=== PATIENT | male | born 1950 | race Caucasian/White ===

== ENCOUNTER 2016-07-09 10:18 | Emergency (ER) | payer OTHER ==
[2016-07-09 10:38] VITALS: BP 152/98; PULSE 76; TEMP 97.9; BMI 39.4
--- NOTE | 2016-07-09 12:43 | PDOC ---
History of Present Illness - General Chief Complaint: Hemorrhoids Stated Complaint: HEMORRHOIDS (LEAKING) Time Seen by Provider: 07/09/16 10:59 - History of Present Illness Initial Comments: 07/17/16 08:25 CHIEF COMPLAINT: bleeding hemorrhoids HISTORY OF PRESENT ILLNESS: 66 yo M with hx of diabetes, perirectal abscess, and recurrent hemorrhoids presents to fast track with "leaking" hemorrhoid. Patient states he was concerned because he has had surgery for a perirectal abscess previously "and wanted to catch it early if it was that again." Patient states when he wipes there is blood. Patient denies fever, chills, nausea, vomitnig, diarrhea, or pain to rectum. No recent travel or sick contacts. PAST MEDICAL HISTORY: as per hpi FAMILY HISTORY: Denies SOCIAL HISTORY: Denies tobacco, alcohol, illicit drug use. SURGICAL HISTORY: Denies ALLERGIES: No known drug allergies REVIEW OF SYSTEMS General/Constitutional: Denies fever or chills. Denies weakness, weight change. HEENT: Denies change in vision. Denies ear pain or discharge. Denies sore throat. Cardiovascular: Denies chest pain or shortness of breath. Respiratory: Denies cough, wheezing, or hemoptysis. Gastrointestinal: Denies nausea, vomiting, diarrhea or constipation. Denies rectal bleeding. Genitourinary: Hemorrhoid, "feels like it's leaking." Denies dysuria, frequency , or change in urination. Musculoskeletal: Denies joint or muscle swelling or pain. Denies neck or back pain. Skin: Denies rash or easy bruising. Neurologic: Denies headache, vertigo, loss of consciousness, or loss of sensation. PHYSICAL EXAM General Appearance: Well-appearing, appropriately dressed. No apparent distress , no intoxication. HEENT: EOMI, PERRLA, normal ENT inspection, normal voice, TMs normal, pharynx normal. No conjunctival pallor. No photophobia, scleral icterus. Neck: Supple. Trachea midline. No tenderness, rigidity, carotid bruit, stridor , lymphadenopathy, or thyromegaly. Respiratory/Chest: Lungs CTAB. Cardiovascular: RRR. S1, S2. Vascular Pulses: Dorsalis-Pedis (R): 2+, Dorsalis-Pedis (L): 2+ Gastrointestinal/Abdominal: Normal bowel sounds. Abdomen soft, non-distended. No tenderness or rebound tenderness. No organomegaly, pulsatile mass, guarding , hernia, hepatomegaly, splenomegaly. Genitourinary: 1cm x 1cm painless thrombosed external hemorrhoid to 9 o'clock. No discharge, blood, fluctuance, warmth, erythema. No abscess appreciated. Musculoskeletal/Extremities: Normal inspection. FROM of all extremities, normal capillary refill. Pelvis Stable. No CVA tenderness. No tenderness to extremities, pedal edema, swelling, erythema or deformity. Integumentary: Appropriate color, dry, warm. No cyanosis, erythema, jaundice or rash Neurologic: personal secretary II-XII intact. Fully oriented, alert. Appropriate mood/affect. Motor strength 5/5. No appreciable EOM palsy, facial droop or sensory deficit. Past History - Past Medical History Allergies/Adverse Reactions: Allergies Allergy/AdvReac Type Severity Reaction Status Date / Time No Known Allergies Allergy Verified 07/09/16 10:34 Home Medications: Ambulatory Orders Amlodipine Besylate [Norvasc -] 5 mg PO DAILY 08/04/14 Aspirin [ASA -] 325 mg PO DAILY 08/04/14 Atorvastatin Ca [Lipitor] 40 mg PO HS 08/04/14 Clopidogrel Bisulfate [Plavix -] 75 mg PO DAILY 08/04/14 Ergocalciferol [Drisdol -] 2,000 unit PO BID 08/04/14 Glipizide [Glipizide ER] 10 mg PO BID 08/04/14 Insulin Aspart [Novolog Flexpen] 0 unit SQ BIDAC 08/04/14 Metoprolol Tartrate [Lopressor -] 25 mg PO BID 08/04/14 Tamsulosin HCl [Flomax -] 0.4 mg PO DAILY 08/04/14 Lantus Solostar PEN - 55 units SQ HS 03/04/15 Psyllium Husk [Metamucil] 40 gm PO DAILY #400 gm 07/09/16 Anemia: No Asthma: No Cancer: No Cardiac Disorders: Yes (4 STENTS/ [place] 2014, BYPASS August) CVA: No COPD: No CHF: No Dementia: No Diabetes: Yes GI Disorders: No Disorders: No HTN: Yes Hypercholesterolemia: Yes Liver Disease: No Seizures: No Thyroid Disease: No - Surgical History Abdominal Surgery: (presently has abdominal hernia) Appendectomy: No Cardiac Surgery: Yes (cardiac stents x 4,August bypass) Cholecystectomy: No Lung Surgery: No Neurologic Surgery: No Orthopedic Surgery: No - Psycho/Social/Smoking Cessation Hx Anxiety: No Suicidal Ideation: No Smoking History: Former smoker Have you smoked in the past 12 months: No Number of Cigarettes Smoked Daily: 0 If you are a former smoker, when did you quit?: 45 yrs ago Cigars Per Day: 0 Information on smoking cessation initiated: No Hx Alcohol Use: No Drug/Substance Use Hx: No Substance Use Type: None Hx Substance Use Treatment: No *Physical Exam - Vital Signs Last Vital Signs Temp Pulse Resp BP Pulse Ox 97.9 F 76 19 152/98 95 07/09/16 10:34 07/09/16 10:34 07/09/16 10:34 07/09/16 10:34 07/09/16 10:34 Medical Decision Making - Medical Decision Making 07/09/16 12:43 66 yo M with hx of diabetes, perirectal abscess, hemorrhoids presents to fast track with thrombosed hemorrhoid. Spoke to general surgeon consult Nita Herrmann. Dr. Herrmann advised not to incise hemorrhoid due to patient being on Plavix. Patient Dr. Mcmullen suggests patient to use sitz baths and other conservative treatment. Peak advised patient to use lubricant prior to defecation. Prescription for Metamucil sent to pharmacy. Advised patient to follow up with surgery next week. Advised patient of signs and symptoms for return to ER. 07/17/16 08:31 *DC/Admit/Observation/Transfer Diagnosis at time of Disposition: Hemorrhoids Qualifiers: Hemorrhoid type: unspecified Qualified Code(s): K64.9 - Unspecified hemorrhoids - Discharge Dispostion Disposition: HOME Condition at time of disposition: Stable Admit: No - Prescriptions Prescriptions: Psyllium Husk [Metamucil] 40 gm PO DAILY #400 gm - Referrals Referrals: Hernando Santillan MD [Primary Care Provider] - Rito Velazquez MD [Staff Physician] - - Patient Instructions Printed Discharge Instructions: DI for Hemorrhoids Additional Instructions: Please take Metamucil daily. Follow up with Dr. Mcmullen's office next week. Please use cold water for sitz baths to decrease in the inflammation in your rectal area. It is advised to use lubricant prior to defecation. Do NOT use toilet paper, only use baby wipes or wash your rectal area with water after using the bathroom. If you experience severe bleeding, fever, chills, nausea, vomiting, diarrhea, or are unable to defecate, pleaser return to the ER.
== END 2016-07-09 12:57 | disposition home or self-care (01) ==
LOC: JERFT 10:18
DX: K64.9 Unspecified hemorrhoids (principal); Z95.5 Presence of coronary angioplasty implant and graft; Z79.01 Long term (current) use of anticoagulants; E11.9 Type 2 diabetes mellitus without complications; I10 Essential (primary) hypertension; E78.00 Pure hypercholesterolemia, unspecified; Z87.891 Personal history of nicotine dependence; Z79.4 Long term (current) use of insulin
CPT/HCPCS: 99281-25

== ENCOUNTER 2016-11-24 12:37 | Emergency (ER) | payer OTHER ==
[2016-11-24 12:59] VITALS: BP 148/92; PULSE 69; TEMP 98.4; BMI 41.1
--- NOTE | 2016-11-24 14:21 | PDOC ---
History of Present Illness - General Chief Complaint: Injury Stated Complaint: FALL Time Seen by Provider: 11/24/16 12:40 History Source: Patient Exam Limitations: No Limitations - History of Present Illness Initial Comments: 11/24/16 13:21 66-year-old male with history of diabetes and obesity presents to the ED status post mechanical fall. Patient states was taking a shower when the shampoo suds on the bathtub floor became excessive causing him to slip backwards landing on his back breaking the toilet bowl outside of the shower. patient states had no LOC was able to get up immediately and now complaining of right flank pain. Patient denies hematuria, difficulty breathing, radiation of pain, or difficulty ambulating. Occurred: reports: just prior to arrival Severity: reports: mild Pain Location: reports: back Method of Injury: Yes: direct blow, fall Modifying Factors: improves with: None Loss of Consciousness: no loss of consciousness Associated Symptoms (Fall): denies symptoms Past History - Travel Traveled outside of the country in the last 30 days: No Close contact w/someone who was outside of country & ill: No - Past Medical History Allergies/Adverse Reactions: Allergies Allergy/AdvReac Type Severity Reaction Status Date / Time No Known Allergies Allergy Verified 11/24/16 12:54 Home Medications: Ambulatory Orders Amlodipine Besylate [Norvasc -] 5 mg PO DAILY 08/04/14 Aspirin [ASA -] 325 mg PO DAILY 08/04/14 Atorvastatin Ca [Lipitor] 40 mg PO HS 08/04/14 Clopidogrel Bisulfate [Plavix -] 75 mg PO DAILY 08/04/14 Ergocalciferol [Drisdol -] 2,000 unit PO BID 08/04/14 Glipizide [Glipizide ER] 10 mg PO BID 08/04/14 Insulin Aspart [Novolog Flexpen] 0 unit SQ BIDAC 08/04/14 Metoprolol Tartrate [Lopressor -] 25 mg PO BID 08/04/14 Tamsulosin HCl [Flomax -] 0.4 mg PO DAILY 08/04/14 Lantus Solostar PEN - 55 units SQ HS 03/04/15 Psyllium Husk [Metamucil] 40 gm PO DAILY #400 gm 07/09/16 Ciprofloxacin HCl [Cipro] 500 mg PO BID #14 tablet 11/24/16 Anemia: No Asthma: No Cancer: No Cardiac Disorders: Yes (4 STENTS/ [place] 2014, BYPASS August) CVA: No COPD: No CHF: No Dementia: No Diabetes: Yes GI Disorders: No Disorders: No HTN: Yes Hypercholesterolemia: Yes Liver Disease: No Seizures: No Thyroid Disease: No - Surgical History Abdominal Surgery: (presently has abdominal hernia) Appendectomy: No Cardiac Surgery: Yes (cardiac stents x 4,August bypass) Cholecystectomy: No Lung Surgery: No Neurologic Surgery: No Orthopedic Surgery: No - Psycho/Social/Smoking Cessation Hx Anxiety: No Suicidal Ideation: No Smoking History: Unknown if ever smoked Have you smoked in the past 12 months: No Number of Cigarettes Smoked Daily: 0 If you are a former smoker, when did you quit?: 45 yrs ago Cigars Per Day: 0 Information on smoking cessation initiated: No Hx Alcohol Use: No Drug/Substance Use Hx: No Substance Use Type: None Hx Substance Use Treatment: No Patient Lives Alone: No Lives with/in: parents Review of Systems - Review of Systems Able to Perform ROS?: Yes Constitutional: No: Symptoms Reported HEENTM: No: Symptoms Reported Respiratory: No: Symptoms reported Cardiac (ROS): No: Symptoms Reported ABD/GI: No: Symptoms Reported : Yes: Flank Pain. No: Hematuria Musculoskeletal: Yes: Back Pain (rt laterally) Integumentary: No: Symptoms Reported Neurological: No: Symptoms reported *Physical Exam - Vital Signs Last Vital Signs Temp Pulse Resp BP Pulse Ox 98.4 F 69 18 148/92 100 11/24/16 12:40 11/24/16 12:40 11/24/16 12:40 11/24/16 12:40 11/24/16 12:40 - Physical Exam General Appearance: Yes: Nourished, Appropriately Dressed. No: Apparent Distress HEENT: negative: Pale Conjunctivae Neck: positive: Normal Thyroid. negative: Tender, Supple, Decreased range of motion Respiratory/Chest: positive: Lungs Clear, Normal Breath Sounds. negative: Respiratory Distress, Accessory Muscle Use Cardiovascular: positive: Regular Rhythm, Regular Rate. negative: Murmur Gastrointestinal/Abdominal: positive: Soft. negative: Tenderness Musculoskeletal: positive: CVA Tenderness (R) (mild). negative: Vertebral Tenderness Extremity: positive: Normal Capillary Refill. negative: Pedal Edema Integumentary: positive: Normal Color, Warm, Erythema (right flank/right mid axillary at 11th rib) Neurologic: positive: Motor Strength 5/5 (ambulatory) Heart Score/ECG Review - ECG Intrepretation Rhythm: Regular Rhythm (1st degree av block at 67. left axis deviation) ED Treatment Course - RADIOLOGY Radiology Studies Ordered: Category Date Time Status ABDOMEN & PELVIS CT W/O CONTR [CT] Stat CT Scan 11/24/16 13:20 Ordered Medical Decision Making - Medical Decision Making 11/24/16 14:36 Patient status post mechanical fall landing on a toilet striking his right flank region. Patient with tender erythematous area over his right CVA region. Patient ordered for urine including an abdominal CT without contrast. 11/24/16 15:[address] shows a 14 mm hypodense nodule in the right adrenal gland consistent with an adenoma. Right kidney appears unremarkable. Left kidney with noted cyst. Pelvis shows an enlarged prostate. There is colonic diverticulosis without diverticulitis. There is a left inguinal hernia with fat and umbilical hernia containing fat. Otherwise CT is unremarkable showing no acute posttraumatic abnormalities on the right side including liver and the right kidney. Patient awaiting urinalysis. Patient ambulated in the ER without assistance. 11/24/16 17:06 Laboratory Tests 11/24/16 15:45 Urine Protein 2+ H Urine Glucose (UA) 3+ H Urine Blood 2+ H Urine Nitrite Positive Ur Leukocyte Esterase 3+ H Urine RBC 14 Urine WBC 925 urine cx ordered 11/24/16 17:07 Patient's previous urine culture from 2014 was sensitive to Cipro secondary to staph aureus. *DC/Admit/Observation/Transfer Diagnosis at time of Disposition: UTI (urinary tract infection) Qualifiers: Urinary tract infection type: acute cystitis Hematuria presence: with hematuria Qualified Code(s): N30.01 - Acute cystitis with hematuria Fall Qualifiers: Encounter type: initial encounter Qualified Code(s): W19.XXXA - Unspecified fall, initial encounter - Discharge Dispostion Disposition: HOME Condition at time of disposition: Good - Prescriptions Prescriptions: Ciprofloxacin HCl [Cipro] 500 mg PO BID #14 tablet - Referrals Referrals: Hernando Santillan MD [Primary Care Provider] - - Patient Instructions Printed Discharge Instructions: DI for Urinary Tract Infection (UTI), How to Prevent Falls Additional Instructions: Please take Cipro as prescribed until completed. Please follow-up with your primary care physician in one week to have repeat urine tested. Please return to ED if you develop worsening pain hematuria, or nausea.
[2016-11-24 16:50] LABS: URINE APPEARANCE CLOUDY; URINE BILIRUBIN NEGATIVE (NEGATIVE); URINE COLOR YELLOW; URINE GLUCOSE (UA) 3+ (NEGATIVE); URINE KETONE NEGATIVE (NEGATIVE); URINE NITRITE POSITIVE (NEGATIVE); URINE UROBILINOGEN NEGATIVE E.U./dl (0.2-1.0)
[2016-11-24 16:57] LABS: URINE BLOOD 2+ (NEGATIVE); URINE LEUK ESTERASE 3+ (NEGATIVE); URINE PROTEIN 2+ (NEGATIVE)
[2016-11-24 16:58] LABS: URINE MUCUS RARE; URINE RBC 14 /hpf (0-3); URINE WBC 925 /hpf (3-5); YEAST MANY
[2016-11-24] MEDS ORDERED: CIPROFLOXACIN 500 MG TABLET (RESTRICTED TO ID) PO ONE (17:23)
--- NOTE | 2016-11-25 12:35 | EKG ---
Test Reason : Blood Pressure : / mmHG Vent. Rate : 067 BPM Atrial Rate : 067 BPM P-R Int : 218 ms QRS Dur : 124 ms QT Int : 460 ms P-R-T Axes : 036 -38 094 degrees QTc Int : 486 ms SINUS RHYTHM WITH 1ST DEGREE A-V BLOCK LEFT AXIS DEVIATION LEFT VENTRICULAR HYPERTROPHY WITH QRS WIDENING AND REPOLARIZATION ABNORMALITY ABNORMAL ECG WHEN COMPARED WITH ECG OF 13-APR-2015 08:44, PREMATURE VENTRICULAR COMPLEXES ARE NO LONGER PRESENT Confirmed by MARINO HUITRON MD ([id number]) on 11/25/2016 12:35:25 PM Referred By: Confirmed By:MARINO HUITRON MD
== END 2016-11-24 17:58 | disposition home or self-care (01) ==
LOC: JER 12:37
DX: S30.1XXA Contusion of abdominal wall, initial encounter (principal); N30.01 Acute cystitis with hematuria; W01.198A Fall on same level from slipping, tripping and stumbling with subsequent striking against other object, initial encounter; W18.2XXA Fall in (into) shower or empty bathtub, initial encounter; Y93.E1 Activity, personal bathing and showering; Y92.031 Bathroom in apartment as the place of occurrence of the external cause; I25.10 Atherosclerotic heart disease of native coronary artery without angina pectoris; I10 Essential (primary) hypertension; Z95.1 Presence of aortocoronary bypass graft; Z95.5 Presence of coronary angioplasty implant and graft; E11.9 Type 2 diabetes mellitus without complications; Z79.4 Long term (current) use of insulin; E78.00 Pure hypercholesterolemia, unspecified
CPT/HCPCS: 74176-TC; 81003; 81015; 93005; 93010; 99283-25

== ENCOUNTER 2018-05-21 13:01 | Inpatient (IN) | payer OTHER ==
[2018-05-21] MEDS ORDERED: VANCOMYCIN 1,500 MG in DEXTROSE 5%-WATER - 500 ML IVPB ONE (13:46)
[2018-05-21] MEDS ORDERED: PIPERACILLIN/TAZOB 4.5 GM 4.5 GM in DEXTROSE 5%-WATER 100 ML IVPB ONE (13:48)
--- NOTE | 2018-05-21 13:49 | PDOC ---
Attending Attestation - Medical Decision Making 05/21/18 16:33 Call placed to [facility] at 4:03. Waiting for a call back from Dr. Robins. Case discussed with Dr. Robins at 4:15. Call placed to Dr. Nelson 4:18, spoke with the service, waiting for a call back. 05/21/18 16:[address] Nelson. 05/21/18 16:[address] Vivian Borrego. Spoke with the service, waiting for a call back. 05/21/18 16:[address] Vivian Borrego. 05/21/18 17:38 05/21/18 18:[address] Santillan for admission at 6:[address] Santillan. 05/21/18 18:[address] Vivian Borrego. 05/21/18 18:[address] Borrego. 05/21/18 19:[address] Borrego again after reviewing the CT. THIS IS A PRELIMINARY REPORT FROM [employer] [employer] [employer] DATE OF SERVICE: 2018-05-21 15:33:29 EXAM: Left lower extremity arterial Doppler duplex sonogram. Clinical indication: Evaluate left lower extremity flow. No further information is provided. Findings: The peak systolic velocities within the left common femoral, superficial femoral, popliteal arteries are within normal limits and all demonstrate a normal high resistance triphasic arterial Doppler waveform. The peak systolic velocity within the left posterior tibial artery is slightly elevated at 123 cm/s, but does not demonstrate an abnormal arterial waveform. The left posterior tibial artery demonstrates a normal triphasic R till Doppler waveform. Impression: Unremarkable left lower extremity arterial Doppler duplex sonogram, without sonographic evidence of significant peripheral arterial disease. THIS DOCUMENT HAS BEEN ELECTRONICALLY SIGNED Gerber Post MD 05/21/2018 16:21 EST Exam: Left lower extremity venous Doppler sonogram. Clinical indication: Left calf tenderness. Findings: There is normal compression, augmentation, and spontaneous color Doppler flow demonstrated from the left calf through to the left common femoral vein inclusive. Impression: No left lower extremity DVT. THIS DOCUMENT HAS BEEN ELECTRONICALLY SIGNED Gerber Post MD 05/21/2018 16:22 EST 05/21/18 19:14 THIS IS A PRELIMINARY REPORT FROM [facility] [employer] DATE OF SERVICE: 2018-05-21 18:00:14 EXAM: CT bilateral lower extremity without IV contrast. Clinical indication: Rule out necrotizing fasciitis of the left foot. Technique: Axial unenhanced CT images from the distal bilateral tibia and fibula through the bilateral feet were obtained followed by coronal and sagittal reformats. Findings: There is some motion artifact at the level of the bilateral toes. There is skin thickening and subcutaneous fat stranding/inflammatory changes extending from the right great toe along the dorsal surface of the left foot through into the visualized portions of the left ankle region. In addition, there is fairly extensive soft tissue gas in around the left great toe with a small amount of soft tissue gas extending onto the dorsum of the left foot up to the level of the ankle joint consistent with gas-forming bacteria. Cannot make a diagnosis of necrotizing fasciitis based on the imaging appearance. Unable to comment on evidence of osteomyelitis within the toes due to motion artifact. There is no evidence of erosive or bony abnormality through the remainder of the left foot and ankle. There is some mild degenerative osteophytic changes at the right first tarsal metatarsal joint. The remainder of the visualized bony structures on the right foot are within normal limits. The soft tissues within the right foot are unremarkable. Impression: 1. Inflammatory changes with soft tissue gas extending from the right great left great toe along the dorsum of the left foot to at least the level of the ankle consistent with infectious etiology and probable gas-forming bacteria. Cannot make a diagnosis of necrotizing fasciitis based on the imaging appearance. 2. Unable to comment on osteomyelitis involving the great toe due to motion artifact THIS DOCUMENT HAS BEEN ELECTRONICALLY SIGNED Gerber Post MD 05/21/2018 18:02 EST 05/21/18 16:33 Documentation prepared by Betzy Padilla, acting as certified medical transcriptionist for Lynne Velazquez <Betzy Padilla - Last Filed: 05/21/18 19:14> - Resident Resident Name: Hood Crespo - ED Attending Attestation I have performed the following: I have examined & evaluated the patient, The case was reviewed & discussed with the resident, I agree w/resident's findings & plan, Exceptions are as noted - HPI HPI: 05/21/18 13:58 The patient is a 67-year-old male with past medical history significant for CAD s/p x4 stents, [place] (2014), Bypass (08/14/2014), DM w/ neuropathy, HTN, HLD and Hx of Right foot digit infection with IV abx treatment s/p multiple right digit amputation presents to the emergency department with left great toe wound for the past 2 weeks. The patient presents with a progressively worsening wound to the toe, associated with radiating redness and warmth traveling up the leg to the knee. The patient reports applying cream and soaking the toe for 2 hours, without relief. The patient reports associated symptoms of weakness, fatigue and decreased appetite since Tuesday. The patient reports he is ambulatory at home. Denies fever, chills, chest pain, shortness of breath, nausea, vomiting, urinary symptoms or changes in bowel habits. Denies abdominal pain or recent diarrhea. Allergies: NKDA Social history: Former smoker, no alcohol or drug use. Surgical history: Bypass, Stents. PCP: Dr. Santillan. Vascular Surgeon: Dr. Nelson, Denies any recent follow ups. - Physicial Exam PE: 05/21/18 14:02 agree with resident exam - Medical Decision Making 05/21/18 14:02 67yo M with MMP including DM presents to the ED with gangrenous L 1st toe with cellulitis. DDx includes infected diabetic foot wound vs nec fasc vs LLE arterial thrombus. Plan: -labs -XR -US arterial and venous -CT -Vanc/Zosyn -admit 05/21/18 16:16 XR foot with gas near ulcer, possible nec fasc? No crepitus on exam In light of WBC 17.5, elevated CRP, gas on XR, case discussed with Dr. Robins by Dr. Crespo, she states that surgery does not get involved when it involves foot 05/21/18 17:[address] Nelson who has reviewed XR, believes gas is like adjacent to wound and does not represent nec fasc. Is unable to see pt, requests we call Dr. Borrego Case discussed with Dr. Borrego, also believes gas is 2/2 ulcer and not nec fasc especially as wound has been present for [address] of the foot to rule out nec fasc. States will come in if CT is positive for fascial gas. CT ordered, currently pt from ICU on the table, pt will be taken next for CT. 05/21/18 18:52 CT done, Dr. Borrego reviewing at home Read pending 05/21/18 19:[address] Borrego who has reviewed imaging He states no evidence of gas tracking in extremity REcommends continuing abx, admission Radiology read pending 05/21/18 19:11 Read by [facility] as inflammatory changes with gas extending from toe to L ankle consistent with gas forming bacteria. Concern for nec fasc Spoke again with Dr. Borrego, he is on his way in to evaluate patient given concern for nec fasc Case discussed with Dr. Santillan, pt accepted for admission Case discussed in detail with admitting physician including history, physical exam and ancillary studies. Admitting physician has assumed care for the patient, will follow all pending diagnostics and will complete the evaluation and treatment. <Gloria Velazquez - Last Filed: 05/23/18 03:44> *DC/Admit/Observation/Transfer <Betzy Padilla - Last Filed: 05/21/18 19:14> - Discharge Dispostion Decision to Admit order: Yes - Attestations Physician Attestion: 05/21/18 19:05 I, Dr. Gloria Velazquez MD, attest that this document has been prepared under my direction and personally reviewed by me in its entirety. I further attest, that it accurately reflects all work, treatment, procedures and medical decision -making performed by me. <Gloria Velazquez - Last Filed: 05/23/18 03:44> Diagnosis at time of Disposition: Wound cellulitis - Discharge Dispostion Condition at time of disposition: Stable Heart Score/ECG Review #1 05/21/18 14:11 Twelve-lead EKG was performed and reviewed by me. Sinus rhythm, rate 92. First- degree AV block. Left axis deviation. +LVH. When compared to EKG from 11/24/2016 , no significant changes. <Gloria Velazquez - Last Filed: 05/23/18 03:44>
[2018-05-21] MEDS ORDERED: PIPERACILLIN/TAZOB 4.5 GM 4.5 GM/100 ML BAG IVPB ONE (14:16)
--- NOTE | 2018-05-21 14:26 | PDOC ---
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 Pt states the toe has been worsening with spreading infection , redness and warmth up into the left calf with bloody drainage malodorous. Pt reports applying cream and soaking his toe for 2 hours last week and noted a progression in the infection since then. Pt admits to decreased appetite (no oral intake since Tuesday, only drinking water) generalized weakness and an episode of watery stool last night but denies F/C/N/V, CP, SOB, changes in bowel or bladder habits. Past History - Past Medical History Allergies/Adverse Reactions: Allergies Allergy/AdvReac Type Severity Reaction Status Date / Time No Known Allergies Allergy Verified 05/21/18 13:12 Home Medications: Ambulatory Orders Amlodipine Besylate [Norvasc -] 5 mg PO DAILY 08/04/14 Aspirin [ASA -] 81 mg PO DAILY 08/04/14 Atorvastatin Ca [Lipitor] 40 mg PO HS 08/04/14 Clopidogrel Bisulfate [Plavix -] 75 mg PO DAILY 08/04/14 Ergocalciferol [Vitamin D2] 2,000 unit PO BID 08/04/14 Glipizide [Glipizide ER] 10 mg PO DAILY 08/04/14 Insulin Aspart [Novolog Flexpen] 0 unit SQ BIDAC 08/04/14 Metoprolol Tartrate [Lopressor -] 50 mg PO DAILY 08/04/14 Tamsulosin HCl [Flomax -] 0.4 mg PO DAILY 08/04/14 Insulin Glargine,Hum.rec.anlog [Basaglar Kwikpen U-100] 31 unit SQ HS 05/21/18 Anemia: No Asthma: No Cancer: No Cardiac Disorders: Yes (4 STENTS/ [place] 2014, BYPASS August) CVA: No COPD: No CHF: No Dementia: No Diabetes: Yes GI Disorders: No Disorders: No HTN: Yes Hypercholesterolemia: Yes Liver Disease: No Seizures: No Thyroid Disease: No - Surgical History Abdominal Surgery: (presently has abdominal hernia) Appendectomy: No Cardiac Surgery: Yes (cardiac stents x 4,August bypass) Cholecystectomy: No Lung Surgery: No Neurologic Surgery: No Orthopedic Surgery: No - Suicide/Smoking/Psychosocial Hx Smoking History: Never smoked Have you smoked in the past 12 months: No Number of Cigarettes Smoked Daily: 0 If you are a former smoker, when did you quit?: 45 yrs ago Cigars Per Day: 0 Hx Alcohol Use: No Drug/Substance Use Hx: No Substance Use Type: None Hx Substance Use Treatment: No Review of Systems - Review of Systems Constitutional: Yes: Weakness (generalized). No: Chills, Fever Respiratory: No: Shortness of Breath Cardiac (ROS): Yes: Lightheadedness ABD/GI: No: Nausea, Vomiting : No: Burning, Dysuria Musculoskeletal: Yes: Joint Swelling. No: Joint Pain Integumentary: Yes: Other (swollen left foot and calf with drainage and black scar to left great toe) *Physical Exam - Vital Signs Last Vital Signs Temp Pulse Resp BP Pulse Ox 98 F 92 H 18 131/104 H 95 05/21/18 13:08 05/21/18 13:08 05/21/18 13:08 05/21/18 13:08 05/21/18 13:08 Moderate Sedation - Procedure Monitoring Vital Signs: Procedure Monitoring Vital Signs Temperature 98 F 05/21/18 13:08 Pulse Rate 92 H 05/21/18 13:08 Respiratory Rate 18 05/21/18 13:08 Blood Pressure 131/104 H 05/21/18 13:08 O2 Sat by Pulse Oximetry (%) 95 05/21/18 13:08 ED Treatment Course - LABORATORY CBC & Chemistry Diagram: 05/21/18 14:07 05/21/18 14:07 - RADIOLOGY Radiology Studies Ordered: Category Date Time Status ANKLE & FOOT-LEFT* [RAD] Stat Radiology 05/21/18 13:42 Ordered CHEST X-RAY PORTABLE* [RAD] Stat Radiology 05/21/18 13:53 Ordered LEG TIB/FIB-LEFT [RAD] Stat Radiology 05/21/18 13:42 Ordered DUPLEX VASCUL US-1 LEG [US] Stat Ultrasound 05/21/18 13:45 Ordered Medical Decision Making - Medical Decision Making 05/21/18 19:[address] Borrego in the ED who states it is likely a diabetic foot wound rather than Nec Fac and can wait until morning for the great right toe amputation. Pt will be kept NPO after Midnight *DC/Admit/Observation/Transfer Diagnosis at time of Disposition: Wound cellulitis - Discharge Dispostion Condition at time of disposition: Stable - Referrals - Patient Instructions - Post Discharge Activity
[2018-05-21 14:29] LABS: BASO % 0.3 % (0-2.0); HEMATOCRIT 40.5 % (35.4-49); LYMPH % 2.9 % (8-40); MCH 28.9 pg (25.7-33.7); MCHC 34.4 g/dl (32.0-35.9); MEAN CELL VOLUME 84.1 fl (80-96); MONO % 5.2 % (3.8-10.2); NEUT % 91.6 % (42.8-82.8); PLATELET COUNT 271 K/MM3 (134-434); RBC 4.82 M/mm3 (4.00-5.60); RDW 13.8 % (11.9-15.9); WHITE BLOOD COUNT 17.5 K/mm3 (4.0-10.0)
[2018-05-21 14:39] LABS: INR 1.43 (0.83-1.09); PROTHROMBIN TIME (PATIENT) 16.9 SEC (9.7-13.0)
[2018-05-21 14:42] LABS: ACTIVATED PTT 28.7 SECONDS (25.2-36.5)
[2018-05-21 14:49] LABS: ALBUMIN 2.3 g/dl (3.4-5.0); ALK PHOS 145 U/L (45-117); ANION GAP 12 MMOL/L (8-16); BILIRUBIN,TOTAL 1.8 mg/dL (0.2-1); BLOOD UREA NITROGEN 33 mg/dL (7-18); CALCIUM 7.7 mg/dL (8.5-10.1); CHLORIDE 95 mmol/L (98-107); CO2 22 mmol/L (21-32); CREATININE 2.2 mg/dL (0.55-1.3); GLUCOSE,RANDOM 251 mg/dL (74-106); POTASSIUM 4.8 mmol/L (3.5-5.1); SGOT/AST 31 U/L (15-37); SGPT/ALT 25 U/L (13-61); SODIUM 128 mmol/L (136-145); TOT PROT 6.6 g/dl (6.4-8.2)
[2018-05-21] MEDS ORDERED: SODIUM CHLORIDE 1,000 ML IV STA ×2 (15:05→16:18)
[2018-05-21] MEDS ORDERED: CLINDAMYCIN 900 MG PREMIX IVPB 900 MG/50 ML BAG IVPB ONE ×2 (16:21→16:58)
--- NOTE | 2018-05-21 19:10 | PN ---
Progress Note (short form) - Note Progress Note: Vascular Surgery Pt seen and examined. DRessing changed. Pt complains of left great toe infection for one week. On exam the left great toe is infected and pus can be expressed. Pt has WBC of 17.5, and is being covered with antibiotics. Pt is afebrle and in good spirits. CT scan reviewed. Pt does not have necrotizing fascities. Pt will need toe amputation. Pt prefers that Dr cardona do the procedure since that is his vascular Surgeon. I notified dr. Cardona and he will see pt in am. No need for any acute surgery right now. Joe rgaves DO
--- NOTE | 2018-05-21 19:27 | HP ---
Admitting History and Physical - Primary Care Physician PCP: Hernando Santillan - Admission History of Present Illness: 67-year-old male with past medical history significant for CAD s/p x4 stents, [place] (2014), Bypass (08/14/2014), DM w/ neuropathy, HTN, HLD and Hx of Right foot digit infection with IV abx treatment s/p multiple right digit amputation presents to the emergency department with left great toe wound for the past 2 weeks. The patient presents with a progressively worsening wound to the toe, associated with radiating redness and warmth traveling up the leg to the knee. The patient reports applying cream and soaking the toe for 2 hours, without relief. The patient reports associated symptoms of weakness, fatigue and decreased appetite since Tuesday. The patient reports he is ambulatory at home. - Past Medical History Cardiovascular: Yes: HTN, Hyperlipdemia Infectious Disease: Yes: Other. No: AIDS, C-Diff, Herpes Zoster, HIV, MRSA, STD 's, Tuberculosis, VREF Endocrine: Yes: Diabetes Mellitus - Past Surgical History Past Surgical History: Yes: None. No: AAA Repair, AICD, Amputation, Appendectomy, Arthrosocopy, AV Fistula/Graft, Bariatric Surgery, Breast Biopsy, Bypass, CABG, Carotid Endarterectomy, Cataract Removal, Cholecystectomy, Colectomy, Colonoscopy, Colostomy, Craniotomy, , Cystectomy, Hernia Repair, Hysterectomy, Ileal Conduit, Ileosotomy, Joint Replacement, Kidney Transplant, Laminectomy, Liver Transplant, Mastectomy, Nephrectomy, Oopherectomy , Orchiectomy, Permanent Pacemaker, Prostatectomy, Splenectomy, Stent, Thoracotomy, TURP, Tonsillectomy, Tubal Ligation, Upper Endoscopy, Valve Replacement, Vasectomy, Vein Stripping/Ligation - Smoking History Smoking history: Never smoked Have you smoked in the past 12 months: No Aproximately how many cigarettes per day: 0 If you are a former smoker, when did you quit?: 45 yrs ago - Alcohol/Substance Use Hx Alcohol Use: No - Social History ADL: Independent History of Recent Travel: No Home Medications - Allergies Allergies/Adverse Reactions: Allergies Allergy/AdvReac Type Severity Reaction Status Date / Time No Known Allergies Allergy Verified 05/21/18 13:12 - Home Medications Home Medications: Ambulatory Orders Amlodipine Besylate [Norvasc -] 5 mg PO DAILY 08/04/14 Aspirin [ASA -] 81 mg PO DAILY 08/04/14 Atorvastatin Ca [Lipitor] 40 mg PO HS 08/04/14 Clopidogrel Bisulfate [Plavix -] 75 mg PO DAILY 08/04/14 Ergocalciferol [Vitamin D2] 2,000 unit PO BID 08/04/14 Glipizide [Glipizide ER] 10 mg PO DAILY 08/04/14 Insulin Aspart [Novolog Flexpen] 0 unit SQ BIDAC 08/04/14 Metoprolol Tartrate [Lopressor -] 50 mg PO DAILY 08/04/14 Tamsulosin HCl [Flomax -] 0.4 mg PO DAILY 08/04/14 Insulin Glargine,Hum.rec.anlog [Basaglar Kwikpen U-100] 31 unit SQ HS 05/21/18 Amox-Tr/K Cl [Augmentin 500-125mg Tablet -] 1 tab PO BID@0800,1730 #20 tablet Family Disease History - Family Disease History Family Disease History: Diabetes: Mother Physical Examination Vital Signs: Vital Signs Temperature 98.0 F 05/21/18 19:21 Pulse Rate 63 05/21/18 19:21 Respiratory Rate 24 H 05/21/18 19:21 Blood Pressure 113/77 05/21/18 19:21 O2 Sat by Pulse Oximetry (%) 93 L 05/21/18 19:21 Constitutional: Yes: No Distress HENT: Yes: Atraumatic Neck: Yes: Supple Cardiovascular: Yes: Regular Rate and Rhythm Respiratory: Yes: CTA Bilaterally Gastrointestinal: Yes: Normal Bowel Sounds Extremities: Yes: Other (L big toe black/infected/gangrene?) Edema: Yes Peripheral Pulses WNL: Yes Neurological: Yes: Alert, Oriented Labs: CBC, BMP 05/21/18 14:07 05/21/18 14:07 Imaging - Results Cat Scan: Pending Problem List - Problems (1) Wound cellulitis Code(s): L03.90 - CELLULITIS, UNSPECIFIED (2) Cellulitis and abscess of foot Code(s): L03.119 - CELLULITIS OF UNSPECIFIED PART OF LIMB; L02.619 - CUTANEOUS ABSCESS OF UNSPECIFIED FOOT (3) Diabetic toe ulcer Code(s): E11.621 - TYPE 2 DIABETES MELLITUS WITH FOOT ULCER; L97.509 - NON- PRESSURE CHRONIC ULCER OTH PRT UNSP FOOT W UNSP SEVERITY (4) Sepsis Code(s): A41.9 - SEPSIS, UNSPECIFIED ORGANISM Assessment/Plan Laboratory Tests 05/21/18 05/21/18 05/21/18 14:07 14:07 14:07 WBC 17.5 H RBC 4.82 Hgb 14.0 Hct 40.5 MCV 84.1 MCH 28.9 MCHC 34.4 RDW 13.8 Plt Count 271 D MPV 9.0 Absolute Neuts (auto) 16.1 H Neutrophils % 91.6 H D Neutrophils % (Manual) 85.7 H Band Neutrophils % 6.1 Lymphocytes % 2.9 L D Lymphocytes % (Manual) 4.1 L Monocytes % 5.2 Monocytes % (Manual) 4 Eosinophils % 0.0 D Eosinophils % (Manual) 0.0 Basophils % 0.3 Basophils % (Manual) 0.0 Myelocytes % (Man) 0 Promyelocytes % (Man) 0 Blast Cells % (Manual) 0 Nucleated RBC % 0 Metamyelocytes 0 PT with INR INR PTT (Actin FS) Sodium 128 L Potassium 4.8 Chloride 95 L Carbon Dioxide 22 Anion Gap 12 BUN 33 H Creatinine 2.2 H Creat Clearance w eGFR 30.10 Random Glucose 251 H Lactic Acid 2.4 H* Calcium 7.7 L Total Bilirubin 1.8 H AST 31 ALT 25 Alkaline Phosphatase 145 H Creatine Kinase Creatine Kinase Index CK-MB (CK-2) Troponin I C-Reactive Protein Total Protein 6.6 Albumin 2.3 L 05/21/18 05/21/18 14:07 14:07 WBC RBC Hgb Hct MCV MCH MCHC RDW Plt Count MPV Absolute Neuts (auto) Neutrophils % Neutrophils % (Manual) Band Neutrophils % Lymphocytes % Lymphocytes % (Manual) Monocytes % Monocytes % (Manual) Eosinophils % Eosinophils % (Manual) Basophils % Basophils % (Manual) Myelocytes % (Man) Promyelocytes % (Man) Blast Cells % (Manual) Nucleated RBC % Metamyelocytes PT with INR 16.90 H INR 1.43 H PTT (Actin FS) 28.7 Sodium Potassium Chloride Carbon Dioxide Anion Gap BUN Creatinine Creat Clearance w eGFR Random Glucose Lactic Acid Calcium Total Bilirubin AST ALT Alkaline Phosphatase Creatine Kinase 408 H Creatine Kinase Index 1.4 CK-MB (CK-2) 5.9 H Troponin I 0.04 C-Reactive Protein 19.5 H Total Protein Albumin Active Medications Generic Name Dose Route Start Last Admin Trade Name Freq PRN Reason Stop Dose Admin Amlodipine Besylate 5 mg 05/22/18 10:00 Norvasc - PO DAILY [facility] Aspirin 81 mg 05/22/18 10:00 Asa - PO DAILY [facility] Atorvastatin Calcium 40 mg 05/21/18 22:00 Lipitor - PO HS [facility] Clopidogrel Bisulfate 75 mg 05/22/18 10:00 Plavix - PO DAILY [facility] Ergocalciferol 2,000 unit 05/21/18 22:00 Drisdol - PO BID [facility] Glipizide 10 mg 05/22/18 10:00 Glucotrol Xl - PO DAILY [facility] Heparin Sodium (Porcine) 5,000 unit 05/21/18 22:00 Heparin - SQ BID [facility] Insulin Aspart 1 vial 05/21/18 22:00 Novolog Vial Sliding Scale - SQ ACHS [facility] Protocol Metoprolol Tartrate 50 mg 05/22/18 10:00 Lopressor - PO DAILY [facility] Non-Formulary Medication 31 unit 05/21/18 22:00 Insulin Glargine,Hum.Rec.Anlog [Basagllouisa Connor U-100] SQ HS [facility] Tamsulosin HCl 0.4 mg 05/22/18 10:00 Flomax - PO DAILY [facility]
[2018-05-21 21:39] LABS: URINE APPEARANCE TURBID; URINE BILIRUBIN NEGATIVE (<2.0 mg/dL); URINE COLOR AMBER; URINE GLUCOSE (UA) 3+ (NEGATIVE); URINE KETONE NEGATIVE (NEGATIVE); URINE LEUK ESTERASE 3+ (NEGATIVE); URINE NITRITE NEGATIVE (NEGATIVE); URINE PROTEIN 2+ (NEGATIVE); URINE UROBILINOGEN 4.0 E.U/dl mg/dL (0.2-1.0)
[2018-05-21 21:45] LABS: EPI CELLS RARE /HPF (FEW)
[2018-05-21] MEDS ORDERED: PATIENT'S OWN MEDICATION (NON-FORMULARY) (Insulin Glargine,Hum.Rec.Anlog [Basaglar Kwikpen SQ SCH (22:00)
[2018-05-21] MEDS ORDERED: ATORVASTATIN CA 40 MG TABLET (FP) PO SCH (22:00)
[2018-05-21] MEDS ORDERED: INSULIN (LEVEMIR) 100 UNITS/ML UNITS SQ SCH (22:00)
[2018-05-21] MEDS ORDERED: ERGOCALCIFEROL (VITAMIN D2) 50,000 UNIT CAPSULE (FP) PO SCH (22:00)
[2018-05-21] MEDS: INSULIN SLIDING SCALE (NOVOLOG) 1 VIAL SQ SCH (22:39)
[2018-05-21] MEDS: HEPARIN NA (PORCINE) 5,000 UNITS/ML 1ML VIAL SQ SCH (22:45)
[2018-05-21 23:08] VITALS: BMI 40.6
[2018-05-21] MEDS ORDERED: FLU VACCINE QUAD 60 MCG/0.5 ML (MDV 18-19) IM ONE (23:08)
[2018-05-22 06:23] LABS: BASO % 0.8 % (0-2.0); EOS % 0.5 % (0-4.5); HEMOGLOBIN 13.1 GM/dL (11.7-16.9); LYMPH % 6.2 % (8-40); MCH 27.5 pg (25.7-33.7); MCHC 32.8 g/dl (32.0-35.9); MEAN CELL VOLUME 83.8 fl (80-96); MEAN PLT VOLUME 8.7 fl (7.5-11.1); MONO % 6.5 % (3.8-10.2); PLATELET COUNT 261 K/MM3 (134-434); RBC 4.77 M/mm3 (4.00-5.60); RDW 13.5 % (11.9-15.9); WHITE BLOOD COUNT 15.3 K/mm3 (4.0-10.0)
[2018-05-22] MEDS: INSULIN SLIDING SCALE (NOVOLOG) 1 VIAL SQ SCH ×4 (06:24→21:18)
[2018-05-22] MEDS ORDERED: glipiZIDE-XL 10 MG TAB.ER.24 (FP) PO SCH (07:00)
[2018-05-22 07:02] LABS: ALBUMIN 2.1 g/dl (3.4-5.0); ALK PHOS 140 U/L (45-117); ANION GAP 9 MMOL/L (8-16); BILIRUBIN,TOTAL 1.1 mg/dL (0.2-1); BLOOD UREA NITROGEN 42 mg/dL (7-18); CALCIUM 7.9 mg/dL (8.5-10.1); CHLORIDE 97 mmol/L (98-107); CO2 25 mmol/L (21-32); CREATININE 2.2 mg/dL (0.55-1.3); GLUCOSE,RANDOM 190 mg/dL (74-106); POTASSIUM 4.1 mmol/L (3.5-5.1); SGOT/AST 43 U/L (15-37); SGPT/ALT 29 U/L (13-61); SODIUM 131 mmol/L (136-145); TOT PROT 6.5 g/dl (6.4-8.2)
--- NOTE | 2018-05-22 09:53 | EKG ---
Test Reason : Blood Pressure : / mmHG Vent. Rate : 092 BPM Atrial Rate : 092 BPM P-R Int : 212 ms QRS Dur : 124 ms QT Int : 410 ms P-R-T Axes : 050 -35 079 degrees QTc Int : 507 ms SINUS RHYTHM WITH 1ST DEGREE A-V BLOCK WITH PREMATURE ATRIAL COMPLEXES LEFT AXIS DEVIATION LEFT VENTRICULAR HYPERTROPHY WITH QRS WIDENING AND REPOLARIZATION ABNORMALITY CANNOT RULE OUT SEPTAL INFARCT , AGE UNDETERMINED ABNORMAL ECG WHEN COMPARED WITH ECG OF 24-NOV-2016 12:53, PREMATURE ATRIAL COMPLEXES ARE NOW PRESENT Confirmed by DILLAN WOLFF, ACE ([id number]) on 05/22/2018 9:53:21 AM Referred By: Confirmed By:ACE GRIMALDO MD
[2018-05-22] MEDS: HEPARIN NA (PORCINE) 5,000 UNITS/ML 1ML VIAL SQ SCH ×2 (09:54→21:17)
[2018-05-22] MEDS ORDERED: ASPIRIN 81 MG CHEWABLE TABLETS PO SCH (10:00)
[2018-05-22] MEDS ORDERED: METOPROLOL TARTRATE 50 MG TABLET (FP) PO SCH (10:00)
[2018-05-22] MEDS ORDERED: CHOLECALCIFEROL (VITAMIN D3) 1,000 UNIT TABLET (FP) PO SCH (10:00)
[2018-05-22] MEDS ORDERED: CLOPIDOGREL BISULFATE 75 MG TABLET (FP) PO SCH (10:00)
[2018-05-22] MEDS ORDERED: TAMSULOSIN HCL 0.4 MG CAP PO SCH (10:00)
[2018-05-22] MEDS ORDERED: amLODIPine BESYLATE 10 MG TABLET (FP) PO SCH (10:00)
--- NOTE | 2018-05-22 13:05 | CON.ID ---
Consult Consult Specialty:: infectious diseases Reason for Consultation:: gangrene of the toe - History of Present Illness Chief Complaint: pain swelling discoloration foul smell of the toe lt foot History of Present Illness: 67-year-old male with past medical history significant for CAD s/p x4 stents, [place] (2014), Bypass (08/14/2014), DM w/ neuropathy, HTN, HLD and Hx of Right foot digit infection with IV abx treatment s/p multiple right digit amputation presents to the emergency department with left great toe wound for the past 2 weeks. The patient presents with a progressively worsening wound to the toe, associated with radiating redness and warmth traveling up the leg to the knee. The patient reports applying cream and soaking the toe for 2 hours, without relief. The patient reports associated symptoms of weakness, fatigue and decreased appetite since Tuesday. The patient reports he is ambulatory at home. patient states that he was literally standing in the cream and still did not help him patient also tried to clean the wound with multiple chemicals ultimately he came to the hospital and now the toe has changed color and also the swelling and cellulitis has spread to the leg - History Source History Provided By: Patient Limitations to Obtaining History: No Limitations - Past Medical History Cardio/Vascular: Yes: HTN, Hyperlipdemia Infectious Disease: Yes: Other. No: AIDS, C-Diff, Herpes Zoster, HIV, MRSA, STD 's, Tuberculosis, VREF Endocrine: Yes: Diabetes Mellitus Additional Medical History: osteomyelitis of left toe - Past Surgical History Past Surgical History: Yes: None. No: AAA Repair, AICD, Amputation, Appendectomy, Arthrosocopy, AV Fistula/Graft, Bariatric Surgery, Breast Biopsy, Bypass, CABG, Carotid Endarterectomy, Cataract Removal, Cholecystectomy, Colectomy, Colonoscopy, Colostomy, Craniotomy, , Cystectomy, Hernia Repair, Hysterectomy, Ileal Conduit, Ileosotomy, Joint Replacement, Kidney Transplant, Laminectomy, Liver Transplant, Mastectomy, Nephrectomy, Oopherectomy , Orchiectomy, Permanent Pacemaker, Prostatectomy, Splenectomy, Stent, Thoracotomy, TURP, Tonsillectomy, Tubal Ligation, Upper Endoscopy, Valve Replacement, Vasectomy, Vein Stripping/Ligation - Alcohol/Substance Use Hx Alcohol Use: No - Smoking History Smoking history: Never smoked Have you smoked in the past 12 months: No Aproximately how many cigarettes per day: 0 If you are a former smoker, when did you quit?: 45 yrs ago - Social History Usual Living Arrangement: Alone ADL: Independent History of Recent Travel: No Home Medications - Allergies Allergies/Adverse Reactions: Allergies Allergy/AdvReac Type Severity Reaction Status Date / Time No Known Allergies Allergy Verified 05/21/18 13:12 - Home Medications Home Medications: Ambulatory Orders RX: Amlodipine Besylate [Norvasc -] 5 mg PO DAILY 08/04/14 RX: Aspirin [ASA -] 81 mg PO DAILY 08/04/14 RX: Atorvastatin Ca [Lipitor] 40 mg PO HS 08/04/14 RX: Clopidogrel Bisulfate [Plavix -] 75 mg PO DAILY 08/04/14 RX: Ergocalciferol [Vitamin D2] 2,000 unit PO BID 08/04/14 RX: Glipizide [Glipizide ER] 10 mg PO DAILY 08/04/14 RX: Insulin Aspart [Novolog Flexpen] 0 unit SQ BIDAC 08/04/14 RX: Metoprolol Tartrate [Lopressor -] 50 mg PO DAILY 08/04/14 RX: Tamsulosin HCl [Flomax -] 0.4 mg PO DAILY 08/04/14 RX: Insulin Glargine,Hum.rec.anlog [Basaglar Kwikpen U-100] 31 unit SQ HS RX: Amox-Tr/K Cl [Augmentin 500-125mg Tablet -] 1 tab PO BID@0800,1730 #20 tablet 05/26/18 Family Disease History - Family Disease History Family Disease History: Diabetes: Mother Review of Systems - Review of Systems Constitutional: reports: No Symptoms Eyes: reports: No Symptoms HENT: reports: No Symptoms Neck: reports: No Symptoms Cardiovascular: reports: No Symptoms Respiratory: reports: No Symptoms Gastrointestinal: reports: No Symptoms Genitourinary: reports: No Symptoms Musculoskeletal: reports: Joint Swelling Integumentary: reports: Change in Color, Erythema, Wound Neurological: reports: No Symptoms Endocrine: reports: No Symptoms Hematology/Lymphatic: reports: No Symptoms Psychiatric: reports: No Symptoms Physical Exam Vital Signs: Vital Signs Temperature 98.2 F 05/22/18 09:00 Pulse Rate 79 05/22/18 09:00 Respiratory Rate 20 05/22/18 09:00 Blood Pressure 148/96 05/22/18 09:00 O2 Sat by Pulse Oximetry (%) 93 L 05/21/18 21:22 Constitutional: Yes: Well Nourished, No Distress, Calm HENT: Yes: Atraumatic Neck: Yes: Supple, Trachea Midline Cardiovascular: Yes: Regular Rate and Rhythm Respiratory: Yes: Regular, CTA Bilaterally Gastrointestinal: Yes: Normal Bowel Sounds, Soft Musculoskeletal: Yes: Other Extremities: Yes: Cool, Erythema, Other Wound/Incision: Yes: Other (gangrenous toe) Neurological: Yes: Alert, Oriented Psychiatric: Yes: Alert, Oriented Labs: CBC, BMP 05/22/18 05:58 05/22/18 05:58 Imaging - Results Chest X-ray: Report Reviewed, Image Reviewed X-ray: Report Reviewed, Image Reviewed Cat Scan: Report Reviewed, Image Reviewed Assessment/Plan Problem List - Problems (1) Wound cellulitis Code(s): L03.90 - CELLULITIS, UNSPECIFIED (2) Cellulitis and abscess of foot Code(s): L03.119 - CELLULITIS OF UNSPECIFIED PART OF LIMB; L02.619 - CUTANEOUS ABSCESS OF UNSPECIFIED FOOT (3) Diabetic toe ulcer Code(s): E11.621 - TYPE 2 DIABETES MELLITUS WITH FOOT ULCER; L97.509 - NON- PRESSURE CHRONIC ULCER OTH PRT UNSP FOOT W UNSP SEVERITY plan will start patient on iv vascular to see the patient patient needs amputation rest as per the team
[2018-05-22] MEDS ORDERED: DEXTROSE 5%-WATER - 50 ML IVPB ONE (13:55)
[2018-05-22] MEDS ORDERED: PIPERACILLIN/TAZOBACTAM 2.25 GM VIAL IVPB ONE (13:55)
[2018-05-22] MEDS: PIPERACILLIN/TAZOB 2.25 GM 2.25 GM in DEXTROSE 5%-WATER - 50 ML IVPB SCH ×2 (13:58→17:53)
[2018-05-22] MEDS ORDERED: BUPIVACAINE HCL/PF 0.5% (5MG/ML) 10 ML VIAL ONE (16:16)
[2018-05-22] MEDS ORDERED: LIDOCAINE HCL 1%, 10 MG/ML (20ML VIAL) ONE (16:16)
--- NOTE | 2018-05-22 17:02 | PN ---
Progress Note, Physician History of Present Illness: for OR today - Current Medication List Current Medications: Active Medications Amlodipine Besylate (Norvasc -) 5 mg PO DAILY [facility] Last Admin: 05/22/18 09:48 Dose: 5 mg Aspirin (Asa -) 81 mg PO DAILY [facility] Last Admin: 05/22/18 09:54 Dose: Not Given Atorvastatin Calcium (Lipitor -) 40 mg PO HS [facility] Last Admin: 05/21/18 22:44 Dose: 40 mg Cholecalciferol (Vitamin D3 -) 2,000 unit PO BID [facility] Last Admin: 05/22/18 09:48 Dose: 2,000 unit Clopidogrel Bisulfate (Plavix -) 75 mg PO DAILY [facility] Last Admin: 05/22/18 09:54 Dose: Not Given Glipizide (Glucotrol Xl -) 10 mg PO ACBK [facility] Last Admin: 05/22/18 06:25 Dose: Not Given Heparin Sodium (Porcine) (Heparin -) 5,000 unit SQ BID [facility] Last Admin: 05/22/18 09:54 Dose: Not Given Piperacillin Sod/Tazobactam (Sod 2.25 gm/ Dextrose) 50 mls @ 100 mls/hr IVPB Q8H-IV [facility]; Protocol Last Admin: 05/22/18 13:58 Dose: 100 mls/hr Insulin Aspart (Novolog Vial Sliding Scale -) 1 vial SQ ACHS [facility]; Protocol Last Admin: 05/22/18 16:34 Dose: Not Given Insulin Detemir (Levemir Vial) 31 units SQ HS [facility] Last Admin: 05/21/18 22:43 Dose: 31 units Metoprolol Tartrate (Lopressor -) 50 mg PO DAILY [facility] Last Admin: 05/22/18 09:53 Dose: 50 mg Tamsulosin HCl (Flomax -) 0.4 mg PO DAILY [facility] Last Admin: 05/22/18 09:53 Dose: 0.4 mg - Objective Vital Signs: Vital Signs Temperature 97.6 F 05/22/18 14:26 Pulse Rate 82 05/22/18 14:26 Respiratory Rate 17 05/22/18 14:26 Blood Pressure 157/73 05/22/18 14:26 O2 Sat by Pulse Oximetry (%) 95 05/22/18 09:00 Constitutional: Yes: No Distress HENT: Yes: Atraumatic Neck: Yes: Supple Cardiovascular: Yes: Regular Rate and Rhythm Respiratory: Yes: CTA Bilaterally Gastrointestinal: Yes: Normal Bowel Sounds Extremities: Yes: Other (left toe cellulitis) Peripheral Pulses WNL: Yes Neurological: Yes: Alert, Oriented Labs: CBC, BMP 05/22/18 05:58 05/22/18 05:58 INR, PTT INR 1.43 (0.83-1.09) H 05/21/18 14:07 Problem List - Problems (1) Wound cellulitis Code(s): L03.90 - CELLULITIS, UNSPECIFIED (2) Cellulitis and abscess of foot Code(s): L03.119 - CELLULITIS OF UNSPECIFIED PART OF LIMB; L02.619 - CUTANEOUS ABSCESS OF UNSPECIFIED FOOT (3) Diabetic toe ulcer Code(s): E11.621 - TYPE 2 DIABETES MELLITUS WITH FOOT ULCER; L97.509 - NON- PRESSURE CHRONIC ULCER OTH PRT UNSP FOOT W UNSP SEVERITY
--- NOTE | 2018-05-22 17:03 | CONSULT ---
Consult Reason for Consultation:: 67 year old man with DM, neuropathy who presents with necrotic left 1st toe. He states his toe has had a wound for over 2 weeks which he has been treating at home with soaks. For 3 days the toe has been black with foul odored drainage. He has had several toes amputated from the right foot in the past. - History Source History Provided By: Patient - Past Medical History Cardio/Vascular: Yes: HTN, Hyperlipdemia Infectious Disease: Yes: Other. No: AIDS, C-Diff, Herpes Zoster, HIV, MRSA, STD 's, Tuberculosis, VREF Endocrine: Yes: Diabetes Mellitus Additional Medical History: osteomyelitis of left toe - Past Surgical History Past Surgical History: Yes: None. No: AAA Repair, AICD, Amputation, Appendectomy, Arthrosocopy, AV Fistula/Graft, Bariatric Surgery, Breast Biopsy, Bypass, CABG, Carotid Endarterectomy, Cataract Removal, Cholecystectomy, Colectomy, Colonoscopy, Colostomy, Craniotomy, , Cystectomy, Hernia Repair, Hysterectomy, Ileal Conduit, Ileosotomy, Joint Replacement, Kidney Transplant, Laminectomy, Liver Transplant, Mastectomy, Nephrectomy, Oopherectomy , Orchiectomy, Permanent Pacemaker, Prostatectomy, Splenectomy, Stent, Thoracotomy, TURP, Tonsillectomy, Tubal Ligation, Upper Endoscopy, Valve Replacement, Vasectomy, Vein Stripping/Ligation - Alcohol/Substance Use Hx Alcohol Use: No - Smoking History Smoking history: Never smoked Have you smoked in the past 12 months: No Aproximately how many cigarettes per day: 0 If you are a former smoker, when did you quit?: 45 yrs ago - Social History Usual Living Arrangement: Alone ADL: Independent History of Recent Travel: No Home Medications - Allergies Allergies/Adverse Reactions: Allergies Allergy/AdvReac Type Severity Reaction Status Date / Time No Known Allergies Allergy Verified 05/21/18 13:12 - Home Medications Home Medications: Ambulatory Orders Amlodipine Besylate [Norvasc -] 5 mg PO DAILY 08/04/14 Aspirin [ASA -] 81 mg PO DAILY 08/04/14 Atorvastatin Ca [Lipitor] 40 mg PO HS 08/04/14 Clopidogrel Bisulfate [Plavix -] 75 mg PO DAILY 08/04/14 Ergocalciferol [Vitamin D2] 2,000 unit PO BID 08/04/14 Glipizide [Glipizide ER] 10 mg PO DAILY 08/04/14 Insulin Aspart [Novolog Flexpen] 0 unit SQ BIDAC 08/04/14 Metoprolol Tartrate [Lopressor -] 50 mg PO DAILY 08/04/14 Tamsulosin HCl [Flomax -] 0.4 mg PO DAILY 08/04/14 Insulin Glargine,Hum.rec.anlog [Basaglar Kwikpen U-100] 31 unit SQ HS 05/21/18 Family Disease History - Family Disease History Family Disease History: Diabetes: Mother Physical Exam Vital Signs: Vital Signs Temperature 97.6 F 05/22/18 14:26 Pulse Rate 82 05/22/18 14:26 Respiratory Rate 17 05/22/18 14:26 Blood Pressure 157/73 05/22/18 14:26 O2 Sat by Pulse Oximetry (%) 95 05/22/18 09:00 Constitutional: Yes: Obese Extremities: Yes: Other (Left 1st toe necrotic eschar and subQ at base. No crepitance in mid foot.) Edema: Yes Edema: LLE: 3+, RLE: 3+ Peripheral Pulses WNL: Yes (palpable fem and pop) Labs: CBC, BMP 05/22/18 05:58 05/22/18 05:58 Problem List - Problems (1) Gangrene of toe of left foot Assessment/Plan: Will need open amputation today. Code(s): I96 - GANGRENE, NOT ELSEWHERE CLASSIFIED
[2018-05-22] MEDS ORDERED: MIDAZOLAM HCL 2 MG/2 ML SINGLE DOSE VIAL ONE (17:15)
[2018-05-22] MEDS ORDERED: PROPOFOL 20 ML ONE (17:34)
--- NOTE | 2018-05-22 18:07 | OP ---
Operative Note - Note: Operative Date: 05/22/18 Pre-Operative Diagnosis: Gangrene left 1st toe Operation: Open ray amputation left 1st toe Findings: Necrotic subQ and periosteum up to distal 1st metatarsal Post-Operative Diagnosis: Same as Pre-op Surgeon: Alok Nelson Anesthesiologist/[employer] PROFESSOR: Daniela Byers Anesthesia: Fractional Specimens Removed: Left 1st ray and toe Estimated Blood Loss (mls): 25
[2018-05-22] MEDS ORDERED: ONDANSETRON 4 MG/2 ML VIAL IVPUSH PRN (18:12)
[2018-05-22] MEDS ORDERED: LACTATED RINGERS SOLUTION 1,000 ML IV SCH (18:15)
--- NOTE | 2018-05-22 19:32 | CONSULT ---
Consult - text type - Consultation Consultation Note: Came in to see Patient. was in or having toe procedure spoke to attending asked me to see tomorrow if anything else needed. Dr. Nelson doing toe procedure.
[2018-05-22] MEDS ORDERED: INSULIN (NOVOLOG) ASPART 100 UNITS/ML 10ML VIAL ONE (21:05)
[2018-05-22] MEDS: CHOLECALCIFEROL (VITAMIN D3) 1,000 UNIT TABLET (FP) PO SCH (21:17)
[2018-05-22] MEDS: ATORVASTATIN CA 40 MG TABLET (FP) PO SCH (21:18)
[2018-05-22] MEDS ORDERED: INSULIN (LEVEMIR) 100 UNITS/ML UNITS SQ SCH (22:00)
[2018-05-23] MEDS ORDERED: DEXTROSE 5%-WATER - 50 ML IVPB ONE ×3 (01:15→16:50)
[2018-05-23] MEDS ORDERED: PIPERACILLIN/TAZOBACTAM 2.25 GM VIAL IVPB ONE ×3 (01:15→16:50)
[2018-05-23] MEDS: PIPERACILLIN/TAZOB 2.25 GM 2.25 GM in DEXTROSE 5%-WATER - 50 ML IVPB SCH ×3 (01:18→17:08)
[2018-05-23] MEDS ORDERED: PT OWN MED DRAWER 7, Y5N ONE (05:51)
[2018-05-23] MEDS: INSULIN SLIDING SCALE (NOVOLOG) 1 VIAL SQ SCH ×4 (06:22→22:48)
[2018-05-23] MEDS: glipiZIDE-XL 10 MG TAB.ER.24 (FP) PO SCH (06:22)
[2018-05-23 06:52] LABS: BASO % 0.7 % (0-2.0); EOS % 0.7 % (0-4.5); HEMOGLOBIN 12.8 GM/dL (11.7-16.9); LYMPH % 7.6 % (8-40); MCH 29.2 pg (25.7-33.7); MCHC 34.7 g/dl (32.0-35.9); MEAN CELL VOLUME 84.2 fl (80-96); MEAN PLT VOLUME 9.1 fl (7.5-11.1); MONO % 6.7 % (3.8-10.2); NEUT % 84.3 % (42.8-82.8); PLATELET COUNT 279 K/MM3 (134-434); RBC 4.39 M/mm3 (4.00-5.60); WHITE BLOOD COUNT 11.9 K/mm3 (4.0-10.0)
[2018-05-23] MEDS: TAMSULOSIN HCL 0.4 MG CAP PO SCH (09:12)
[2018-05-23] MEDS: amLODIPine BESYLATE 5 MG TABLET (FP) PO SCH (10:03)
[2018-05-23] MEDS: CHOLECALCIFEROL (VITAMIN D3) 1,000 UNIT TABLET (FP) PO SCH ×2 (10:03→22:49)
[2018-05-23] MEDS: ASPIRIN 81 MG CHEWABLE TABLETS PO SCH (10:03)
[2018-05-23] MEDS: CLOPIDOGREL BISULFATE 75 MG TABLET (FP) PO SCH (10:03)
[2018-05-23] MEDS: METOPROLOL TARTRATE 50 MG TABLET (FP) PO SCH (10:04)
[2018-05-23] MEDS: HEPARIN NA (PORCINE) 5,000 UNITS/ML 1ML VIAL SQ SCH ×2 (10:05→22:48)
--- NOTE | 2018-05-23 11:02 | CONSULT ---
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 Pt states the toe has been worsening with spreading infection, redness and warmth up into the left calf with bloody drainage malodorous. Pt reports applying cream and soaking his toe for 2 hours last week and noted a progression in the infection since then. Pt admits to decreased appetite (no oral intake since Tuesday, only drinking water) generalized weakness and an episode of watery stool last night but denies F/C/N/V, CP, SOB, changes in bowel or bladder habits. Pt has not been doing BGM at home. C/O numbness of feet. - History Source History Provided By: Patient, Medical Record - Past Medical History Cardio/Vascular: Yes: HTN, Hyperlipdemia Infectious Disease: Yes: Other. No: AIDS, C-Diff, Herpes Zoster, HIV, MRSA, STD 's, Tuberculosis, VREF Endocrine: Yes: Diabetes Mellitus Additional Medical History: osteomyelitis of left toe - Past Surgical History Past Surgical History: Yes: None. No: AAA Repair, AICD, Amputation, Appendectomy, Arthrosocopy, AV Fistula/Graft, Bariatric Surgery, Breast Biopsy, Bypass, CABG, Carotid Endarterectomy, Cataract Removal, Cholecystectomy, Colectomy, Colonoscopy, Colostomy, Craniotomy, , Cystectomy, Hernia Repair, Hysterectomy, Ileal Conduit, Ileosotomy, Joint Replacement, Kidney Transplant, Laminectomy, Liver Transplant, Mastectomy, Nephrectomy, Oopherectomy , Orchiectomy, Permanent Pacemaker, Prostatectomy, Splenectomy, Stent, Thoracotomy, TURP, Tonsillectomy, Tubal Ligation, Upper Endoscopy, Valve Replacement, Vasectomy, Vein Stripping/Ligation - Alcohol/Substance Use Hx Alcohol Use: No - Smoking History Smoking history: Never smoked Have you smoked in the past 12 months: No Aproximately how many cigarettes per day: 0 If you are a former smoker, when did you quit?: 45 yrs ago - Social History Usual Living Arrangement: Alone ADL: Independent History of Recent Travel: No Home Medications - Allergies Allergies/Adverse Reactions: Allergies Allergy/AdvReac Type Severity Reaction Status Date / Time No Known Allergies Allergy Verified 05/21/18 13:12 - Home Medications Home Medications: Ambulatory Orders Amlodipine Besylate [Norvasc -] 5 mg PO DAILY 08/04/14 Aspirin [ASA -] 81 mg PO DAILY 08/04/14 Atorvastatin Ca [Lipitor] 40 mg PO HS 08/04/14 Clopidogrel Bisulfate [Plavix -] 75 mg PO DAILY 08/04/14 Ergocalciferol [Vitamin D2] 2,000 unit PO BID 08/04/14 Glipizide [Glipizide ER] 10 mg PO DAILY 08/04/14 Insulin Aspart [Novolog Flexpen] 0 unit SQ BIDAC 08/04/14 Metoprolol Tartrate [Lopressor -] 50 mg PO DAILY 08/04/14 Tamsulosin HCl [Flomax -] 0.4 mg PO DAILY 08/04/14 Insulin Glargine,Hum.rec.anlog [Basaglar Kwikpen U-100] 31 unit SQ HS 05/21/18 Family Disease History - Family Disease History Family Disease History: Diabetes: Mother Review of Systems - Review of Systems Constitutional: reports: Loss of Appetite Eyes: reports: No Symptoms HENT: reports: No Symptoms Neck: reports: No Symptoms Cardiovascular: reports: No Symptoms Respiratory: reports: No Symptoms Gastrointestinal: reports: No Symptoms Genitourinary: reports: No Symptoms Musculoskeletal: reports: No Symptoms Neurological: reports: No Symptoms Endocrine: reports: No Symptoms Physical Exam Vital Signs: Vital Signs Temperature 98.1 F 05/23/18 09:13 Pulse Rate 72 05/23/18 09:13 Respiratory Rate 20 05/23/18 09:13 Blood Pressure 155/82 05/23/18 09:13 O2 Sat by Pulse Oximetry (%) 96 05/22/18 21:00 Constitutional: Yes: No Distress, Calm Eyes: Yes: Conjunctiva Clear, EOM Intact HENT: Yes: Atraumatic, Normocephalic Neck: Yes: Supple, Trachea Midline Cardiovascular: Yes: Regular Rate and Rhythm Respiratory: Yes: Regular, CTA Bilaterally Gastrointestinal: Yes: Normal Bowel Sounds, Soft Musculoskeletal: Yes: WNL Extremities: Yes: Amputation, Other (dressing left foot) Wound/Incision: Yes: Dressing Dry and Intact Neurological: Yes: Alert, Oriented Labs: CBC, BMP 05/23/18 06:20 05/22/18 05:58 Assessment/Plan AP; T2DM uncontrolled S/P Amputation left big toe for infection HTN HLD Nutrition consult BGM Q ACHS Levemir Novolog SS coverage Discussed need for adherence to medication and diet Will f/u
--- NOTE | 2018-05-23 11:06 | PN ---
Progress Note (short form) - Note Progress Note: Post op day#1.S/P Amputation of left 1st toe under MAC uneventful.Patient stable.No any anesthesia related problem.Patient Dc from the anesthesia care.
[2018-05-23] MEDS ORDERED: INSULIN (NOVOLOG) ASPART 100 UNITS/ML 10ML VIAL ONE (11:30)
[2018-05-23] MEDS: SODIUM HYPOCHLORITE 0.25%- 473 ML BULK BOTTLE TP SCH ×2 (14:02→23:00)
--- NOTE | 2018-05-23 17:22 | PN ---
Progress Note, Physician History of Present Illness: stable - Current Medication List Current Medications: Active Medications Amlodipine Besylate (Norvasc -) 5 mg PO DAILY [facility] Last Admin: 05/23/18 10:03 Dose: 5 mg Aspirin (Asa -) 81 mg PO DAILY [facility] Last Admin: 05/23/18 10:03 Dose: 81 mg Atorvastatin Calcium (Lipitor -) 40 mg PO HS [facility] Last Admin: 05/22/18 21:18 Dose: 40 mg Cholecalciferol (Vitamin D3 -) 2,000 unit PO BID [facility] Last Admin: 05/23/18 10:03 Dose: 2,000 unit Clopidogrel Bisulfate (Plavix -) 75 mg PO DAILY [facility] Last Admin: 05/23/18 10:03 Dose: 75 mg Glipizide (Glucotrol Xl -) 10 mg PO ACBK [facility] Last Admin: 05/23/18 06:22 Dose: 10 mg Heparin Sodium (Porcine) (Heparin -) 5,000 unit SQ BID [facility] Last Admin: 05/23/18 10:05 Dose: 5,000 unit Lactated Ringer's (Lactated Ringers Solution) 1,000 mls @ 75 mls/hr IV ASDIR [facility] Last Admin: 05/23/18 06:23 Dose: Not Given Piperacillin Sod/Tazobactam (Sod 2.25 gm/ Dextrose) 50 mls @ 100 mls/hr IVPB Q8H-IV [facility]; Protocol Last Admin: 05/23/18 17:08 Dose: 100 mls/hr Insulin Aspart (Novolog Vial Sliding Scale -) 1 vial SQ [facility]; Protocol Last Admin: 05/23/18 16:13 Dose: Not Given Insulin Detemir (Levemir Vial) 31 units SQ [facility] Last Admin: 05/22/18 21:18 Dose: 31 units Metoprolol Tartrate (Lopressor -) 50 mg PO DAILY [facility] Last Admin: 05/23/18 10:04 Dose: 50 mg Sodium Hypochlorite (Dakin's Solution 0.25% (Half-Strength) -) 1 applic TP BID [facility] Last Admin: 05/23/18 14:02 Dose: 1 applic Tamsulosin HCl (Flomax -) 0.4 mg PO DAILY@0830 [facility] Last Admin: 05/23/18 09:12 Dose: 0.4 mg - Objective Vital Signs: Vital Signs Temperature 97.8 F 05/23/18 14:53 Pulse Rate 78 05/23/18 14:53 Respiratory Rate 19 05/23/18 14:53 Blood Pressure 139/89 05/23/18 14:53 O2 Sat by Pulse Oximetry (%) 94 L 05/23/18 09:00 Constitutional: Yes: No Distress HENT: Yes: Atraumatic Neck: Yes: Supple Cardiovascular: Yes: Regular Rate and Rhythm Respiratory: Yes: CTA Bilaterally Gastrointestinal: Yes: Normal Bowel Sounds Extremities: Yes: Other (left foot in dressing) Neurological: Yes: Alert, Oriented Labs: CBC, BMP 05/23/18 06:20 05/22/18 05:58 INR, PTT INR 1.43 (0.83-1.09) H 05/21/18 14:07 Problem List - Problems (1) Wound cellulitis Code(s): L03.90 - CELLULITIS, UNSPECIFIED (2) Cellulitis and abscess of foot Code(s): L03.119 - CELLULITIS OF UNSPECIFIED PART OF LIMB; L02.619 - CUTANEOUS ABSCESS OF UNSPECIFIED FOOT (3) Diabetic toe ulcer Assessment/Plan: s/p left big toe amputation..pod #1 Code(s): E11.621 - TYPE 2 DIABETES MELLITUS WITH FOOT ULCER; L97.509 - NON- PRESSURE CHRONIC ULCER OTH PRT UNSP FOOT W UNSP SEVERITY (4) HTN (hypertension) Code(s): I10 - ESSENTIAL (PRIMARY) HYPERTENSION (5) Gangrene of toe of left foot Code(s): I96 - GANGRENE, NOT ELSEWHERE CLASSIFIED (6) CHF (congestive heart failure) Code(s): I50.9 - HEART FAILURE, UNSPECIFIED
--- NOTE | 2018-05-23 18:14 | PN ---
Progress Note, Physician History of Present Illness: post op doing well dressing in place - Current Medication List Current Medications: Active Medications Amlodipine Besylate (Norvasc -) 5 mg PO DAILY [facility] Last Admin: 05/23/18 10:03 Dose: 5 mg Aspirin (Asa -) 81 mg PO DAILY [facility] Last Admin: 05/23/18 10:03 Dose: 81 mg Atorvastatin Calcium (Lipitor -) 40 mg PO HS [facility] Last Admin: 05/22/18 21:18 Dose: 40 mg Cholecalciferol (Vitamin D3 -) 2,000 unit PO BID [facility] Last Admin: 05/23/18 10:03 Dose: 2,000 unit Clopidogrel Bisulfate (Plavix -) 75 mg PO DAILY [facility] Last Admin: 05/23/18 10:03 Dose: 75 mg Glipizide (Glucotrol Xl -) 10 mg PO ACBK [facility] Last Admin: 05/23/18 06:22 Dose: 10 mg Heparin Sodium (Porcine) (Heparin -) 5,000 unit SQ BID [facility] Last Admin: 05/23/18 10:05 Dose: 5,000 unit Piperacillin Sod/Tazobactam (Sod 2.25 gm/ Dextrose) 50 mls @ 100 mls/hr IVPB Q8H-IV [facility]; Protocol Last Admin: 05/23/18 17:08 Dose: 100 mls/hr Insulin Aspart (Novolog Vial Sliding Scale -) 1 vial SQ HS [facility]; Protocol Insulin Aspart (Novolog Vial Sliding Scale -) 1 vial SQ TIDAC [facility]; Protocol Insulin Detemir (Levemir Vial) 26 units SQ HS [facility] Metoprolol Tartrate (Lopressor -) 50 mg PO DAILY [facility] Last Admin: 05/23/18 10:04 Dose: 50 mg Sodium Hypochlorite (Dakin's Solution 0.25% (Half-Strength) -) 1 applic TP BID [facility] Last Admin: 05/23/18 14:02 Dose: 1 applic Tamsulosin HCl (Flomax -) 0.4 mg PO DAILY@0830 [facility] Last Admin: 05/23/18 09:12 Dose: 0.4 mg - Objective Vital Signs: Vital Signs Temperature 98.8 F 05/23/18 18:08 Pulse Rate 71 05/23/18 18:08 Respiratory Rate 18 05/23/18 18:08 Blood Pressure 135/88 05/23/18 18:08 O2 Sat by Pulse Oximetry (%) 94 L 05/23/18 09:00 Constitutional: Yes: No Distress, Calm, Obese Cardiovascular: Yes: S1, S2 Respiratory: Yes: Regular, CTA Bilaterally Gastrointestinal: Yes: Normal Bowel Sounds, Soft Musculoskeletal: Yes: WNL Extremities: Yes: Other Wound/Incision: Yes: Dressing Dry and Intact Neurological: Yes: Alert, Oriented Psychiatric: Yes: Alert, Oriented Labs: CBC, BMP 05/23/18 06:20 05/22/18 05:58 INR, PTT INR 1.43 (0.83-1.09) H 05/21/18 14:07 Assessment/Plan Problem List - Problems (1) Wound cellulitis Code(s): L03.90 - CELLULITIS, UNSPECIFIED (2) Cellulitis and abscess of foot Code(s): L03.119 - CELLULITIS OF UNSPECIFIED PART OF LIMB; L02.619 - CUTANEOUS ABSCESS OF UNSPECIFIED FOOT (3) Diabetic toe ulcer Code(s): E11.621 - TYPE 2 DIABETES MELLITUS WITH FOOT ULCER; L97.509 - NON- PRESSURE CHRONIC ULCER OTH PRT UNSP FOOT W UNSP SEVERITY plan continue abx await for all cx reports plan for wound vac rest as per the team
[2018-05-23] MEDS: ATORVASTATIN CA 40 MG TABLET (FP) PO SCH (22:49)
[2018-05-23] MEDS: INSULIN (LEVEMIR) 100 UNITS/ML UNITS SQ SCH (22:50)
[2018-05-24] MEDS ORDERED: DEXTROSE 5%-WATER - 50 ML IVPB ONE ×3 (02:19→17:42)
[2018-05-24] MEDS ORDERED: PIPERACILLIN/TAZOBACTAM 2.25 GM VIAL IVPB ONE ×3 (02:19→17:41)
[2018-05-24] MEDS: PIPERACILLIN/TAZOB 2.25 GM 2.25 GM in DEXTROSE 5%-WATER - 50 ML IVPB SCH ×3 (02:28→17:48)
[2018-05-24] MEDS: INSULIN SLIDING SCALE (NOVOLOG) 1 VIAL SQ SCH ×4 (06:48→22:50)
[2018-05-24] MEDS: glipiZIDE-XL 10 MG TAB.ER.24 (FP) PO SCH (06:49)
[2018-05-24] MEDS: SODIUM HYPOCHLORITE 0.25%- 473 ML BULK BOTTLE TP SCH ×2 (08:30→22:52)
--- NOTE | 2018-05-24 09:06 | PN ---
Progress Note (short form) - Note Progress Note: POD 2, s/p Open ray amputation left 1st toe for wet gangrene Pt seen and examined. States he is feeling well. Has been oob without issue. Tolerating PO, voiding without issue. Denies cp/sob, n/v/d, calf pain/edema. Vital Signs Temp 98.1 F 05/24/18 06:00 Pulse 81 05/24/18 06:00 Resp 18 05/24/18 06:00 BP 159/98 05/24/18 06:00 Pulse Ox 95 05/23/18 21:00 Intake & Output 05/23/18 05/23/18 05/24/18 11:59 23:59 11:59 Intake Total 50 500 450 Output Total 700 900 Balance -650 500 -450 Weight 316 lb Intake: IVPB 50 100 100 Oral 400 350 Output: Urine 700 900 Void 700 900 Other: Voiding Method Urinal Urinal Bowel Movement Yes Yes Yes # Bowel Movements 2 2 1 Height 6 ft 2 in Body Mass Index (BMI) 40.6 CBC, BMP 05/23/18 06:20 05/22/18 05:58 Gen: awake, alert, nad. Sitting in chair, ambulated to bed without issue. Resp: unlabored Ext: Left great toe amp wound bed with moderate fibrinous exudate, no purulent drainage expressed from dorsal or plantar surface of foot. Medial edge of wound necrotic. Scant serous drainage from wound bed. Mild erythema to mid calf. Mild ttp with dressing change. A/P: 67 y/o M w/ PMHx CAD s/p x4 stents, [place] (2014), Bypass (08/14/2014), DM w/ neuropathy, HTN, HLD and prior Hx of Right foot digit infection s/p 2nd/3rd toe amps now admitted 05/21 with Left great toe wet gangrene, s/p Open ray amputation left 1st toe for wet gangrene. -Continue bid dressing changes per order (clean with Dakins solution, pack with Iodoform packing), cover with 4x4 and kerlix -Continue IV abx per ID -Dr Nelson to assess tomorrow for need for further debridement message sent to Dr Nelson
[2018-05-24] MEDS ORDERED: PT OWN MED DRAWER 7, Y5N ONE (10:15)
[2018-05-24] MEDS: ASPIRIN 81 MG CHEWABLE TABLETS PO SCH (10:18)
[2018-05-24] MEDS: amLODIPine BESYLATE 5 MG TABLET (FP) PO SCH (10:19)
[2018-05-24] MEDS: CHOLECALCIFEROL (VITAMIN D3) 1,000 UNIT TABLET (FP) PO SCH ×2 (10:19→22:51)
[2018-05-24] MEDS: TAMSULOSIN HCL 0.4 MG CAP PO SCH (10:19)
[2018-05-24] MEDS: METOPROLOL TARTRATE 50 MG TABLET (FP) PO SCH (10:19)
[2018-05-24] MEDS: CLOPIDOGREL BISULFATE 75 MG TABLET (FP) PO SCH (10:19)
[2018-05-24] MEDS: HEPARIN NA (PORCINE) 5,000 UNITS/ML 1ML VIAL SQ SCH ×2 (10:20→22:52)
[2018-05-24] MEDS ORDERED: INSULIN (NOVOLOG) ASPART 100 UNITS/ML 10ML VIAL ONE (12:00)
--- NOTE | 2018-05-24 14:44 | PN ---
Progress Note, Physician History of Present Illness: stable no complaints dressing in place - Current Medication List Current Medications: Active Medications Amlodipine Besylate (Norvasc -) 5 mg PO DAILY [facility] Last Admin: 05/24/18 10:19 Dose: 5 mg Aspirin (Asa -) 81 mg PO DAILY [facility] Last Admin: 05/24/18 10:18 Dose: 81 mg Atorvastatin Calcium (Lipitor -) 40 mg PO HS [facility] Last Admin: 05/23/18 22:49 Dose: 40 mg Cholecalciferol (Vitamin D3 -) 2,000 unit PO BID [facility] Last Admin: 05/24/18 10:19 Dose: 2,000 unit Clopidogrel Bisulfate (Plavix -) 75 mg PO DAILY [facility] Last Admin: 05/24/18 10:19 Dose: 75 mg Glipizide (Glucotrol Xl -) 10 mg PO ACBK [facility] Last Admin: 05/24/18 06:49 Dose: 10 mg Heparin Sodium (Porcine) (Heparin -) 5,000 unit SQ BID [facility] Last Admin: 05/24/18 10:20 Dose: 5,000 unit Piperacillin Sod/Tazobactam (Sod 2.25 gm/ Dextrose) 50 mls @ 100 mls/hr IVPB Q8H-IV [facility]; Protocol Last Admin: 05/24/18 10:18 Dose: 100 mls/hr Insulin Aspart (Novolog Vial Sliding Scale -) 1 vial SQ HS [facility]; Protocol Last Admin: 05/23/18 22:48 Dose: Not Given Insulin Aspart (Novolog Vial Sliding Scale -) 1 vial SQ TIDAC [facility]; Protocol Last Admin: 05/24/18 12:02 Dose: 6 units Insulin Detemir (Levemir Vial) 26 units SQ [facility] Last Admin: 05/23/18 22:50 Dose: 26 units Metoprolol Tartrate (Lopressor -) 50 mg PO DAILY [facility] Last Admin: 05/24/18 10:19 Dose: 50 mg Sodium Hypochlorite (Dakin's Solution 0.25% (Half-Strength) -) 1 applic TP BID [facility] Last Admin: 05/24/18 08:30 Dose: 1 applic Tamsulosin HCl (Flomax -) 0.4 mg PO DAILY@0830 [facility] Last Admin: 05/24/18 10:19 Dose: 0.4 mg - Objective Vital Signs: Vital Signs Temperature 97.8 F 05/24/18 14:21 Pulse Rate 64 05/24/18 14:21 Respiratory Rate 18 05/24/18 14:21 Blood Pressure 130/77 05/24/18 14:21 O2 Sat by Pulse Oximetry (%) 98 05/24/18 09:00 Constitutional: Yes: No Distress, Calm Cardiovascular: Yes: Regular Rate and Rhythm Respiratory: Yes: Regular, CTA Bilaterally Gastrointestinal: Yes: Normal Bowel Sounds, Soft Musculoskeletal: Yes: WNL Extremities: Yes: Other Wound/Incision: Yes: Dressing Dry and Intact Neurological: Yes: Alert, Oriented Psychiatric: Yes: Alert, Oriented Labs: CBC, BMP 05/23/18 06:20 05/22/18 05:58 INR, PTT INR 1.43 (0.83-1.09) H 05/21/18 14:07 Assessment/Plan Problem List - Problems (1) Wound cellulitis Code(s): L03.90 - CELLULITIS, UNSPECIFIED (2) Cellulitis and abscess of foot Code(s): L03.119 - CELLULITIS OF UNSPECIFIED PART OF LIMB; L02.619 - CUTANEOUS ABSCESS OF UNSPECIFIED FOOT (3) Diabetic toe ulcer Code(s): E11.621 - TYPE 2 DIABETES MELLITUS WITH FOOT ULCER; L97.509 - NON- PRESSURE CHRONIC ULCER OTH PRT UNSP FOOT W UNSP SEVERITY plan is to evaluate the wound tomorrow and decide if he needs further amputation plan continue current abx send cx from the operating room await for final plan rest as per the team
--- NOTE | 2018-05-24 16:31 | PN ---
Progress Note, Physician - Current Medication List Current Medications: Active Medications Amlodipine Besylate (Norvasc -) 5 mg PO DAILY [facility] Last Admin: 05/24/18 10:19 Dose: 5 mg Aspirin (Asa -) 81 mg PO DAILY [facility] Last Admin: 05/24/18 10:18 Dose: 81 mg Atorvastatin Calcium (Lipitor -) 40 mg PO HS [facility] Last Admin: 05/23/18 22:49 Dose: 40 mg Cholecalciferol (Vitamin D3 -) 2,000 unit PO BID [facility] Last Admin: 05/24/18 10:19 Dose: 2,000 unit Clopidogrel Bisulfate (Plavix -) 75 mg PO DAILY [facility] Last Admin: 05/24/18 10:19 Dose: 75 mg Glipizide (Glucotrol Xl -) 10 mg PO ACBK [facility] Last Admin: 05/24/18 06:49 Dose: 10 mg Heparin Sodium (Porcine) (Heparin -) 5,000 unit SQ BID [facility] Last Admin: 05/24/18 10:20 Dose: 5,000 unit Piperacillin Sod/Tazobactam (Sod 2.25 gm/ Dextrose) 50 mls @ 100 mls/hr IVPB Q8H-IV [facility]; Protocol Last Admin: 05/24/18 10:18 Dose: 100 mls/hr Insulin Aspart (Novolog Vial Sliding Scale -) 1 vial SQ HS [facility]; Protocol Last Admin: 05/23/18 22:48 Dose: Not Given Insulin Aspart (Novolog Vial Sliding Scale -) 1 vial SQ TIDAC [facility]; Protocol Last Admin: 05/24/18 12:02 Dose: 6 units Insulin Detemir (Levemir Vial) 26 units SQ [facility] Last Admin: 05/23/18 22:50 Dose: 26 units Metoprolol Tartrate (Lopressor -) 50 mg PO DAILY [facility] Last Admin: 05/24/18 10:19 Dose: 50 mg Sodium Hypochlorite (Dakin's Solution 0.25% (Half-Strength) -) 1 applic TP BID [facility] Last Admin: 05/24/18 08:30 Dose: 1 applic Tamsulosin HCl (Flomax -) 0.4 mg PO DAILY@0830 [facility] Last Admin: 05/24/18 10:19 Dose: 0.4 mg - Objective Vital Signs: Vital Signs Temperature 97.8 F 05/24/18 14:21 Pulse Rate 64 05/24/18 14:21 Respiratory Rate 18 05/24/18 14:21 Blood Pressure 130/77 05/24/18 14:21 O2 Sat by Pulse Oximetry (%) 98 05/24/18 09:00 HENT: Yes: Atraumatic Neck: Yes: Supple Cardiovascular: Yes: Regular Rate and Rhythm Respiratory: Yes: CTA Bilaterally Gastrointestinal: Yes: Normal Bowel Sounds Extremities: Yes: Other (left foot in dressing) Neurological: Yes: Alert, Oriented Labs: CBC, BMP 05/23/18 06:20 05/22/18 05:58 INR, PTT INR 1.43 (0.83-1.09) H 05/21/18 14:07 Problem List - Problems (1) Wound cellulitis Code(s): L03.90 - CELLULITIS, UNSPECIFIED (2) Cellulitis and abscess of foot Code(s): L03.119 - CELLULITIS OF UNSPECIFIED PART OF LIMB; L02.619 - CUTANEOUS ABSCESS OF UNSPECIFIED FOOT (3) Diabetic toe ulcer Code(s): E11.621 - TYPE 2 DIABETES MELLITUS WITH FOOT ULCER; L97.509 - NON- PRESSURE CHRONIC ULCER OTH PRT UNSP FOOT W UNSP SEVERITY (4) HTN (hypertension) Code(s): I10 - ESSENTIAL (PRIMARY) HYPERTENSION (5) Gangrene of toe of left foot Code(s): I96 - GANGRENE, NOT ELSEWHERE CLASSIFIED (6) CHF (congestive heart failure) Code(s): I50.9 - HEART FAILURE, UNSPECIFIED
--- NOTE | 2018-05-24 16:38 | PN ---
Progress Note (short form) - Note Progress Note: Feels better No complaints Vital Signs Period Temp Pulse Resp BP Sys/Alfonso Pulse Ox Last 24 Hr 97.8 F-98.8 F 64-81 18-18 130-159/77-98 95-98 PE: AOx3 Neck: supple, No JVD HEENT: EOMI Lungs: CTA CVS: S1S2 Abd: Benign EXt: Left foot dressing Neuro: No focal deficit CMP Sodium 131 mmol/L (136-145) L 05/22/18 05:58 Potassium 4.1 mmol/L (3.5-5.1) 05/22/18 05:58 Chloride 97 mmol/L (98-107) L 05/22/18 05:58 Carbon Dioxide 25 mmol/L (21-32) 05/22/18 05:58 Anion Gap 9 MMOL/L (8-16) 05/22/18 05:58 BUN 42 mg/dL (7-18) H 05/22/18 05:58 Creatinine 2.2 mg/dL (0.55-1.3) H 05/22/18 05:58 Creat Clearance w eGFR 30.10 (>60) 05/22/18 05:58 POC Glucometer 206 UNITS (80-120) 05/24/18 11:58 Random Glucose 190 mg/dL (74-106) H 05/22/18 05:58 Hemoglobin A1c % 6.1 % (4.2-6.3) 05/21/18 21:10 Lactic Acid 1.8 mmol/L (0.4-2.0) 05/21/18 19:18 Calcium 7.9 mg/dL (8.5-10.1) L 05/22/18 05:58 Total Bilirubin 1.1 mg/dL (0.2-1) H 05/22/18 05:58 AST 43 U/L (15-37) H 05/22/18 05:58 ALT 29 U/L (13-61) 05/22/18 05:58 Alkaline Phosphatase 140 U/L (45-117) H 05/22/18 05:58 Creatine Kinase 408 IU/L (26-308) H 05/21/18 14:07 Creatine Kinase Index 1.4 % (0.0-5.0) 05/21/18 14:07 CK-MB (CK-2) 5.9 ng/mL (0.5-3.6) H 05/21/18 14:07 Troponin I 0.04 ng/ml (0.00-0.05) 05/21/18 14:07 C-Reactive Protein 19.5 MG/DL (0.00-0.3) H 05/21/18 14:07 Total Protein 6.5 g/dl (6.4-8.2) 05/22/18 05:58 Albumin 2.1 g/dl (3.4-5.0) L 05/22/18 05:58 Current Medications Generic Name Dose Route Start Last Admin Trade Name Freq PRN Reason Stop Dose Admin Amlodipine Besylate 5 mg 05/23/18 10:00 05/24/18 10:19 Norvasc - PO 5 mg DAILY [facility] Administration Aspirin 81 mg 05/23/18 10:00 05/24/18 10:18 Asa - PO 81 mg DAILY [facility] Administration Atorvastatin Calcium 40 mg 05/22/18 22:00 05/23/18 22:49 Lipitor - PO 40 mg HS [facility] Administration Cholecalciferol 2,000 unit 05/22/18 22:00 05/24/18 10:19 Vitamin D3 - PO 2,000 unit BID [facility] Administration Clopidogrel Bisulfate 75 mg 05/23/18 10:00 05/24/18 10:19 Plavix - PO 75 mg DAILY [facility] Administration Glipizide 10 mg 05/23/18 07:00 05/24/18 06:49 Glucotrol Xl - PO 10 mg ACBK [facility] Administration Heparin Sodium (Porcine) 5,000 unit 05/22/18 22:00 05/24/18 10:20 Heparin - SQ 5,000 unit BID [facility] Administration Piperacillin Sod/Tazobactam 50 mls @ 100 mls/hr 05/23/18 02:00 05/24/18 10:18 Sod 2.25 gm/ Dextrose IVPB 100 mls/hr Q8H-IV [facility] Administration Protocol Insulin Aspart 1 vial 05/23/18 22:00 05/23/18 22:48 Novolog Vial Sliding Scale - SQ Not Given HS [facility] Protocol Insulin Aspart 1 vial 05/24/18 07:00 05/24/18 12:02 Novolog Vial Sliding Scale - SQ 6 units TIDAC [facility] Administration Protocol Insulin Detemir 26 units 05/23/18 22:00 05/23/18 22:50 Levemir Vial SQ 26 units HS [facility] Administration Metoprolol Tartrate 50 mg 05/23/18 10:00 05/24/18 10:19 Lopressor - PO 50 mg DAILY [facility] Administration Sodium Hypochlorite 1 applic 05/23/18 10:00 05/24/18 08:30 Dakin's Solution 0.25% (Half-Strength) - TP 1 applic BID [facility] Administration Tamsulosin HCl 0.4 mg 05/23/18 08:30 05/24/18 10:19 Flomax - PO 0.4 mg DAILY@0830 [facility] Administration AP; T2DM uncontrolled S/P Amputation left big toe for infection HTN HLD Nutrition consult BGM Q ACHS Levemir 26 units Daily at HS Novolog SS coverage Discussed need for adherence to medication and diet Will f/u
[2018-05-24] MEDS: INSULIN (LEVEMIR) 100 UNITS/ML UNITS SQ SCH (22:50)
[2018-05-24] MEDS: ATORVASTATIN CA 40 MG TABLET (FP) PO SCH (22:51)
[2018-05-25] MEDS ORDERED: PIPERACILLIN/TAZOBACTAM 2.25 GM VIAL IVPB ONE ×3 (00:39→17:09)
[2018-05-25] MEDS ORDERED: DEXTROSE 5%-WATER - 50 ML IVPB ONE ×3 (00:39→17:09)
[2018-05-25] MEDS: PIPERACILLIN/TAZOB 2.25 GM 2.25 GM in DEXTROSE 5%-WATER - 50 ML IVPB SCH ×3 (02:43→17:29)
[2018-05-25] MEDS: glipiZIDE-XL 10 MG TAB.ER.24 (FP) PO SCH (06:07)
[2018-05-25] MEDS: INSULIN SLIDING SCALE (NOVOLOG) 1 VIAL SQ SCH ×4 (06:07→22:31)
[2018-05-25] MEDS: TAMSULOSIN HCL 0.4 MG CAP PO SCH (08:50)
--- NOTE | 2018-05-25 09:16 | PN ---
Progress Note (short form) - Note Progress Note: Feels better No complaints Vital Signs Period Temp Pulse Resp BP Sys/Alfonso Pulse Ox Last 24 Hr 97.5 F-97.8 F 64-72 18-20 130-150/64-91 96-98 PE: AOx3 Neck: supple, No JVD HEENT: EOMI Lungs: CTA CVS: S1S2 Abd: Benign EXt: Left foot dressing Neuro: No focal deficit CMP Sodium 131 mmol/L (136-145) L 05/22/18 05:58 Potassium 4.1 mmol/L (3.5-5.1) 05/22/18 05:58 Chloride 97 mmol/L (98-107) L 05/22/18 05:58 Carbon Dioxide 25 mmol/L (21-32) 05/22/18 05:58 Anion Gap 9 MMOL/L (8-16) 05/22/18 05:58 BUN 42 mg/dL (7-18) H 05/22/18 05:58 Creatinine 2.2 mg/dL (0.55-1.3) H 05/22/18 05:58 Creat Clearance w eGFR 30.10 (>60) 05/22/18 05:58 POC Glucometer 196 UNITS (80-120) 05/25/18 11:36 Random Glucose 190 mg/dL (74-106) H 05/22/18 05:58 Hemoglobin A1c % 6.1 % (4.2-6.3) 05/21/18 21:10 Lactic Acid 1.8 mmol/L (0.4-2.0) 05/21/18 19:18 Calcium 7.9 mg/dL (8.5-10.1) L 05/22/18 05:58 Total Bilirubin 1.1 mg/dL (0.2-1) H 05/22/18 05:58 AST 43 U/L (15-37) H 05/22/18 05:58 ALT 29 U/L (13-61) 05/22/18 05:58 Alkaline Phosphatase 140 U/L (45-117) H 05/22/18 05:58 Creatine Kinase 408 IU/L (26-308) H 05/21/18 14:07 Creatine Kinase Index 1.4 % (0.0-5.0) 05/21/18 14:07 CK-MB (CK-2) 5.9 ng/mL (0.5-3.6) H 05/21/18 14:07 Troponin I 0.04 ng/ml (0.00-0.05) 05/21/18 14:07 C-Reactive Protein 19.5 MG/DL (0.00-0.3) H 05/21/18 14:07 Total Protein 6.5 g/dl (6.4-8.2) 05/22/18 05:58 Albumin 2.1 g/dl (3.4-5.0) L 05/22/18 05:58 Current Medications Generic Name Dose Route Start Last Admin Trade Name Freq PRN Reason Stop Dose Admin Amlodipine Besylate 5 mg 05/23/18 10:00 05/25/18 09:50 Norvasc - PO 5 mg DAILY TONNY Administration Aspirin 81 mg 05/23/18 10:00 05/25/18 09:50 Asa - PO 81 mg DAILY TONNY Administration Atorvastatin Calcium 40 mg 05/22/18 22:00 05/24/18 22:51 Lipitor - PO 40 mg HS TONNY Administration Cholecalciferol 2,000 unit 05/22/18 22:00 05/25/18 09:50 Vitamin D3 - PO 2,000 unit BID TONNY Administration Clopidogrel Bisulfate 75 mg 05/23/18 10:00 05/25/18 09:50 Plavix - PO 75 mg DAILY TONNY Administration Glipizide 10 mg 05/23/18 07:00 05/25/18 06:07 Glucotrol Xl - PO 10 mg ACBK TONNY Administration Heparin Sodium (Porcine) 5,000 unit 05/22/18 22:00 05/25/18 09:51 Heparin - SQ 5,000 unit BID TONNY Administration Piperacillin Sod/Tazobactam 50 mls @ 100 mls/hr 05/23/18 02:00 05/25/18 09:51 Sod 2.25 gm/ Dextrose IVPB 100 mls/hr Q8H-IV TONNY Administration Protocol Insulin Aspart 1 vial 05/23/18 22:00 05/24/18 22:50 Novolog Vial Sliding Scale - SQ Not Given HS TONNY Protocol Insulin Aspart 1 vial 05/24/18 07:00 05/25/18 11:38 Novolog Vial Sliding Scale - SQ 4 units TIDAC TONNY Administration Protocol Insulin Detemir 26 units 05/23/18 22:00 05/24/18 22:50 Levemir Vial SQ 26 units HS TONNY Administration Metoprolol Tartrate 50 mg 05/23/18 10:00 05/25/18 09:50 Lopressor - PO 50 mg DAILY TONNY Administration Sodium Hypochlorite 1 applic 05/23/18 10:00 05/24/18 22:52 Dakin's Solution 0.25% (Half-Strength) - TP 1 applic BID TONNY Administration Tamsulosin HCl 0.4 mg 05/23/18 08:30 05/25/18 08:50 Flomax - PO 0.4 mg DAILY@0830 TONNY Administration AP; T2DM uncontrolled S/P Amputation left big toe for infection HTN HLD BGM Q ACHS Increase Levemir 28 units Daily at HS Novolog SS coverage Discussed need for adherence to medication and diet Local wound care IV ABx Will f/u
[2018-05-25] MEDS: METOPROLOL TARTRATE 50 MG TABLET (FP) PO SCH (09:50)
[2018-05-25] MEDS: amLODIPine BESYLATE 5 MG TABLET (FP) PO SCH (09:50)
[2018-05-25] MEDS: ASPIRIN 81 MG CHEWABLE TABLETS PO SCH (09:50)
[2018-05-25] MEDS: CHOLECALCIFEROL (VITAMIN D3) 1,000 UNIT TABLET (FP) PO SCH ×2 (09:50→22:31)
[2018-05-25] MEDS: CLOPIDOGREL BISULFATE 75 MG TABLET (FP) PO SCH (09:50)
[2018-05-25] MEDS: HEPARIN NA (PORCINE) 5,000 UNITS/ML 1ML VIAL SQ SCH ×2 (09:51→22:29)
--- NOTE | 2018-05-25 10:56 | PN ---
Progress Note (short form) - Note Progress Note: pt seen in bed. s/p toe amputation left. right foot examined. s/p multiple toe amputations right. mycotic nails x 3. Recommend foot care q8 weeks by a odiatrist for right foot. left foot as per vascular attending. please re-consult if necessary. No podiatric intervention at this time.
[2018-05-25] MEDS ORDERED: INSULIN (NOVOLOG) ASPART 100 UNITS/ML 10ML VIAL ONE (11:32)
[2018-05-25] MEDS: SODIUM HYPOCHLORITE 0.25%- 473 ML BULK BOTTLE TP SCH ×2 (14:24→22:32)
--- NOTE | 2018-05-25 14:32 | PN ---
Progress Note, Physician History of Present Illness: stable no new issues plan to recheck the wound and decide next step by vascular - Current Medication List Current Medications: Active Medications Amlodipine Besylate (Norvasc -) 5 mg PO DAILY [facility] Last Admin: 05/25/18 09:50 Dose: 5 mg Aspirin (Asa -) 81 mg PO DAILY [facility] Last Admin: 05/25/18 09:50 Dose: 81 mg Atorvastatin Calcium (Lipitor -) 40 mg PO HS [facility] Last Admin: 05/24/18 22:51 Dose: 40 mg Cholecalciferol (Vitamin D3 -) 2,000 unit PO BID [facility] Last Admin: 05/25/18 09:50 Dose: 2,000 unit Clopidogrel Bisulfate (Plavix -) 75 mg PO DAILY [facility] Last Admin: 05/25/18 09:50 Dose: 75 mg Glipizide (Glucotrol Xl -) 10 mg PO ACBK [facility] Last Admin: 05/25/18 06:07 Dose: 10 mg Heparin Sodium (Porcine) (Heparin -) 5,000 unit SQ BID [facility] Last Admin: 05/25/18 09:51 Dose: 5,000 unit Piperacillin Sod/Tazobactam (Sod 2.25 gm/ Dextrose) 50 mls @ 100 mls/hr IVPB Q8H-IV [facility]; Protocol Last Admin: 05/25/18 09:51 Dose: 100 mls/hr Insulin Aspart (Novolog Vial Sliding Scale -) 1 vial SQ [facility]; Protocol Last Admin: 05/24/18 22:50 Dose: Not Given Insulin Aspart (Novolog Vial Sliding Scale -) 1 vial SQ TIDAC [facility]; Protocol Last Admin: 05/25/18 11:38 Dose: 4 units Insulin Detemir (Levemir Vial) 28 units SQ [facility] Metoprolol Tartrate (Lopressor -) 50 mg PO DAILY [facility] Last Admin: 05/25/18 09:50 Dose: 50 mg Sodium Hypochlorite (Dakin's Solution 0.25% (Half-Strength) -) 1 applic TP BID [facility] Last Admin: 05/25/18 14:24 Dose: 1 applic Tamsulosin HCl (Flomax -) 0.4 mg PO DAILY@0830 [facility] Last Admin: 05/25/18 08:50 Dose: 0.4 mg - Objective Vital Signs: Vital Signs Temperature 97.5 F L 05/25/18 07:38 Pulse Rate 72 05/25/18 10:00 Respiratory Rate 18 05/25/18 10:00 Blood Pressure 150/80 05/25/18 10:00 O2 Sat by Pulse Oximetry (%) 96 05/25/18 09:00 Constitutional: Yes: No Distress, Calm, Obese Cardiovascular: Yes: Regular Rate and Rhythm Respiratory: Yes: Regular, CTA Bilaterally Gastrointestinal: Yes: Normal Bowel Sounds, Soft Musculoskeletal: Yes: WNL Extremities: Yes: WNL Neurological: Yes: Alert, Oriented Psychiatric: Yes: Alert, Oriented Labs: CBC, BMP 05/23/18 06:20 05/22/18 05:58 INR, PTT INR 1.43 (0.83-1.09) H 05/21/18 14:07 Assessment/Plan Problem List - Problems (1) Wound cellulitis Code(s): L03.90 - CELLULITIS, UNSPECIFIED (2) Cellulitis and abscess of foot Code(s): L03.119 - CELLULITIS OF UNSPECIFIED PART OF LIMB; L02.619 - CUTANEOUS ABSCESS OF UNSPECIFIED FOOT (3) Diabetic toe ulcer Code(s): E11.621 - TYPE 2 DIABETES MELLITUS WITH FOOT ULCER; L97.509 - NON- PRESSURE CHRONIC ULCER OTH PRT UNSP FOOT W UNSP SEVERITY plan is to evaluate the wound tomorrow and decide if he needs further amputation plan continue current abx send cx from the operating room await for final plan rest as per the team
--- NOTE | 2018-05-25 15:26 | PATH ---
Surgical Pathology Report Patient Name: GILL ZAPATA Med. Rec. #: [id number] /Age/Gender: 1950 (Age: 67) / M Account: [id number] Location: [address] [place] [address]/[facility] Taken: 05/22/2018 Received: 05/23/2018 Reported: 05/25/2018 Physicians: Alok Nelson M.D. PHYSICIAN EMERGENCY DEPT Specimen(s) Received LEFT FIRST TOE AMPUTATION Clinical History Gangrene first left toe Final Diagnosis FIRST TOE, LEFT, AMPUTATION: DIGIT WITH MARKED ACUTE AND CHRONIC GANGRENOUS NECROSIS AND FOCAL ACUTE OSTEOMYELITIS OF UNDERLYING BONE; EXTENDING TO SURGICAL MARGINS. SEPARATE FRAGMENTS OF BONE WITH ACUTE OSTEOMYELITIS. Electronically Signed Miriam Ojeda M.D. Gross Description Received in formalin labeled "left first toe," is a 6.4 x 4.0 x 3.6 cm toe amputation specimen. The entire epidermal surface displays a black-hdez, gangrenous lesion involving the skin and soft tissue margin. The lesion appears to involve the underlying bone. Separately received within the same container is a 4.8 x 3.0 x 2.5 cm additional portion of bone. The separate portion of bone displays smooth trabecular bone at both ends. Physical Aerodynamicist sections are submitted in 5 cassettes as follows: 1-lesion with underlying bone, following decalcification; 2-skin and soft tissue margin; 3-bone margin, following decalcification; [id number] ends from separately received portion of bone, following decalcification. 05/24/201805/24/2018
--- NOTE | 2018-05-25 15:58 | PN ---
Progress Note, Physician - Current Medication List Current Medications: Active Medications Amlodipine Besylate (Norvasc -) 5 mg PO DAILY [facility] Last Admin: 05/25/18 09:50 Dose: 5 mg Aspirin (Asa -) 81 mg PO DAILY [facility] Last Admin: 05/25/18 09:50 Dose: 81 mg Atorvastatin Calcium (Lipitor -) 40 mg PO HS [facility] Last Admin: 05/24/18 22:51 Dose: 40 mg Cholecalciferol (Vitamin D3 -) 2,000 unit PO BID [facility] Last Admin: 05/25/18 09:50 Dose: 2,000 unit Clopidogrel Bisulfate (Plavix -) 75 mg PO DAILY [facility] Last Admin: 05/25/18 09:50 Dose: 75 mg Glipizide (Glucotrol Xl -) 10 mg PO ACBK [facility] Last Admin: 05/25/18 06:07 Dose: 10 mg Heparin Sodium (Porcine) (Heparin -) 5,000 unit SQ BID [facility] Last Admin: 05/25/18 09:51 Dose: 5,000 unit Piperacillin Sod/Tazobactam (Sod 2.25 gm/ Dextrose) 50 mls @ 100 mls/hr IVPB Q8H-IV [facility]; Protocol Last Admin: 05/25/18 09:51 Dose: 100 mls/hr Insulin Aspart (Novolog Vial Sliding Scale -) 1 vial SQ [facility]; Protocol Last Admin: 05/24/18 22:50 Dose: Not Given Insulin Aspart (Novolog Vial Sliding Scale -) 1 vial SQ TIDAC [facility]; Protocol Last Admin: 05/25/18 11:38 Dose: 4 units Insulin Detemir (Levemir Vial) 28 units SQ [facility] Metoprolol Tartrate (Lopressor -) 50 mg PO DAILY [facility] Last Admin: 05/25/18 09:50 Dose: 50 mg Sodium Hypochlorite (Dakin's Solution 0.25% (Half-Strength) -) 1 applic TP BID [facility] Last Admin: 05/25/18 14:24 Dose: 1 applic Tamsulosin HCl (Flomax -) 0.4 mg PO DAILY@0830 [facility] Last Admin: 05/25/18 08:50 Dose: 0.4 mg - Objective Vital Signs: Vital Signs Temperature 97.2 F L 05/25/18 15:12 Pulse Rate 58 L 05/25/18 15:12 Respiratory Rate 18 05/25/18 15:12 Blood Pressure 121/79 05/25/18 15:12 O2 Sat by Pulse Oximetry (%) 96 05/25/18 09:00 Labs: CBC, BMP 05/23/18 06:20 05/22/18 05:58 INR, PTT INR 1.43 (0.83-1.09) H 05/21/18 14:07 Problem List - Problems (1) Wound cellulitis Code(s): L03.90 - CELLULITIS, UNSPECIFIED (2) Cellulitis and abscess of foot Code(s): L03.119 - CELLULITIS OF UNSPECIFIED PART OF LIMB; L02.619 - CUTANEOUS ABSCESS OF UNSPECIFIED FOOT (3) Diabetic toe ulcer Code(s): E11.621 - TYPE 2 DIABETES MELLITUS WITH FOOT ULCER; L97.509 - NON- PRESSURE CHRONIC ULCER OTH PRT UNSP FOOT W UNSP SEVERITY (4) HTN (hypertension) Code(s): I10 - ESSENTIAL (PRIMARY) HYPERTENSION (5) Gangrene of toe of left foot Code(s): I96 - GANGRENE, NOT ELSEWHERE CLASSIFIED (6) CHF (congestive heart failure) Code(s): I50.9 - HEART FAILURE, UNSPECIFIED
--- NOTE | 2018-05-25 21:57 | PN ---
Progress Note (short form) - Note Progress Note: Afebrile. Wound house cleaner supervisor, small amounts of necrotic tissue at base and edge. No pus. WBC dropping Will try VAC dressing. Problem List - Problems (1) Gangrene of toe of left foot Code(s): I96 - GANGRENE, NOT ELSEWHERE CLASSIFIED
[2018-05-25] MEDS ORDERED: INSULIN (LEVEMIR) 100 UNITS/ML UNITS SQ SCH (22:00)
[2018-05-25] MEDS: ATORVASTATIN CA 40 MG TABLET (FP) PO SCH (22:31)
[2018-05-26] MEDS ORDERED: PIPERACILLIN/TAZOBACTAM 2.25 GM VIAL IVPB ONE ×2 (01:41→09:27)
[2018-05-26] MEDS ORDERED: DEXTROSE 5%-WATER - 50 ML IVPB ONE ×2 (01:41→09:27)
[2018-05-26] MEDS: PIPERACILLIN/TAZOB 2.25 GM 2.25 GM in DEXTROSE 5%-WATER - 50 ML IVPB SCH ×2 (02:23→09:45)
[2018-05-26] MEDS: glipiZIDE-XL 10 MG TAB.ER.24 (FP) PO SCH (06:28)
[2018-05-26] MEDS: INSULIN SLIDING SCALE (NOVOLOG) 1 VIAL SQ SCH ×4 (06:29→22:54)
[2018-05-26] MEDS: TAMSULOSIN HCL 0.4 MG CAP PO SCH (08:30)
[2018-05-26] MEDS: HEPARIN NA (PORCINE) 5,000 UNITS/ML 1ML VIAL SQ SCH ×2 (09:44→22:49)
[2018-05-26] MEDS: ASPIRIN 81 MG CHEWABLE TABLETS PO SCH (09:45)
[2018-05-26] MEDS: CHOLECALCIFEROL (VITAMIN D3) 1,000 UNIT TABLET (FP) PO SCH ×2 (09:45→22:49)
[2018-05-26] MEDS: CLOPIDOGREL BISULFATE 75 MG TABLET (FP) PO SCH (09:45)
[2018-05-26] MEDS: METOPROLOL TARTRATE 50 MG TABLET (FP) PO SCH (09:45)
[2018-05-26] MEDS: amLODIPine BESYLATE 5 MG TABLET (FP) PO SCH (09:45)
[2018-05-26] MEDS ORDERED: INSULIN (NOVOLOG) ASPART 100 UNITS/ML 10ML VIAL ONE (11:51)
--- NOTE | 2018-05-26 12:52 | PN ---
Progress Note (short form) - Note Progress Note: Feels better No complaints Vital Signs Period Temp Pulse Resp BP Sys/Alfonso Pulse Ox Last 24 Hr 97.2 F-98.6 F 58-74 18-20 121-166/65-98 97 PE: AOx3 Neck: supple, No JVD HEENT: EOMI Lungs: CTA CVS: S1S2 Abd: Benign EXt: Left foot dressing Neuro: No focal deficit CMP Sodium 131 mmol/L (136-145) L 05/22/18 05:58 Potassium 4.1 mmol/L (3.5-5.1) 05/22/18 05:58 Chloride 97 mmol/L (98-107) L 05/22/18 05:58 Carbon Dioxide 25 mmol/L (21-32) 05/22/18 05:58 Anion Gap 9 MMOL/L (8-16) 05/22/18 05:58 BUN 42 mg/dL (7-18) H 05/22/18 05:58 Creatinine 2.2 mg/dL (0.55-1.3) H 05/22/18 05:58 Creat Clearance w eGFR 30.10 (>60) 05/22/18 05:58 POC Glucometer 235 UNITS (80-120) 05/26/18 11:49 Random Glucose 190 mg/dL (74-106) H 05/22/18 05:58 Hemoglobin A1c % 6.1 % (4.2-6.3) 05/21/18 21:10 Lactic Acid 1.8 mmol/L (0.4-2.0) 05/21/18 19:18 Calcium 7.9 mg/dL (8.5-10.1) L 05/22/18 05:58 Total Bilirubin 1.1 mg/dL (0.2-1) H 05/22/18 05:58 AST 43 U/L (15-37) H 05/22/18 05:58 ALT 29 U/L (13-61) 05/22/18 05:58 Alkaline Phosphatase 140 U/L (45-117) H 05/22/18 05:58 Creatine Kinase 408 IU/L (26-308) H 05/21/18 14:07 Creatine Kinase Index 1.4 % (0.0-5.0) 05/21/18 14:07 CK-MB (CK-2) 5.9 ng/mL (0.5-3.6) H 05/21/18 14:07 Troponin I 0.04 ng/ml (0.00-0.05) 05/21/18 14:07 C-Reactive Protein 19.5 MG/DL (0.00-0.3) H 05/21/18 14:07 Total Protein 6.5 g/dl (6.4-8.2) 05/22/18 05:58 Albumin 2.1 g/dl (3.4-5.0) L 05/22/18 05:58 Current Medications Generic Name Dose Route Start Last Admin Trade Name Freq PRN Reason Stop Dose Admin Amlodipine Besylate 5 mg 05/23/18 10:00 05/26/18 09:45 Norvasc - PO 5 mg DAILY TONNY Administration Aspirin 81 mg 05/23/18 10:00 05/26/18 09:45 Asa - PO 81 mg DAILY TONNY Administration Atorvastatin Calcium 40 mg 05/22/18 22:00 05/25/18 22:31 Lipitor - PO 40 mg HS TONNY Administration Cholecalciferol 2,000 unit 05/22/18 22:00 05/26/18 09:45 Vitamin D3 - PO 2,000 unit BID TONNY Administration Clopidogrel Bisulfate 75 mg 05/23/18 10:00 05/26/18 09:45 Plavix - PO 75 mg DAILY TONNY Administration Glipizide 10 mg 05/23/18 07:00 05/26/18 06:28 Glucotrol Xl - PO 10 mg ACBK TONNY Administration Heparin Sodium (Porcine) 5,000 unit 05/22/18 22:00 05/26/18 09:44 Heparin - SQ 5,000 unit BID TONNY Administration Piperacillin Sod/Tazobactam 50 mls @ 100 mls/hr 05/23/18 02:00 05/26/18 09:45 Sod 2.25 gm/ Dextrose IVPB 100 mls/hr Q8H-IV TONNY Administration Protocol Insulin Aspart 1 vial 05/23/18 22:00 05/25/18 22:31 Novolog Vial Sliding Scale - SQ Not Given HS TONNY Protocol Insulin Aspart 1 vial 05/24/18 07:00 05/26/18 12:05 Novolog Vial Sliding Scale - SQ 6 units TIDAC TONNY Administration Protocol Insulin Detemir 30 units 05/26/18 22:00 Levemir Vial SQ HS [facility] Metoprolol Tartrate 50 mg 05/23/18 10:00 05/26/18 09:45 Lopressor - PO 50 mg DAILY [facility] Administration Sodium Hypochlorite 1 applic 05/23/18 10:00 05/25/18 22:32 Dakin's Solution 0.25% (Half-Strength) - TP Not Given BID [facility] Tamsulosin HCl 0.4 mg 05/23/18 08:30 05/26/18 08:30 Flomax - PO 0.4 mg DAILY@0830 TONNY Administration AP; T2DM uncontrolled S/P Amputation left big toe for infection HTN HLD BGM Q ACHS Increase Levemir 30 units Daily at HS Novolog SS coverage Local wound care IV ABx Will f/u
--- NOTE | 2018-05-26 12:55 | OP ---
DATE OF OPERATION: 05/22/2018 SURGEON: Alok Matthews MD PROCEDURE: Open ray amputation left 1st toe. PREOPERATIVE DIAGNOSIS: Gangrene left 1st toe. POSTOPERATIVE DIAGNOSIS: Gangrene left 1st toe. ANESTHESIA: Fractional. ANESTHESIA: Daniela Byers MD OPERATIVE FINDINGS: There was wet gangrene of the left 1st toe with necrotic subcutaneous tissue extending up onto the dorsum of the foot to the level of the mid metatarsal. OPERATIVE PROCEDURE: Following routine patient identification with site and side verification, intravenous sedation was established. The left foot was prepped with Betadine solution. A time-out was performed. A curving incision was made across the base of the 1st toe and carried into the subcutaneous tissues using cautery for hemostasis. Incision was carried down to the bone of the metatarsal head, and the bone was transected with a bone cutter. The incision was then extended proximally after probing the wound to unroof areas of necrosis. Subcutaneous tissues were further debrided sharply to remove nonviable tissue. The bone was transected again in the level of the mid metatarsal where there was visible necrosis of the periosteal tissues. Additional soft tissue debridement was carried out to remove any nonviable tissue joint capsule tendon, and the wound was then irrigated with dilute peroxide. The wound was packed open with iodoform gauze, and a sterile wrap was applied with Richard bandage. The patient was then taken to the recovery room in stable condition. ALOK MATTHEWS M.D. [id number]
--- NOTE | 2018-05-26 14:52 | PN ---
Progress Note, Physician History of Present Illness: patient stable post amputation plan for wound vac - Current Medication List Current Medications: Active Medications Amlodipine Besylate (Norvasc -) 5 mg PO DAILY [facility] Last Admin: 05/26/18 09:45 Dose: 5 mg Aspirin (Asa -) 81 mg PO DAILY [facility] Last Admin: 05/26/18 09:45 Dose: 81 mg Atorvastatin Calcium (Lipitor -) 40 mg PO HS [facility] Last Admin: 05/25/18 22:31 Dose: 40 mg Cholecalciferol (Vitamin D3 -) 2,000 unit PO BID [facility] Last Admin: 05/26/18 09:45 Dose: 2,000 unit Clopidogrel Bisulfate (Plavix -) 75 mg PO DAILY [facility] Last Admin: 05/26/18 09:45 Dose: 75 mg Glipizide (Glucotrol Xl -) 10 mg PO ACBK [facility] Last Admin: 05/26/18 06:28 Dose: 10 mg Heparin Sodium (Porcine) (Heparin -) 5,000 unit SQ BID [facility] Last Admin: 05/26/18 09:44 Dose: 5,000 unit Piperacillin Sod/Tazobactam (Sod 2.25 gm/ Dextrose) 50 mls @ 100 mls/hr IVPB Q8H-IV [facility]; Protocol Last Admin: 05/26/18 09:45 Dose: 100 mls/hr Insulin Aspart (Novolog Vial Sliding Scale -) 1 vial SQ [facility]; Protocol Last Admin: 05/25/18 22:31 Dose: Not Given Insulin Aspart (Novolog Vial Sliding Scale -) 1 vial SQ TIDAC [facility]; Protocol Last Admin: 05/26/18 12:05 Dose: 6 units Insulin Detemir (Levemir Vial) 30 units SQ [facility] Metoprolol Tartrate (Lopressor -) 50 mg PO DAILY [facility] Last Admin: 05/26/18 09:45 Dose: 50 mg Sodium Hypochlorite (Dakin's Solution 0.25% (Half-Strength) -) 1 applic TP BID [facility] Last Admin: 05/25/18 22:32 Dose: Not Given Tamsulosin HCl (Flomax -) 0.4 mg PO DAILY@0830 [facility] Last Admin: 05/26/18 08:30 Dose: 0.4 mg - Objective Vital Signs: Vital Signs Temperature 98.6 F 05/26/18 09:40 Pulse Rate 74 05/26/18 09:40 Respiratory Rate 05/26/18 09:40 Blood Pressure 138/68 05/26/18 09:40 O2 Sat by Pulse Oximetry (%) 97 05/25/18 21:00 Constitutional: Yes: No Distress, Calm Cardiovascular: Yes: Regular Rate and Rhythm Respiratory: Yes: Regular, CTA Bilaterally Gastrointestinal: Yes: Normal Bowel Sounds, Soft Musculoskeletal: Yes: WNL Extremities: Yes: WNL Wound/Incision: Yes: Dressing Dry and Intact Neurological: Yes: Alert, Oriented Psychiatric: Yes: Alert, Oriented Labs: CBC, BMP 05/23/18 06:20 05/22/18 05:58 INR, PTT INR 1.43 (0.83-1.09) H 05/21/18 14:07 Assessment/Plan Problem List - Problems (1) Wound cellulitis Code(s): L03.90 - CELLULITIS, UNSPECIFIED (2) Cellulitis and abscess of foot Code(s): L03.119 - CELLULITIS OF UNSPECIFIED PART OF LIMB; L02.619 - CUTANEOUS ABSCESS OF UNSPECIFIED FOOT (3) Diabetic toe ulcer Code(s): E11.621 - TYPE 2 DIABETES MELLITUS WITH FOOT ULCER; L97.509 - NON- PRESSURE CHRONIC ULCER OTH PRT UNSP FOOT W UNSP SEVERITY plan is to evaluate the wound tomorrow and decide if he needs further amputation plan abx changed to oral to continue abx for another 10 days wound care rest as per the team
--- NOTE | 2018-05-26 17:08 | PN ---
Progress Note (short form) - Note Progress Note: Surgery Patient seen and examined at bedside with no complaints. Vital Signs Temp 98.0 F 05/26/18 15:42 Pulse 58 L 05/26/18 15:42 Resp 20 05/26/18 15:42 BP 160/89 05/26/18 15:42 Pulse Ox 97 05/25/18 21:00 Intake & Output 05/25/18 05/26/18 05/26/18 23:59 11:59 23:59 Intake Total 700 500 950 Output Total 400 Balance 300 500 950 Intake: IVPB 100 100 Oral 600 400 950 Output: Urine 400 Void 400 Other: Voiding Method Urinal Urinal # Unmeasured Voids Void 1 Bowel Movement Yes No # Bowel Movements 1 A&Ox3, NAD unlabored resp on RA wound clean and intact with well defined boarders, mild ss d/c, no changes from yesterdays exam wound vac applied with white foam/black foam and place on vac setting 100mmhg. No leaks identified. Problem List - Problems (1) 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 Assessment/Plan: Doing well s/p first toe ray amputation. 1) continue wound vac changes M,W,F 2) elevate left LE 3) ABX per ID Code(s): Z89.412 - ACQUIRED ABSENCE OF LEFT GREAT TOE
[2018-05-26] MEDS: AMOX TR/POT CLAV 500MG/125MG TABLETS (FP) PO SCH (17:38)
[2018-05-26] MEDS: SODIUM HYPOCHLORITE 0.25%- 473 ML BULK BOTTLE TP SCH ×2 (17:40→21:03)
--- NOTE | 2018-05-26 19:08 | PN ---
Progress Note, Physician - Current Medication List Current Medications: Active Medications Amlodipine Besylate (Norvasc -) 5 mg PO DAILY [facility] Last Admin: 05/26/18 09:45 Dose: 5 mg Amoxicillin/Clavulanate Potassium (Augmentin - 500mg Tablet) 1 tab PO BID@0800, 1730 [facility] Last Admin: 05/26/18 17:38 Dose: 1 tab Aspirin (Asa -) 81 mg PO DAILY [facility] Last Admin: 05/26/18 09:45 Dose: 81 mg Atorvastatin Calcium (Lipitor -) 40 mg PO HS [facility] Last Admin: 05/25/18 22:31 Dose: 40 mg Cholecalciferol (Vitamin D3 -) 2,000 unit PO BID [facility] Last Admin: 05/26/18 09:45 Dose: 2,000 unit Clopidogrel Bisulfate (Plavix -) 75 mg PO DAILY [facility] Last Admin: 05/26/18 09:45 Dose: 75 mg Glipizide (Glucotrol Xl -) 10 mg PO ACBK [facility] Last Admin: 05/26/18 06:28 Dose: 10 mg Heparin Sodium (Porcine) (Heparin -) 5,000 unit SQ BID [facility] Last Admin: 05/26/18 09:44 Dose: 5,000 unit Insulin Aspart (Novolog Vial Sliding Scale -) 1 vial SQ HS [facility]; Protocol Last Admin: 05/25/18 22:31 Dose: Not Given Insulin Aspart (Novolog Vial Sliding Scale -) 1 vial SQ TIDAC [facility]; Protocol Last Admin: 05/26/18 17:39 Dose: 4 units Insulin Detemir (Levemir Vial) [address] [facility] Metoprolol Tartrate (Lopressor -) 50 mg PO DAILY [facility] Last Admin: 05/26/18 09:45 Dose: 50 mg Sodium Hypochlorite (Dakin's Solution 0.25% (Half-Strength) -) 1 applic TP BID [facility] Last Admin: 05/26/18 17:40 Dose: Not Given Tamsulosin HCl (Flomax -) 0.4 mg PO DAILY@0830 [facility] Last Admin: 05/26/18 08:30 Dose: 0.4 mg - Objective Vital Signs: Vital Signs Temperature 98.0 F 05/26/18 15:42 Pulse Rate 58 L 05/26/18 15:42 Respiratory Rate 20 05/26/18 15:42 Blood Pressure 160/89 05/26/18 15:42 O2 Sat by Pulse Oximetry (%) 97 05/26/18 09:00 Constitutional: Yes: No Distress HENT: Yes: Atraumatic Neck: Yes: Supple Cardiovascular: Yes: Regular Rate and Rhythm Respiratory: Yes: CTA Bilaterally Gastrointestinal: Yes: Normal Bowel Sounds Extremities: Yes: Other (R foot infection...s/p amputation) Neurological: Yes: Alert, Oriented Labs: CBC, BMP 05/23/18 06:20 05/22/18 05:58 INR, PTT INR 1.43 (0.83-1.09) H 05/21/18 14:07 Problem List - Problems (1) Wound cellulitis Code(s): L03.90 - CELLULITIS, UNSPECIFIED (2) Cellulitis and abscess of foot Code(s): L03.119 - CELLULITIS OF UNSPECIFIED PART OF LIMB; L02.619 - CUTANEOUS ABSCESS OF UNSPECIFIED FOOT (3) Diabetic toe ulcer Code(s): E11.621 - TYPE 2 DIABETES MELLITUS WITH FOOT ULCER; L97.509 - NON- PRESSURE CHRONIC ULCER OTH PRT UNSP FOOT W UNSP SEVERITY (4) HTN (hypertension) Code(s): I10 - ESSENTIAL (PRIMARY) HYPERTENSION (5) Gangrene of toe of left foot Code(s): I96 - GANGRENE, NOT ELSEWHERE CLASSIFIED (6) CHF (congestive heart failure) Code(s): I50.9 - HEART FAILURE, UNSPECIFIED
[2018-05-26] MEDS ORDERED: INSULIN (LEVEMIR) 100 UNITS/ML UNITS SQ SCH (22:00)
[2018-05-26] MEDS: ATORVASTATIN CA 40 MG TABLET (FP) PO SCH (22:50)
[2018-05-27] MEDS ORDERED: PT OWN MED DRAWER 7, Y5N ONE ×4 (06:38→10:47)
[2018-05-27] MEDS: glipiZIDE-XL 10 MG TAB.ER.24 (FP) PO SCH (06:44)
[2018-05-27] MEDS: INSULIN SLIDING SCALE (NOVOLOG) 1 VIAL SQ SCH ×4 (06:45→23:25)
[2018-05-27] MEDS: METOPROLOL TARTRATE 50 MG TABLET (FP) PO SCH (09:28)
[2018-05-27] MEDS: CHOLECALCIFEROL (VITAMIN D3) 1,000 UNIT TABLET (FP) PO SCH ×2 (09:28→23:16)
[2018-05-27] MEDS: AMOX TR/POT CLAV 500MG/125MG TABLETS (FP) PO SCH ×2 (09:28→16:57)
[2018-05-27] MEDS: CLOPIDOGREL BISULFATE 75 MG TABLET (FP) PO SCH (09:28)
[2018-05-27] MEDS: TAMSULOSIN HCL 0.4 MG CAP PO SCH (09:28)
[2018-05-27] MEDS: HEPARIN NA (PORCINE) 5,000 UNITS/ML 1ML VIAL SQ SCH ×2 (09:29→23:16)
[2018-05-27] MEDS: ASPIRIN 81 MG CHEWABLE TABLETS PO SCH (09:29)
[2018-05-27] MEDS: amLODIPine BESYLATE 5 MG TABLET (FP) PO SCH (09:29)
[2018-05-27] MEDS: SODIUM HYPOCHLORITE 0.25%- 473 ML BULK BOTTLE TP SCH ×2 (09:29→23:15)
[2018-05-27 09:50] LABS: BASO % 0.8 % (0-2.0); EOS % 1.4 % (0-4.5); HEMATOCRIT 38.9 % (35.4-49); HEMOGLOBIN 13.9 GM/dL (11.7-16.9); LYMPH % 13.7 % (8-40); MCH 29.9 pg (25.7-33.7); MCHC 35.8 g/dl (32.0-35.9); MEAN CELL VOLUME 83.6 fl (80-96); MEAN PLT VOLUME 8.7 fl (7.5-11.1); MONO % 6.2 % (3.8-10.2); NEUT % 77.9 % (42.8-82.8); PLATELET COUNT 303 K/MM3 (134-434); RBC 4.65 M/mm3 (4.00-5.60); RDW 13.8 % (11.9-15.9)
[2018-05-27 10:33] LABS: ALBUMIN 2.1 g/dl (3.4-5.0); ALK PHOS 118 U/L (45-117); ANION GAP 6 MMOL/L (8-16); BILIRUBIN,TOTAL 0.5 mg/dL (0.2-1); BLOOD UREA NITROGEN 26 mg/dL (7-18); CALCIUM 8.5 mg/dL (8.5-10.1); CHLORIDE 101 mmol/L (98-107); CO2 29 mmol/L (21-32); CREATININE 1.7 mg/dL (0.55-1.3); GLUCOSE,RANDOM 149 mg/dL (74-106); POTASSIUM 4.4 mmol/L (3.5-5.1); SGOT/AST 38 U/L (15-37); SGPT/ALT 44 U/L (13-61); SODIUM 137 mmol/L (136-145); TOT PROT 6.9 g/dl (6.4-8.2)
--- NOTE | 2018-05-27 11:04 | PN ---
Progress Note (short form) - Note Progress Note: Feels good Denies any complaints Vital Signs Period Temp Pulse Resp BP Sys/Alfonso Pulse Ox Last 24 Hr 98.0 F-98.3 F 58-73 20-20 146-162/88-100 97 PE: AOx3 Neck: supple, No JVD HEENT: EOMI Lungs: CTA CVS: S1S2 Abd: Benign EXt: Left foot vac dressing Neuro: No focal deficit CMP Sodium 137 mmol/L (136-145) 05/27/18 08:30 Potassium 4.4 mmol/L (3.5-5.1) 05/27/18 08:30 Chloride 101 mmol/L (98-107) 05/27/18 08:30 Carbon Dioxide 29 mmol/L (21-32) 05/27/18 08:30 Anion Gap 6 MMOL/L (8-16) L 05/27/18 08:30 BUN 26 mg/dL (7-18) H 05/27/18 08:30 Creatinine 1.7 mg/dL (0.55-1.3) H 05/27/18 08:30 Creat Clearance w eGFR 40.40 (>60) 05/27/18 08:30 POC Glucometer 182 UNITS (80-120) 05/27/18 06:44 Random Glucose 149 mg/dL (74-106) H 05/27/18 08:30 Hemoglobin A1c % 6.1 % (4.2-6.3) 05/21/18 21:10 Lactic Acid 1.8 mmol/L (0.4-2.0) 05/21/18 19:18 Calcium 8.5 mg/dL (8.5-10.1) 05/27/18 08:30 Total Bilirubin 0.5 mg/dL (0.2-1) 05/27/18 08:30 AST 38 U/L (15-37) H 05/27/18 08:30 ALT 44 U/L (13-61) 05/27/18 08:30 Alkaline Phosphatase 118 U/L (45-117) H 05/27/18 08:30 Creatine Kinase 408 IU/L (26-308) H 05/21/18 14:07 Creatine Kinase Index 1.4 % (0.0-5.0) 05/21/18 14:07 CK-MB (CK-2) 5.9 ng/mL (0.5-3.6) H 05/21/18 14:07 Troponin I 0.04 ng/ml (0.00-0.05) 05/21/18 14:07 C-Reactive Protein 19.5 MG/DL (0.00-0.3) H 05/21/18 14:07 Total Protein 6.9 g/dl (6.4-8.2) 05/27/18 08:30 Albumin 2.1 g/dl (3.4-5.0) L 05/27/18 08:30 Current Medications Generic Name Dose Route Start Last Admin Trade Name Freq PRN Reason Stop Dose Admin Amlodipine Besylate 5 mg 05/23/18 10:00 05/27/18 09:29 Norvasc - PO 5 mg DAILY TONNY Administration Amoxicillin/Clavulanate Potassium 1 tab 05/26/18 17:30 05/27/18 09:28 Augmentin - 500mg Tablet PO 1 tab BID@0800,1730 TONNY Administration Aspirin 81 mg 05/23/18 10:00 05/27/18 09:29 Asa - PO 81 mg DAILY TONNY Administration Atorvastatin Calcium 40 mg 05/22/18 22:00 05/26/18 22:50 Lipitor - PO 40 mg HS TONNY Administration Cholecalciferol 2,000 unit 05/22/18 22:00 05/27/18 09:28 Vitamin D3 - PO 2,000 unit BID TONNY Administration Clopidogrel Bisulfate 75 mg 05/23/18 10:00 05/27/18 09:28 Plavix - PO 75 mg DAILY TONNY Administration Glipizide 10 mg 05/23/18 07:00 05/27/18 06:44 Glucotrol Xl - PO 10 mg ACBK TONNY Administration Heparin Sodium (Porcine) 5,000 unit 05/22/18 22:00 05/27/18 09:29 Heparin - SQ 5,000 unit BID TONNY Administration Insulin Aspart 1 vial 05/23/18 22:00 05/26/18 22:54 Novolog Vial Sliding Scale - SQ Not Given HS TONNY Protocol Insulin Aspart 1 vial 05/24/18 07:00 05/27/18 06:45 Novolog Vial Sliding Scale - SQ 4 units TIDAC TONNY Administration Protocol Insulin Detemir 30 units 05/26/18 22:00 05/26/18 22:50 Levemir Vial SQ 30 units HS TONNY Administration Metoprolol Tartrate 50 mg 05/23/18 10:00 05/27/18 09:28 Lopressor - PO 50 mg DAILY TONNY Administration Sodium Hypochlorite 1 applic 05/23/18 10:00 05/27/18 09:29 Dakin's Solution 0.25% (Half-Strength) - TP Not Given BID ON LICENSE OF [facility] Tamsulosin HCl 0.4 mg 05/23/18 08:30 05/27/18 09:28 Flomax - PO 0.4 mg DAILY@0830 TONNY Administration AP; T2DM uncontrolled S/P Amputation left big toe for infection HTN HLD BGM Q ACHS Increase Levemir 32 units Daily at HS Increase Novolog SS coverage Local wound care Augmentin 500 BID Will f/u
[2018-05-27] MEDS ORDERED: INSULIN (NOVOLOG) ASPART 100 UNITS/ML 10ML VIAL ONE (11:43)
--- NOTE | 2018-05-27 12:25 | PN ---
Progress Note, Physician History of Present Illness: Pt seen and examined and events noted. Pt currently with foot vac on Lt foot surgical site. He has no complaints currently. States he feels well. - Current Medication List Current Medications: Active Medications Amlodipine Besylate (Norvasc -) 5 mg PO DAILY [facility] Last Admin: 05/27/18 09:29 Dose: 5 mg Amoxicillin/Clavulanate Potassium (Augmentin - 500mg Tablet) 1 tab PO BID@0800, 1730 [facility] Last Admin: 05/27/18 09:28 Dose: 1 tab Aspirin (Asa -) 81 mg PO DAILY [facility] Last Admin: 05/27/18 09:29 Dose: 81 mg Atorvastatin Calcium (Lipitor -) 40 mg PO HS [facility] Last Admin: 05/26/18 22:50 Dose: 40 mg Cholecalciferol (Vitamin D3 -) 2,000 unit PO BID [facility] Last Admin: 05/27/18 09:28 Dose: 2,000 unit Clopidogrel Bisulfate (Plavix -) 75 mg PO DAILY [facility] Last Admin: 05/27/18 09:28 Dose: 75 mg Glipizide (Glucotrol Xl -) 10 mg PO ACBK [facility] Last Admin: 05/27/18 06:44 Dose: 10 mg Heparin Sodium (Porcine) (Heparin -) 5,000 unit SQ BID [facility] Last Admin: 05/27/18 09:29 Dose: 5,000 unit Insulin Aspart (Novolog Vial Sliding Scale -) 1 vial SQ [facility]; Protocol Last Admin: 05/26/18 22:54 Dose: Not Given Insulin Aspart (Novolog Vial Sliding Scale -) 1 vial SQ TIDAC [facility]; Protocol Insulin Detemir (Levemir Vial) 32 units SQ [facility] Metoprolol Tartrate (Lopressor -) 50 mg PO DAILY [facility] Last Admin: 05/27/18 09:28 Dose: 50 mg Sodium Hypochlorite (Dakin's Solution 0.25% (Half-Strength) -) 1 applic TP BID [facility] Last Admin: 05/27/18 09:29 Dose: Not Given Tamsulosin HCl (Flomax -) 0.4 mg PO DAILY@0830 [facility] Last Admin: 05/27/18 09:28 Dose: 0.4 mg - Objective Vital Signs: Vital Signs Temperature 98 F 05/27/18 09:00 Pulse Rate 71 05/27/18 09:00 Respiratory Rate 20 05/27/18 09:00 Blood Pressure 160/89 05/27/18 09:00 O2 Sat by Pulse Oximetry (%) 97 05/26/18 21:00 Constitutional: Yes: No Distress, Calm Cardiovascular: Yes: Regular Rate and Rhythm Respiratory: Yes: Regular Gastrointestinal: Yes: Normal Bowel Sounds, Soft Genitourinary: Yes: WNL Extremities: Yes: WNL Wound/Incision: Yes: Other (Lt foot wound vac) Neurological: Yes: Alert, Oriented Labs: CBC, BMP 05/27/18 08:30 05/27/18 08:30 INR, PTT INR 1.43 (0.83-1.09) H 05/21/18 14:07 Microbiology 05/21/18 14:07 Blood - Peripheral Venous Blood Culture - Final NO GROWTH AFTER 5 DAYS INCUBATION 05/21/18 14:07 Blood - Peripheral Venous Blood Culture - Final NO GROWTH AFTER 5 DAYS INCUBATION 05/21/18 16:30 Toe - Left Hallux Gram Stain - Final 05/21/18 16:30 Toe - Left Hallux Wound Culture - Final Staphylococcus Aureus Enterococcus Faecalis 05/23/18 17:30 Stool Clostridium difficile Antigen (RADHA) - Final 05/23/18 17:30 Stool Clostridium difficile Toxin Assay - Final 05/21/18 21:10 Urine - Urine Clean Catch Urine Culture - Final Contaminated: Please Repeat Problem List - Problems (1) Gangrene of toe of left foot Code(s): I96 - GANGRENE, NOT ELSEWHERE CLASSIFIED (2) HTN (hypertension) Code(s): I10 - ESSENTIAL (PRIMARY) HYPERTENSION (3) 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 Code(s): Z89.412 - ACQUIRED ABSENCE OF LEFT GREAT TOE (4) CHF (congestive heart failure) Code(s): I50.9 - HEART FAILURE, UNSPECIFIED (5) Diabetes Code(s): E11.9 - TYPE 2 DIABETES MELLITUS WITHOUT COMPLICATIONS Qualifiers: Diabetes mellitus type: type 1 Diabetes mellitus complication status: with diabetic arthropathy Diabetes mellitus complication detail: with neuropathic arthropathy 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
--- NOTE | 2018-05-27 16:34 | PN ---
Progress Note, Physician - Current Medication List Current Medications: Active Medications Amlodipine Besylate (Norvasc -) 5 mg PO DAILY [facility] Last Admin: 05/27/18 09:29 Dose: 5 mg Amoxicillin/Clavulanate Potassium (Augmentin - 500mg Tablet) 1 tab PO BID@0800, 1730 [facility] Last Admin: 05/27/18 09:28 Dose: 1 tab Aspirin (Asa -) 81 mg PO DAILY [facility] Last Admin: 05/27/18 09:29 Dose: 81 mg Atorvastatin Calcium (Lipitor -) 40 mg PO HS [facility] Last Admin: 05/26/18 22:50 Dose: 40 mg Cholecalciferol (Vitamin D3 -) 2,000 unit PO BID [facility] Last Admin: 05/27/18 09:28 Dose: 2,000 unit Clopidogrel Bisulfate (Plavix -) 75 mg PO DAILY [facility] Last Admin: 05/27/18 09:28 Dose: 75 mg Glipizide (Glucotrol Xl -) 10 mg PO ACBK [facility] Last Admin: 05/27/18 06:44 Dose: 10 mg Heparin Sodium (Porcine) (Heparin -) 5,000 unit SQ BID [facility] Last Admin: 05/27/18 09:29 Dose: 5,000 unit Insulin Aspart (Novolog Vial Sliding Scale -) 1 vial SQ [facility]; Protocol Last Admin: 05/26/18 22:54 Dose: Not Given Insulin Aspart (Novolog Vial Sliding Scale -) 1 vial SQ TIDAC [facility]; Protocol Insulin Detemir (Levemir Vial) 32 units SQ [facility] Metoprolol Tartrate (Lopressor -) 50 mg PO DAILY [facility] Last Admin: 05/27/18 09:28 Dose: 50 mg Sodium Hypochlorite (Dakin's Solution 0.25% (Half-Strength) -) 1 applic TP BID [facility] Last Admin: 05/27/18 09:29 Dose: Not Given Tamsulosin HCl (Flomax -) 0.4 mg PO DAILY@0830 [facility] Last Admin: 05/27/18 09:28 Dose: 0.4 mg - Objective Vital Signs: Vital Signs Temperature 98.0 F 05/27/18 14:27 Pulse Rate 57 L 05/27/18 14:27 Respiratory Rate 22 H 05/27/18 14:27 Blood Pressure 144/78 05/27/18 14:27 O2 Sat by Pulse Oximetry (%) 96 05/27/18 09:00 Labs: CBC, BMP 05/27/18 08:30 05/27/18 08:30 INR, PTT INR 1.43 (0.83-1.09) H 05/21/18 14:07 Problem List - Problems (1) Wound cellulitis Code(s): L03.90 - CELLULITIS, UNSPECIFIED (2) Cellulitis and abscess of foot Code(s): L03.119 - CELLULITIS OF UNSPECIFIED PART OF LIMB; L02.619 - CUTANEOUS ABSCESS OF UNSPECIFIED FOOT (3) Diabetic toe ulcer Code(s): E11.621 - TYPE 2 DIABETES MELLITUS WITH FOOT ULCER; L97.509 - NON- PRESSURE CHRONIC ULCER OTH PRT UNSP FOOT W UNSP SEVERITY (4) HTN (hypertension) Code(s): I10 - ESSENTIAL (PRIMARY) HYPERTENSION (5) Gangrene of toe of left foot Code(s): I96 - GANGRENE, NOT ELSEWHERE CLASSIFIED (6) CHF (congestive heart failure) Code(s): I50.9 - HEART FAILURE, UNSPECIFIED
[2018-05-27] MEDS: ATORVASTATIN CA 40 MG TABLET (FP) PO SCH (23:16)
[2018-05-27] MEDS: INSULIN (LEVEMIR) 100 UNITS/ML UNITS SQ SCH (23:16)
[2018-05-28] MEDS ORDERED: PT OWN MED DRAWER 7, Y5N ONE ×2 (06:33→06:58)
[2018-05-28] MEDS: INSULIN SLIDING SCALE (NOVOLOG) 1 VIAL SQ SCH ×4 (06:44→21:55)
[2018-05-28] MEDS: glipiZIDE-XL 10 MG TAB.ER.24 (FP) PO SCH (06:44)
[2018-05-28] MEDS: AMOX TR/POT CLAV 500MG/125MG TABLETS (FP) PO SCH ×2 (08:14→17:06)
[2018-05-28] MEDS: TAMSULOSIN HCL 0.4 MG CAP PO SCH (08:15)
[2018-05-28] MEDS: ASPIRIN 81 MG CHEWABLE TABLETS PO SCH (11:14)
[2018-05-28] MEDS: CHOLECALCIFEROL (VITAMIN D3) 1,000 UNIT TABLET (FP) PO SCH ×2 (11:15→21:56)
[2018-05-28] MEDS: CLOPIDOGREL BISULFATE 75 MG TABLET (FP) PO SCH (11:15)
[2018-05-28] MEDS: METOPROLOL TARTRATE 50 MG TABLET (FP) PO SCH (11:15)
[2018-05-28] MEDS: amLODIPine BESYLATE 5 MG TABLET (FP) PO SCH (11:15)
[2018-05-28] MEDS: HEPARIN NA (PORCINE) 5,000 UNITS/ML 1ML VIAL SQ SCH ×2 (11:16→21:56)
[2018-05-28] MEDS: SODIUM HYPOCHLORITE 0.25%- 473 ML BULK BOTTLE TP SCH ×2 (11:19→21:51)
--- NOTE | 2018-05-28 11:43 | PN ---
Progress Note, Physician History of Present Illness: No new events reported. Pt denies pain in LLE, remains afebrile. Wound vac in place. - Current Medication List Current Medications: Active Medications Amlodipine Besylate (Norvasc -) 5 mg PO DAILY [facility] Last Admin: 05/28/18 11:15 Dose: 5 mg Amoxicillin/Clavulanate Potassium (Augmentin - 500mg Tablet) 1 tab PO BID@0800, 1730 [facility] Last Admin: 05/28/18 08:14 Dose: 1 tab Aspirin (Asa -) 81 mg PO DAILY [facility] Last Admin: 05/28/18 11:14 Dose: 81 mg Atorvastatin Calcium (Lipitor -) 40 mg PO HS [facility] Last Admin: 05/27/18 23:16 Dose: 40 mg Cholecalciferol (Vitamin D3 -) 2,000 unit PO BID [facility] Last Admin: 05/28/18 11:15 Dose: 2,000 unit Clopidogrel Bisulfate (Plavix -) 75 mg PO DAILY [facility] Last Admin: 05/28/18 11:15 Dose: 75 mg Glipizide (Glucotrol Xl -) 10 mg PO ACBK [facility] Last Admin: 05/28/18 06:44 Dose: 10 mg Heparin Sodium (Porcine) (Heparin -) 5,000 unit SQ BID [facility] Last Admin: 05/28/18 11:16 Dose: 5,000 unit Insulin Aspart (Novolog Vial Sliding Scale -) 1 vial SQ [facility]; Protocol Last Admin: 05/27/18 23:25 Dose: Not Given Insulin Aspart (Novolog Vial Sliding Scale -) 1 vial SQ TIDAC [facility]; Protocol Last Admin: 05/28/18 11:20 Dose: 4 units Insulin Detemir (Levemir Vial) 32 units SQ [facility] Last Admin: 05/27/18 23:16 Dose: 32 units Metoprolol Tartrate (Lopressor -) 50 mg PO DAILY [facility] Last Admin: 05/28/18 11:15 Dose: 50 mg Sodium Hypochlorite (Dakin's Solution 0.25% (Half-Strength) -) 1 applic TP BID [facility] Last Admin: 05/28/18 11:19 Dose: Not Given Tamsulosin HCl (Flomax -) 0.4 mg PO DAILY@0830 [facility] Last Admin: 05/28/18 08:15 Dose: 0.4 mg - Objective Vital Signs: Vital Signs Temperature 97.9 F 05/28/18 05:49 Pulse Rate 66 05/28/18 05:49 Respiratory Rate 20 05/28/18 05:49 Blood Pressure 160/99 05/28/18 05:49 O2 Sat by Pulse Oximetry (%) 96 05/27/18 21:00 Constitutional: Yes: No Distress, Calm Cardiovascular: Yes: Regular Rate and Rhythm Respiratory: Yes: Regular Gastrointestinal: Yes: Normal Bowel Sounds, Soft, Abdomen, Obese Extremities: Yes: Erythema (LLE mild warmth/erythema, Lt foot wound vac) Neurological: Yes: Alert, Oriented Labs: CBC, BMP 05/27/18 08:30 05/27/18 08:30 INR, PTT INR 1.43 (0.83-1.09) H 05/21/18 14:07 Problem List - Problems (1) Gangrene of toe of left foot Code(s): I96 - GANGRENE, NOT ELSEWHERE CLASSIFIED (2) HTN (hypertension) Code(s): I10 - ESSENTIAL (PRIMARY) HYPERTENSION (3) 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 Code(s): Z89.412 - ACQUIRED ABSENCE OF LEFT GREAT TOE (4) CHF (congestive heart failure) Code(s): I50.9 - HEART FAILURE, UNSPECIFIED (5) Diabetes Code(s): E11.9 - TYPE 2 DIABETES MELLITUS WITHOUT COMPLICATIONS Qualifiers: Diabetes mellitus type: type 1 Diabetes mellitus complication status: with diabetic arthropathy Diabetes mellitus complication detail: with neuropathic arthropathy Qualified 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
--- NOTE | 2018-05-28 11:49 | PN ---
Progress Note (short form) - Note Progress Note: Feels good Denies any complaints Blood sugar stable Vital Signs Period Temp Pulse Resp BP Sys/Alfonso Pulse Ox Last 24 Hr 97.5 F-98.0 F 57-66 20-22 144-160/78-99 96 PE: AOx3 Neck: supple, No JVD HEENT: EOMI Lungs: CTA CVS: S1S2 Abd: Benign EXt: Left foot vac dressing, +trace edema Neuro: No focal deficit CMP Sodium 137 mmol/L (136-145) 05/27/18 08:30 Potassium 4.4 mmol/L (3.5-5.1) 05/27/18 08:30 Chloride 101 mmol/L (98-107) 05/27/18 08:30 Carbon Dioxide 29 mmol/L (21-32) 05/27/18 08:30 Anion Gap 6 MMOL/L (8-16) L 05/27/18 08:30 BUN 26 mg/dL (7-18) H 05/27/18 08:30 Creatinine 1.7 mg/dL (0.55-1.3) H 05/27/18 08:30 Creat Clearance w eGFR 40.40 (>60) 05/27/18 08:30 POC Glucometer 143 UNITS (80-120) 05/28/18 11:12 Random Glucose 149 mg/dL (74-106) H 05/27/18 08:30 Hemoglobin A1c % 6.1 % (4.2-6.3) 05/21/18 21:10 Lactic Acid 1.8 mmol/L (0.4-2.0) 05/21/18 19:18 Calcium 8.5 mg/dL (8.5-10.1) 05/27/18 08:30 Total Bilirubin 0.5 mg/dL (0.2-1) 05/27/18 08:30 AST 38 U/L (15-37) H 05/27/18 08:30 ALT 44 U/L (13-61) 05/27/18 08:30 Alkaline Phosphatase 118 U/L (45-117) H 05/27/18 08:30 Creatine Kinase 408 IU/L (26-308) H 05/21/18 14:07 Creatine Kinase Index 1.4 % (0.0-5.0) 05/21/18 14:07 CK-MB (CK-2) 5.9 ng/mL (0.5-3.6) H 05/21/18 14:07 Troponin I 0.04 ng/ml (0.00-0.05) 05/21/18 14:07 C-Reactive Protein 19.5 MG/DL (0.00-0.3) H 05/21/18 14:07 Total Protein 6.9 g/dl (6.4-8.2) 05/27/18 08:30 Albumin 2.1 g/dl (3.4-5.0) L 05/27/18 08:30 Current Medications Generic Name Dose Route Start Last Admin Trade Name Freq PRN Reason Stop Dose Admin Amlodipine Besylate 5 mg 05/23/18 10:00 05/28/18 11:15 Norvasc - PO 5 mg DAILY TONNY Administration Amoxicillin/Clavulanate Potassium 1 tab 05/26/18 17:30 05/28/18 08:14 Augmentin - 500mg Tablet PO 1 tab BID@0800,1730 TONNY Administration Aspirin 81 mg 05/23/18 10:00 05/28/18 11:14 Asa - PO 81 mg DAILY TONNY Administration Atorvastatin Calcium 40 mg 05/22/18 22:00 05/27/18 23:16 Lipitor - PO 40 mg HS TONNY Administration Cholecalciferol 2,000 unit 05/22/18 22:00 05/28/18 11:15 Vitamin D3 - PO 2,000 unit BID TONNY Administration Clopidogrel Bisulfate 75 mg 05/23/18 10:00 05/28/18 11:15 Plavix - PO 75 mg DAILY TONNY Administration Glipizide 10 mg 05/23/18 07:00 05/28/18 06:44 Glucotrol Xl - PO 10 mg ACBK TONNY Administration Heparin Sodium (Porcine) 5,000 unit 05/22/18 22:00 05/28/18 11:16 Heparin - SQ 5,000 unit BID TONNY Administration Insulin Aspart 1 vial 05/23/18 22:00 05/27/18 23:25 Novolog Vial Sliding Scale - SQ Not Given HS TONNY Protocol Insulin Aspart 1 vial 05/27/18 11:03 05/28/18 11:20 Novolog Vial Sliding Scale - SQ 4 units TIDAC TONNY Administration Protocol Insulin Detemir 32 units 05/27/18 22:00 05/27/18 23:16 Levemir Vial SQ 32 units HS TONNY Administration Metoprolol Tartrate 50 mg 05/23/18 10:00 05/28/18 11:15 Lopressor - PO 50 mg DAILY TONNY Administration Sodium Hypochlorite 1 applic 05/23/18 10:00 05/28/18 11:19 Dakin's Solution 0.25% (Half-Strength) - TP Not Given BID [facility] Tamsulosin HCl 0.4 mg 05/23/18 08:30 05/28/18 08:15 Flomax - PO 0.4 mg DAILY@0830 TONNY Administration AP; T2DM uncontrolled S/P Amputation left big toe for infection HTN HLD BGM Q ACHS Levemir 32 units Daily at HS Novolog SS coverage Local wound care Augmentin 500 BID Will f/u
--- NOTE | 2018-05-28 15:09 | PN ---
Progress Note, Physician - Current Medication List Current Medications: Active Medications Amlodipine Besylate (Norvasc -) 5 mg PO DAILY [facility] Last Admin: 05/28/18 11:15 Dose: 5 mg Amoxicillin/Clavulanate Potassium (Augmentin - 500mg Tablet) 1 tab PO BID@0800, 1730 [facility] Last Admin: 05/28/18 08:14 Dose: 1 tab Aspirin (Asa -) 81 mg PO DAILY [facility] Last Admin: 05/28/18 11:14 Dose: 81 mg Atorvastatin Calcium (Lipitor -) 40 mg PO HS [facility] Last Admin: 05/27/18 23:16 Dose: 40 mg Cholecalciferol (Vitamin D3 -) 2,000 unit PO BID [facility] Last Admin: 05/28/18 11:15 Dose: 2,000 unit Clopidogrel Bisulfate (Plavix -) 75 mg PO DAILY [facility] Last Admin: 05/28/18 11:15 Dose: 75 mg Glipizide (Glucotrol Xl -) 10 mg PO ACBK [facility] Last Admin: 05/28/18 06:44 Dose: 10 mg Heparin Sodium (Porcine) (Heparin -) 5,000 unit SQ BID [facility] Last Admin: 05/28/18 11:16 Dose: 5,000 unit Insulin Aspart (Novolog Vial Sliding Scale -) 1 vial SQ HS [facility]; Protocol Last Admin: 05/27/18 23:25 Dose: Not Given Insulin Aspart (Novolog Vial Sliding Scale -) 1 vial SQ TIDAC [facility]; Protocol Last Admin: 05/28/18 11:20 Dose: 4 units Insulin Detemir (Levemir Vial) 32 units SQ HS [facility] Last Admin: 05/27/18 23:16 Dose: 32 units Metoprolol Tartrate (Lopressor -) 50 mg PO DAILY [facility] Last Admin: 05/28/18 11:15 Dose: 50 mg Sodium Hypochlorite (Dakin's Solution 0.25% (Half-Strength) -) 1 applic TP BID [facility] Last Admin: 05/28/18 11:19 Dose: Not Given Tamsulosin HCl (Flomax -) 0.4 mg PO DAILY@0830 [facility] Last Admin: 05/28/18 08:15 Dose: 0.4 mg - Objective Vital Signs: Vital Signs Temperature 97.9 F 05/28/18 05:49 Pulse Rate 66 05/28/18 05:49 Respiratory Rate 20 05/28/18 05:49 Blood Pressure 160/99 05/28/18 05:49 O2 Sat by Pulse Oximetry (%) 96 05/27/18 21:00 Labs: CBC, BMP 05/27/18 08:30 05/27/18 08:30 INR, PTT INR 1.43 (0.83-1.09) H 05/21/18 14:07 Problem List - Problems (1) Wound cellulitis Code(s): L03.90 - CELLULITIS, UNSPECIFIED (2) Cellulitis and abscess of foot Code(s): L03.119 - CELLULITIS OF UNSPECIFIED PART OF LIMB; L02.619 - CUTANEOUS ABSCESS OF UNSPECIFIED FOOT (3) Diabetic toe ulcer Code(s): E11.621 - TYPE 2 DIABETES MELLITUS WITH FOOT ULCER; L97.509 - NON- PRESSURE CHRONIC ULCER OTH PRT UNSP FOOT W UNSP SEVERITY (4) HTN (hypertension) Code(s): I10 - ESSENTIAL (PRIMARY) HYPERTENSION (5) Gangrene of toe of left foot Code(s): I96 - GANGRENE, NOT ELSEWHERE CLASSIFIED (6) CHF (congestive heart failure) Code(s): I50.9 - HEART FAILURE, UNSPECIFIED
[2018-05-28] MEDS: ATORVASTATIN CA 40 MG TABLET (FP) PO SCH (21:56)
[2018-05-28] MEDS: INSULIN (LEVEMIR) 100 UNITS/ML UNITS SQ SCH (21:56)
[2018-05-29] MEDS: glipiZIDE-XL 10 MG TAB.ER.24 (FP) PO SCH (06:33)
[2018-05-29] MEDS: INSULIN SLIDING SCALE (NOVOLOG) 1 VIAL SQ SCH ×4 (06:33→21:11)
[2018-05-29] MEDS: TAMSULOSIN HCL 0.4 MG CAP PO SCH (08:07)
[2018-05-29] MEDS: AMOX TR/POT CLAV 500MG/125MG TABLETS (FP) PO SCH ×2 (08:12→17:04)
[2018-05-29] MEDS: amLODIPine BESYLATE 5 MG TABLET (FP) PO SCH (10:08)
[2018-05-29] MEDS: CLOPIDOGREL BISULFATE 75 MG TABLET (FP) PO SCH (10:08)
[2018-05-29] MEDS: METOPROLOL TARTRATE 50 MG TABLET (FP) PO SCH (10:08)
[2018-05-29] MEDS: ASPIRIN 81 MG CHEWABLE TABLETS PO SCH (10:08)
[2018-05-29] MEDS: CHOLECALCIFEROL (VITAMIN D3) 1,000 UNIT TABLET (FP) PO SCH ×2 (10:08→21:11)
[2018-05-29] MEDS: HEPARIN NA (PORCINE) 5,000 UNITS/ML 1ML VIAL SQ SCH (10:09)
[2018-05-29] MEDS: SODIUM HYPOCHLORITE 0.25%- 473 ML BULK BOTTLE TP SCH ×2 (10:09→21:04)
--- NOTE | 2018-05-29 11:41 | PN ---
Progress Note (short form) - Note Progress Note: Feels good Denies any complaints Blood sugar stable Vital Signs Period Temp Pulse Resp BP Sys/Alfonso Pulse Ox Last 24 Hr 97.2 F-98.4 F 60-72 20-20 161-172/78-103 99 PE: AOx3 Neck: supple, No JVD HEENT: EOMI Lungs: CTA CVS: S1S2 Abd: Benign EXt: Left foot vac dressing, +trace edema Neuro: No focal deficit CMP Sodium 137 mmol/L (136-145) 05/27/18 08:30 Potassium 4.4 mmol/L (3.5-5.1) 05/27/18 08:30 Chloride 101 mmol/L (98-107) 05/27/18 08:30 Carbon Dioxide 29 mmol/L (21-32) 05/27/18 08:30 Anion Gap 6 MMOL/L (8-16) L 05/27/18 08:30 BUN 26 mg/dL (7-18) H 05/27/18 08:30 Creatinine 1.7 mg/dL (0.55-1.3) H 05/27/18 08:30 Creat Clearance w eGFR 40.40 (>60) 05/27/18 08:30 POC Glucometer 130 UNITS (80-120) 05/29/18 06:32 Random Glucose 149 mg/dL (74-106) H 05/27/18 08:30 Hemoglobin A1c % 6.1 % (4.2-6.3) 05/21/18 21:10 Lactic Acid 1.8 mmol/L (0.4-2.0) 05/21/18 19:18 Calcium 8.5 mg/dL (8.5-10.1) 05/27/18 08:30 Total Bilirubin 0.5 mg/dL (0.2-1) 05/27/18 08:30 AST 38 U/L (15-37) H 05/27/18 08:30 ALT 44 U/L (13-61) 05/27/18 08:30 Alkaline Phosphatase 118 U/L (45-117) H 05/27/18 08:30 Creatine Kinase 408 IU/L (26-308) H 05/21/18 14:07 Creatine Kinase Index 1.4 % (0.0-5.0) 05/21/18 14:07 CK-MB (CK-2) 5.9 ng/mL (0.5-3.6) H 05/21/18 14:07 Troponin I 0.04 ng/ml (0.00-0.05) 05/21/18 14:07 C-Reactive Protein 19.5 MG/DL (0.00-0.3) H 05/21/18 14:07 Total Protein 6.9 g/dl (6.4-8.2) 05/27/18 08:30 Albumin 2.1 g/dl (3.4-5.0) L 05/27/18 08:30 Current Medications Generic Name Dose Route Start Last Admin Trade Name Freq PRN Reason Stop Dose Admin Amlodipine Besylate 5 mg 05/23/18 10:00 05/29/18 10:08 Norvasc - PO 5 mg DAILY TONNY Administration Amoxicillin/Clavulanate Potassium 1 tab 05/26/18 17:30 05/29/18 08:12 Augmentin - 500mg Tablet PO 1 tab BID@0800,1730 TONNY Administration Aspirin 81 mg 05/23/18 10:00 05/29/18 10:08 Asa - PO 81 mg DAILY TONNY Administration Atorvastatin Calcium 40 mg 05/22/18 22:00 05/28/18 21:56 Lipitor - PO 40 mg HS TONNY Administration Cholecalciferol 2,000 unit 05/22/18 22:00 05/29/18 10:08 Vitamin D3 - PO 2,000 unit BID TONNY Administration Clopidogrel Bisulfate 75 mg 05/23/18 10:00 05/29/18 10:08 Plavix - PO 75 mg DAILY TONNY Administration Glipizide 10 mg 05/23/18 07:00 05/29/18 06:33 Glucotrol Xl - PO 10 mg ACBK TONNY Administration Heparin Sodium (Porcine) 5,000 unit 05/22/18 22:00 05/29/18 10:09 Heparin - SQ 5,000 unit BID TONNY Administration Insulin Aspart 1 vial 05/23/18 22:00 05/28/18 21:55 Novolog Vial Sliding Scale - SQ Not Given HS TONNY Protocol Insulin Aspart 1 vial 05/27/18 11:03 05/29/18 11:28 Novolog Vial Sliding Scale - SQ 6 units TIDAC TONNY Administration Protocol Insulin Detemir 32 units 05/27/18 22:00 05/28/18 21:56 Levemir Vial SQ 32 units HS TONNY Administration Metoprolol Tartrate 50 mg 05/23/18 10:00 05/29/18 10:08 Lopressor - PO 50 mg DAILY TONNY Administration Sodium Hypochlorite 1 applic 05/23/18 10:00 05/29/18 10:09 Dakin's Solution 0.25% (Half-Strength) - TP Not Given BID [facility] Tamsulosin HCl 0.4 mg 05/23/18 08:30 05/29/18 08:07 Flomax - PO 0.4 mg DAILY@0830 TONNY Administration AP; T2DM uncontrolled S/P Amputation left big toe for infection HTN HLD BGM Q ACHS Continue Levemir 32 units Daily at HS Novolog SS coverage Local wound care Augmentin 500 BID Will f/u
--- NOTE | 2018-05-29 12:01 | PN ---
Progress Note, Physician History of Present Illness: patient stable no complaints wound vac in place - Current Medication List Current Medications: Active Medications Amlodipine Besylate (Norvasc -) 5 mg PO DAILY [facility] Last Admin: 05/29/18 10:08 Dose: 5 mg Amoxicillin/Clavulanate Potassium (Augmentin - 500mg Tablet) 1 tab PO BID@0800, 1730 [facility] Last Admin: 05/29/18 08:12 Dose: 1 tab Aspirin (Asa -) 81 mg PO DAILY [facility] Last Admin: 05/29/18 10:08 Dose: 81 mg Atorvastatin Calcium (Lipitor -) 40 mg PO HS [facility] Last Admin: 05/28/18 21:56 Dose: 40 mg Cholecalciferol (Vitamin D3 -) 2,000 unit PO BID [facility] Last Admin: 05/29/18 10:08 Dose: 2,000 unit Clopidogrel Bisulfate (Plavix -) 75 mg PO DAILY [facility] Last Admin: 05/29/18 10:08 Dose: 75 mg Glipizide (Glucotrol Xl -) 10 mg PO ACBK [facility] Last Admin: 05/29/18 06:33 Dose: 10 mg Heparin Sodium (Porcine) (Heparin -) 5,000 unit SQ BID [facility] Last Admin: 05/29/18 10:09 Dose: 5,000 unit Insulin Aspart (Novolog Vial Sliding Scale -) 1 vial SQ HS [facility]; Protocol Last Admin: 05/28/18 21:55 Dose: Not Given Insulin Aspart (Novolog Vial Sliding Scale -) 1 vial SQ TIDAC [facility]; Protocol Last Admin: 05/29/18 11:28 Dose: 6 units Insulin Detemir (Levemir Vial) 32 units SQ [facility] Last Admin: 05/28/18 21:56 Dose: 32 units Metoprolol Tartrate (Lopressor -) 50 mg PO DAILY [facility] Last Admin: 05/29/18 10:08 Dose: 50 mg Sodium Hypochlorite (Dakin's Solution 0.25% (Half-Strength) -) 1 applic TP BID [facility] Last Admin: 05/29/18 10:09 Dose: Not Given Tamsulosin HCl (Flomax -) 0.4 mg PO DAILY@0830 [facility] Last Admin: 05/29/18 08:07 Dose: 0.4 mg - Objective Vital Signs: Vital Signs Temperature 97.2 F L 05/29/18 07:34 Pulse Rate 72 05/29/18 07:34 Respiratory Rate 20 05/29/18 07:34 Blood Pressure 172/78 H 05/29/18 07:34 O2 Sat by Pulse Oximetry (%) 99 05/28/18 21:00 Constitutional: Yes: No Distress, Calm, Obese Cardiovascular: Yes: S1, S2 Respiratory: Yes: Regular, CTA Bilaterally Gastrointestinal: Yes: Normal Bowel Sounds, Soft Musculoskeletal: Yes: WNL Extremities: Yes: Other Wound/Incision: Yes: Other (wound vac in place) Psychiatric: Yes: Alert Labs: CBC, BMP 05/27/18 08:30 05/27/18 08:30 INR, PTT INR 1.43 (0.83-1.09) H 05/21/18 14:07 Assessment/Plan Problem List - Problems (1) Wound cellulitis Code(s): L03.90 - CELLULITIS, UNSPECIFIED (2) Cellulitis and abscess of foot Code(s): L03.119 - CELLULITIS OF UNSPECIFIED PART OF LIMB; L02.619 - CUTANEOUS ABSCESS OF UNSPECIFIED FOOT (3) Diabetic toe ulcer Code(s): E11.621 - TYPE 2 DIABETES MELLITUS WITH FOOT ULCER; L97.509 - NON- PRESSURE CHRONIC ULCER OTH PRT UNSP FOOT W UNSP SEVERITY plan is to evaluate the wound tomorrow and decide if he needs further amputation plan continue oral abx rest as per the team
--- NOTE | 2018-05-29 12:53 | PN ---
Progress Note, Physician History of Present Illness: stable - Current Medication List Current Medications: Active Medications Amlodipine Besylate (Norvasc -) 5 mg PO DAILY [facility] Last Admin: 05/29/18 10:08 Dose: 5 mg Amoxicillin/Clavulanate Potassium (Augmentin - 500mg Tablet) 1 tab PO BID@0800, 1730 [facility] Last Admin: 05/29/18 08:12 Dose: 1 tab Aspirin (Asa -) 81 mg PO DAILY [facility] Last Admin: 05/29/18 10:08 Dose: 81 mg Atorvastatin Calcium (Lipitor -) 40 mg PO HS [facility] Last Admin: 05/28/18 21:56 Dose: 40 mg Cholecalciferol (Vitamin D3 -) 2,000 unit PO BID [facility] Last Admin: 05/29/18 10:08 Dose: 2,000 unit Clopidogrel Bisulfate (Plavix -) 75 mg PO DAILY [facility] Last Admin: 05/29/18 10:08 Dose: 75 mg Glipizide (Glucotrol Xl -) 10 mg PO ACBK [facility] Last Admin: 05/29/18 06:33 Dose: 10 mg Heparin Sodium (Porcine) (Heparin -) 5,000 unit SQ BID [facility] Last Admin: 05/29/18 10:09 Dose: 5,000 unit Insulin Aspart (Novolog Vial Sliding Scale -) 1 vial SQ HS [facility]; Protocol Last Admin: 05/28/18 21:55 Dose: Not Given Insulin Aspart (Novolog Vial Sliding Scale -) 1 vial SQ TIDAC [facility]; Protocol Last Admin: 05/29/18 11:28 Dose: 6 units Insulin Detemir (Levemir Vial) 32 units SQ [facility] Last Admin: 05/28/18 21:56 Dose: 32 units Metoprolol Tartrate (Lopressor -) 50 mg PO DAILY [facility] Last Admin: 05/29/18 10:08 Dose: 50 mg Sodium Hypochlorite (Dakin's Solution 0.25% (Half-Strength) -) 1 applic TP BID [facility] Last Admin: 05/29/18 10:09 Dose: Not Given Tamsulosin HCl (Flomax -) 0.4 mg PO DAILY@0830 [facility] Last Admin: 05/29/18 08:07 Dose: 0.4 mg - Objective Vital Signs: Vital Signs Temperature 97.2 F L 05/29/18 07:34 Pulse Rate 72 05/29/18 07:34 Respiratory Rate 20 05/29/18 07:34 Blood Pressure 172/78 H 05/29/18 07:34 O2 Sat by Pulse Oximetry (%) 99 05/28/18 21:00 Constitutional: Yes: No Distress HENT: Yes: Atraumatic Neck: Yes: Supple Cardiovascular: Yes: Regular Rate and Rhythm Respiratory: Yes: CTA Bilaterally Gastrointestinal: Yes: Normal Bowel Sounds Extremities: Yes: Other (L foot wound vac in place) Edema: Yes Edema: LLE: 1+ (lef foot) Neurological: Yes: Alert, Oriented Labs: CBC, BMP 05/27/18 08:30 05/27/18 08:30 INR, PTT INR 1.43 (0.83-1.09) H 05/21/18 14:07 Problem List - Problems (1) Wound cellulitis Code(s): L03.90 - CELLULITIS, UNSPECIFIED (2) Cellulitis and abscess of foot Code(s): L03.119 - CELLULITIS OF UNSPECIFIED PART OF LIMB; L02.619 - CUTANEOUS ABSCESS OF UNSPECIFIED FOOT (3) Diabetic toe ulcer Assessment/Plan: s/p left big toe amputation on po abx wound vac dc to snf Code(s): E11.621 - TYPE 2 DIABETES MELLITUS WITH FOOT ULCER; L97.509 - NON- PRESSURE CHRONIC ULCER OTH PRT UNSP FOOT W UNSP SEVERITY (4) HTN (hypertension) Assessment/Plan: on meds stable Code(s): I10 - ESSENTIAL (PRIMARY) HYPERTENSION (5) Gangrene of toe of left foot Code(s): I96 - GANGRENE, NOT ELSEWHERE CLASSIFIED (6) CHF (congestive heart failure) Code(s): I50.9 - HEART FAILURE, UNSPECIFIED (7) Diabetes Assessment/Plan: on insulin oral meds monitor bgms Code(s): E11.9 - TYPE 2 DIABETES MELLITUS WITHOUT COMPLICATIONS Qualifiers: Diabetes mellitus type: type 1 Diabetes mellitus complication status: with diabetic arthropathy Diabetes mellitus complication detail: with neuropathic arthropathy Qualified 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
--- NOTE | 2018-05-29 12:53 | DS ---
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 (Acute) Wound cellulitis (Acute) Condition: Stable - Instructions Diet, Activity, Other Instructions: 1) continue wound vac changes M,W,F 2) elevate left LE 3) ABX per ID Referrals: Hernando Santillan MD [Primary Care Provider] - Alok Nelson MD [Staff Physician] - - Home Medications Comprehensive Discharge Medication List: Ambulatory Orders Amlodipine Besylate [Norvasc -] 5 mg PO DAILY 08/04/14 Aspirin [ASA -] 81 mg PO DAILY 08/04/14 Atorvastatin Ca [Lipitor] 40 mg PO HS 08/04/14 Clopidogrel Bisulfate [Plavix -] 75 mg PO DAILY 08/04/14 Ergocalciferol [Vitamin D2] 2,000 unit PO BID 08/04/14 Glipizide [Glipizide ER] 10 mg PO DAILY 08/04/14 Insulin Aspart [Novolog Flexpen] 0 unit SQ BIDAC 08/04/14 Metoprolol Tartrate [Lopressor -] 50 mg PO DAILY 08/04/14 Tamsulosin HCl [Flomax -] 0.4 mg PO DAILY 08/04/14 Insulin Glargine,Hum.rec.anlog [Basaglar Kwikpen U-100] 31 unit SQ HS 05/21/18 Amox-Tr/K Cl [Augmentin 500-125mg Tablet -] 1 tab PO BID@0800,1730 #20 tablet [facility]
--- NOTE | 2018-05-29 16:11 | PN ---
Progress Note (short form) - Note Progress Note: Pt seen and examined with Dr. Nelson today. Pt without any complaints of pain. Vital Signs Period Temp Pulse Resp BP Sys/Alfonso Pulse Ox Last 24 Hr 97.2 F-98.3 F 56-72 20-20 112-172/65-103 99 GEN: A&0x3, NAD Left foot: dressing changed today. Seda amount of necrotic tissue around the edges of the wound. No purulent drainge or foul odor. Medial aspect of wound with macerated tissue. Bone exposed. Some clean granulation tissue at the base. Foot warm with palpable DP pulse. CBC, BMP 05/27/18 08:30 05/27/18 08:30 Microbiology 05/21/18 16:30 Toe - Left Hallux Gram Stain - Final 05/21/18 16:30 Toe - Left Hallux Wound Culture - Final Staphylococcus Aureus Enterococcus Faecalis A/P: 68 yo male s/p Open ray amputation left 1st toe Plan is to continue local wound care with the vac dressing. Replaced today with white foam over the exposed bone/covered by black foam and a bridge. On appropriate oral antibiotcs with sensitivity or augmentin based on culture result. Continue this regimen as per ID The patient is awaiting transfer to Rehab facility and will need f/u in Dr. Day office next week.
[2018-05-29] MEDS: INSULIN (LEVEMIR) 100 UNITS/ML UNITS SQ SCH (21:09)
[2018-05-29] MEDS: ATORVASTATIN CA 40 MG TABLET (FP) PO SCH (21:11)
[2018-05-30] MEDS ORDERED: PT OWN MED DRAWER 7, Y5N ONE ×3 (05:38→08:30)
[2018-05-30] MEDS: INSULIN SLIDING SCALE (NOVOLOG) 1 VIAL SQ SCH ×4 (06:33→22:11)
[2018-05-30] MEDS: glipiZIDE-XL 10 MG TAB.ER.24 (FP) PO SCH (06:34)
[2018-05-30] MEDS ORDERED: INSULIN (LEVEMIR) 100 UNITS/ML UNITS SQ ONE (06:46)
[2018-05-30] MEDS ORDERED: INSULIN (NOVOLOG) ASPART 100 UNITS/ML 10ML VIAL ONE ×2 (06:47→11:23)
[2018-05-30 07:35] LABS: BASO % 0.7 % (0-2.0); HEMATOCRIT 41.9 % (35.4-49); HEMOGLOBIN 13.6 GM/dL (11.7-16.9); MCH 27.7 pg (25.7-33.7); MCHC 32.6 g/dl (32.0-35.9); MEAN CELL VOLUME 85.1 fl (80-96); MEAN PLT VOLUME 8.5 fl (7.5-11.1); MONO % 5.7 % (3.8-10.2); NEUT % 75.6 % (42.8-82.8); PLATELET COUNT 272 K/MM3 (134-434); RBC 4.92 M/mm3 (4.00-5.60); RDW 14.1 % (11.9-15.9); WHITE BLOOD COUNT 7.2 K/mm3 (4.0-10.0)
[2018-05-30 08:03] LABS: ALBUMIN 2.6 g/dl (3.4-5.0); ALK PHOS 112 U/L (45-117); ANION GAP 6 MMOL/L (8-16); BILIRUBIN,TOTAL 0.6 mg/dL (0.2-1); BLOOD UREA NITROGEN 34 mg/dL (7-18); CALCIUM 8.7 mg/dL (8.5-10.1); CHLORIDE 101 mmol/L (98-107); CO2 27 mmol/L (21-32); CREATININE 1.9 mg/dL (0.55-1.3); GLUCOSE,RANDOM 155 mg/dL (74-106); POTASSIUM 4.3 mmol/L (3.5-5.1); SGOT/AST 27 U/L (15-37); SGPT/ALT 40 U/L (13-61); SODIUM 135 mmol/L (136-145); TOT PROT 7.3 g/dl (6.4-8.2)
[2018-05-30] MEDS: TAMSULOSIN HCL 0.4 MG CAP PO SCH (08:39)
[2018-05-30] MEDS: AMOX TR/POT CLAV 500MG/125MG TABLETS (FP) PO SCH ×2 (08:39→17:40)
[2018-05-30] MEDS: METOPROLOL TARTRATE 50 MG TABLET (FP) PO SCH (09:19)
[2018-05-30] MEDS: SODIUM HYPOCHLORITE 0.25%- 473 ML BULK BOTTLE TP SCH ×2 (09:20→22:09)
[2018-05-30] MEDS: CLOPIDOGREL BISULFATE 75 MG TABLET (FP) PO SCH (09:20)
[2018-05-30] MEDS: ASPIRIN 81 MG CHEWABLE TABLETS PO SCH (09:20)
[2018-05-30] MEDS: amLODIPine BESYLATE 5 MG TABLET (FP) PO SCH (09:20)
[2018-05-30] MEDS: CHOLECALCIFEROL (VITAMIN D3) 1,000 UNIT TABLET (FP) PO SCH ×2 (09:20→22:11)
--- NOTE | 2018-05-30 14:43 | PN ---
Progress Note, Physician History of Present Illness: stable - Current Medication List Current Medications: Active Medications Amlodipine Besylate (Norvasc -) 5 mg PO DAILY [facility] Last Admin: 05/30/18 09:20 Dose: 5 mg Amoxicillin/Clavulanate Potassium (Augmentin - 500mg Tablet) 1 tab PO BID@0800, 1730 [facility] Last Admin: 05/30/18 08:39 Dose: 1 tab Aspirin (Asa -) 81 mg PO DAILY [facility] Last Admin: 05/30/18 09:20 Dose: 81 mg Atorvastatin Calcium (Lipitor -) 40 mg PO HS [facility] Last Admin: 05/29/18 21:11 Dose: 40 mg Cholecalciferol (Vitamin D3 -) 2,000 unit PO BID [facility] Last Admin: 05/30/18 09:20 Dose: 2,000 unit Clopidogrel Bisulfate (Plavix -) 75 mg PO DAILY [facility] Last Admin: 05/30/18 09:20 Dose: 75 mg Glipizide (Glucotrol Xl -) 10 mg PO ACBK [facility] Last Admin: 05/30/18 06:34 Dose: 10 mg Insulin Aspart (Novolog Vial Sliding Scale -) 1 vial SQ HS [facility]; Protocol Last Admin: 05/29/18 21:11 Dose: Not Given Insulin Aspart (Novolog Vial Sliding Scale -) 1 vial SQ TIDAC [facility]; Protocol Last Admin: 05/30/18 12:02 Dose: 8 units Insulin Detemir (Levemir Vial) 32 units SQ [facility] Last Admin: 05/29/18 21:09 Dose: 32 units Metoprolol Tartrate (Lopressor -) 50 mg PO DAILY [facility] Last Admin: 05/30/18 09:19 Dose: 50 mg Sodium Hypochlorite (Dakin's Solution 0.25% (Half-Strength) -) 1 applic TP BID [facility] Last Admin: 05/30/18 09:20 Dose: Not Given Tamsulosin HCl (Flomax -) 0.4 mg PO DAILY@0830 [facility] Last Admin: 05/30/18 08:39 Dose: 0.4 mg - Objective Vital Signs: Vital Signs Temperature 97.6 F 05/30/18 09:04 Pulse Rate 67 05/30/18 09:04 Respiratory Rate 20 05/30/18 09:04 Blood Pressure 127/66 05/30/18 09:04 O2 Sat by Pulse Oximetry (%) 100 05/30/18 09:00 Constitutional: Yes: No Distress HENT: Yes: Atraumatic Neck: Yes: Supple Cardiovascular: Yes: Regular Rate and Rhythm Respiratory: Yes: CTA Bilaterally Gastrointestinal: Yes: Normal Bowel Sounds Extremities: Yes: Other (left foot s/p big toe amputation..wound vac in place) Edema: Yes Edema: LLE: Trace (left foot) Peripheral Pulses WNL: Yes Neurological: Yes: Alert, Oriented Labs: CBC, BMP 05/30/18 06:45 05/30/18 06:45 INR, PTT INR 1.43 (0.83-1.09) H 05/21/18 14:07 Problem List - Problems (1) Wound cellulitis Code(s): L03.90 - CELLULITIS, UNSPECIFIED (2) Cellulitis and abscess of foot Code(s): L03.119 - CELLULITIS OF UNSPECIFIED PART OF LIMB; L02.619 - CUTANEOUS ABSCESS OF UNSPECIFIED FOOT (3) Diabetic toe ulcer Assessment/Plan: s/p left big toe amputation on po abx wound vac dc to snf Code(s): E11.621 - TYPE 2 DIABETES MELLITUS WITH FOOT ULCER; L97.509 - NON- PRESSURE CHRONIC ULCER OTH PRT UNSP FOOT W UNSP SEVERITY (4) Sepsis Assessment/Plan: on po abx now Code(s): A41.9 - SEPSIS, UNSPECIFIED ORGANISM (5) HTN (hypertension) Assessment/Plan: on meds stable Code(s): I10 - ESSENTIAL (PRIMARY) HYPERTENSION (6) Diabetes Assessment/Plan: on insulin oral meds monitor bgms Code(s): E11.9 - TYPE 2 DIABETES MELLITUS WITHOUT COMPLICATIONS Qualifiers: Diabetes mellitus type: type 1 Diabetes mellitus complication status: with diabetic arthropathy Diabetes mellitus complication detail: with neuropathic arthropathy Qualified 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
--- NOTE | 2018-05-30 16:19 | PN ---
Progress Note (short form) - Note Progress Note: Feels good Denies any complaints Blood sugar stable Vital Signs Period Temp Pulse Resp BP Sys/Alfonso Pulse Ox Last 24 Hr 97.4 F-98.2 F 57-67 20-20 122-153/66-88 99-100 PE: AOx3 Neck: supple, No JVD HEENT: EOMI Lungs: CTA CVS: S1S2 Abd: Benign EXt: Left foot vac dressing, +trace edema Neuro: No focal deficit CMP Sodium 135 mmol/L (136-145) L 05/30/18 06:45 Potassium 4.3 mmol/L (3.5-5.1) 05/30/18 06:45 Chloride 101 mmol/L (98-107) 05/30/18 06:45 Carbon Dioxide 27 mmol/L (21-32) 05/30/18 06:45 Anion Gap 6 MMOL/L (8-16) L 05/30/18 06:45 BUN 34 mg/dL (7-18) H 05/30/18 06:45 Creatinine 1.9 mg/dL (0.55-1.3) H 05/30/18 06:45 Creat Clearance w eGFR 35.54 (>60) 05/30/18 06:45 POC Glucometer 213 UNITS (80-120) 05/30/18 11:18 Random Glucose 155 mg/dL (74-106) H 05/30/18 06:45 Hemoglobin A1c % 6.1 % (4.2-6.3) 05/21/18 21:10 Lactic Acid 1.8 mmol/L (0.4-2.0) 05/21/18 19:18 Calcium 8.7 mg/dL (8.5-10.1) 05/30/18 06:45 Total Bilirubin 0.6 mg/dL (0.2-1) 05/30/18 06:45 AST 27 U/L (15-37) 05/30/18 06:45 ALT 40 U/L (13-61) 05/30/18 06:45 Alkaline Phosphatase 112 U/L (45-117) 05/30/18 06:45 Creatine Kinase 408 IU/L (26-308) H 05/21/18 14:07 Creatine Kinase Index 1.4 % (0.0-5.0) 05/21/18 14:07 CK-MB (CK-2) 5.9 ng/mL (0.5-3.6) H 05/21/18 14:07 Troponin I 0.04 ng/ml (0.00-0.05) 05/21/18 14:07 C-Reactive Protein 19.5 MG/DL (0.00-0.3) H 05/21/18 14:07 Total Protein 7.3 g/dl (6.4-8.2) 05/30/18 06:45 Albumin 2.6 g/dl (3.4-5.0) L 05/30/18 06:45 Current Medications Generic Name Dose Route Start Last Admin Trade Name Freq PRN Reason Stop Dose Admin Amlodipine Besylate 5 mg 05/23/18 10:00 05/30/18 09:20 Norvasc - PO 5 mg DAILY [facility] Administration Amoxicillin/Clavulanate Potassium 1 tab 05/26/18 17:30 05/30/18 08:39 Augmentin - 500mg Tablet PO 1 tab BID@0800,1730 [facility] Administration Aspirin 81 mg 05/23/18 10:00 05/30/18 09:20 Asa - PO 81 mg DAILY [facility] Administration Atorvastatin Calcium 40 mg 05/22/18 22:00 05/29/18 21:11 Lipitor - PO 40 mg HS [facility] Administration Cholecalciferol 2,000 unit 05/22/18 22:00 05/30/18 09:20 Vitamin D3 - PO 2,000 unit BID [facility] Administration Clopidogrel Bisulfate 75 mg 05/23/18 10:00 05/30/18 09:20 Plavix - PO 75 mg DAILY [facility] Administration Glipizide 10 mg 05/23/18 07:00 05/30/18 06:34 Glucotrol Xl - PO 10 mg ACBK [facility] Administration Insulin Aspart 1 vial 05/23/18 22:00 05/29/18 21:11 Novolog Vial Sliding Scale - SQ Not Given HS [facility] Protocol Insulin Aspart 1 vial 05/27/18 11:03 05/30/18 12:02 Novolog Vial Sliding Scale - SQ 8 units TIDAC [facility] Administration Protocol Insulin Detemir 32 units 05/27/18 22:00 05/29/18 21:09 Levemir Vial SQ 32 units HS [facility] Administration Metoprolol Tartrate 50 mg 05/23/18 10:00 05/30/18 09:19 Lopressor - PO 50 mg DAILY [facility] Administration Sodium Hypochlorite 1 applic 05/23/18 10:00 05/30/18 09:20 Dakin's Solution 0.25% (Half-Strength) - TP Not Given BID [facility] Tamsulosin HCl 0.4 mg 05/23/18 08:30 05/30/18 08:39 Flomax - PO 0.4 mg DAILY@0830 [facility] Administration AP; T2DM uncontrolled S/P Amputation left big toe for infection HTN HLD CKD BGM Q ACHS Increase Levemir 35 units Daily at HS Novolog SS coverage Change Glipizide XL 10 to Glipizide 5 mg BID with meals Local wound care Augmentin 500 BID Will f/u
[2018-05-30] MEDS: glipiZIDE 5 MG TABLET (FP) PO SCH (17:40)
[2018-05-30] MEDS ORDERED: INSULIN (LEVEMIR) 100 UNITS/ML UNITS SQ SCH (22:00)
[2018-05-30] MEDS: ATORVASTATIN CA 40 MG TABLET (FP) PO SCH (22:10)
[2018-05-31] MEDS: glipiZIDE 5 MG TABLET (FP) PO SCH ×2 (06:23→16:54)
[2018-05-31] MEDS: INSULIN SLIDING SCALE (NOVOLOG) 1 VIAL SQ SCH ×3 (06:24→16:56)
[2018-05-31] MEDS ORDERED: INSULIN (NOVOLOG) ASPART 100 UNITS/ML 10ML VIAL ONE ×2 (06:36→16:52)
[2018-05-31] MEDS ORDERED: PT OWN MED DRAWER 7, Y5N ONE (09:17)
[2018-05-31] MEDS: CHOLECALCIFEROL (VITAMIN D3) 1,000 UNIT TABLET (FP) PO SCH (09:19)
[2018-05-31] MEDS: ASPIRIN 81 MG CHEWABLE TABLETS PO SCH (09:19)
[2018-05-31] MEDS: CLOPIDOGREL BISULFATE 75 MG TABLET (FP) PO SCH (09:19)
[2018-05-31] MEDS: amLODIPine BESYLATE 5 MG TABLET (FP) PO SCH (09:19)
[2018-05-31] MEDS: AMOX TR/POT CLAV 500MG/125MG TABLETS (FP) PO SCH (09:19)
[2018-05-31] MEDS: TAMSULOSIN HCL 0.4 MG CAP PO SCH (09:19)
[2018-05-31] MEDS: SODIUM HYPOCHLORITE 0.25%- 473 ML BULK BOTTLE TP SCH (09:19)
[2018-05-31] MEDS: METOPROLOL TARTRATE 50 MG TABLET (FP) PO SCH (09:19)
--- NOTE | 2018-05-31 11:36 | PN ---
Progress Note, Physician History of Present Illness: doing well dressing removed wound looked at wound looks good wound vac being placed - Current Medication List Current Medications: Active Medications Amlodipine Besylate (Norvasc -) 5 mg PO DAILY [facility] Last Admin: 05/31/18 09:19 Dose: 5 mg Amoxicillin/Clavulanate Potassium (Augmentin - 500mg Tablet) 1 tab PO BID@0800, 1730 [facility] Last Admin: 05/31/18 09:19 Dose: 1 tab Aspirin (Asa -) 81 mg PO DAILY [facility] Last Admin: 05/31/18 09:19 Dose: 81 mg Atorvastatin Calcium (Lipitor -) 40 mg PO HS [facility] Last Admin: 05/30/18 22:10 Dose: 40 mg Cholecalciferol (Vitamin D3 -) 2,000 unit PO BID [facility] Last Admin: 05/31/18 09:19 Dose: 2,000 unit Clopidogrel Bisulfate (Plavix -) 75 mg PO DAILY [facility] Last Admin: 05/31/18 09:19 Dose: 75 mg Glipizide (Glucotrol -) 5 mg PO BID@0700,1630 [facility] Last Admin: 05/31/18 06:23 Dose: 5 mg Insulin Aspart (Novolog Vial Sliding Scale -) 1 vial SQ HS [facility]; Protocol Last Admin: 05/30/18 22:11 Dose: Not Given Insulin Aspart (Novolog Vial Sliding Scale -) 1 vial SQ TIDAC [facility]; Protocol Last Admin: 05/31/18 06:24 Dose: 6 units Insulin Detemir (Levemir Vial) 35 units SQ [facility] Last Admin: 05/30/18 22:10 Dose: 35 units Metoprolol Tartrate (Lopressor -) 50 mg PO DAILY [facility] Last Admin: 05/31/18 09:19 Dose: 50 mg Sodium Hypochlorite (Dakin's Solution 0.25% (Half-Strength) -) 1 applic TP BID [facility] Last Admin: 05/31/18 09:19 Dose: Not Given Tamsulosin HCl (Flomax -) 0.4 mg PO DAILY@0830 [facility] Last Admin: 05/31/18 09:19 Dose: 0.4 mg - Objective Vital Signs: Vital Signs Temperature 97.1 F L 05/31/18 09:00 Pulse Rate 74 05/31/18 09:00 Respiratory Rate 20 05/31/18 09:00 Blood Pressure 138/76 05/31/18 09:00 O2 Sat by Pulse Oximetry (%) 100 05/30/18 21:00 Constitutional: Yes: No Distress, Calm Cardiovascular: Yes: Regular Rate and Rhythm Respiratory: Yes: Regular, CTA Bilaterally Gastrointestinal: Yes: Normal Bowel Sounds, Soft Musculoskeletal: Yes: WNL Extremities: Yes: Other Integumentary: Yes: Other Wound/Incision: Yes: Other (wound vac in place) Neurological: Yes: Alert, Oriented Psychiatric: Yes: Alert, Oriented Labs: CBC, BMP 05/30/18 06:45 05/30/18 06:45 INR, PTT INR 1.43 (0.83-1.09) H 05/21/18 14:07 Assessment/Plan Problem List - Problems (1) Wound cellulitis Code(s): L03.90 - CELLULITIS, UNSPECIFIED (2) Cellulitis and abscess of foot Code(s): L03.119 - CELLULITIS OF UNSPECIFIED PART OF LIMB; L02.619 - CUTANEOUS ABSCESS OF UNSPECIFIED FOOT (3) Diabetic toe ulcer Code(s): E11.621 - TYPE 2 DIABETES MELLITUS WITH FOOT ULCER; L97.509 - NON- PRESSURE CHRONIC ULCER OTH PRT UNSP FOOT W UNSP SEVERITY plan continue wound care continue oral abx awaiting final plan will stop abx
--- NOTE | 2018-05-31 13:00 | PN ---
Progress Note (short form) - Note Progress Note: Feels good Denies any complaints Blood sugar improving Vital Signs Period Temp Pulse Resp BP Sys/Alfonso Pulse Ox Last 24 Hr 97.1 F-97.5 F 57-77 20-20 131-150/61-76 100 PE: AOx3 Neck: supple, No JVD HEENT: EOMI Lungs: CTA CVS: S1S2 Abd: Benign EXt: Left foot vac dressing, +trace edema Neuro: No focal deficit CMP Sodium 135 mmol/L (136-145) L 05/30/18 06:45 Potassium 4.3 mmol/L (3.5-5.1) 05/30/18 06:45 Chloride 101 mmol/L (98-107) 05/30/18 06:45 Carbon Dioxide 27 mmol/L (21-32) 05/30/18 06:45 Anion Gap 6 MMOL/L (8-16) L 05/30/18 06:45 BUN 34 mg/dL (7-18) H 05/30/18 06:45 Creatinine 1.9 mg/dL (0.55-1.3) H 05/30/18 06:45 Creat Clearance w eGFR 35.54 (>60) 05/30/18 06:45 POC Glucometer 167 UNITS (80-120) 05/31/18 11:56 Random Glucose 155 mg/dL (74-106) H 05/30/18 06:45 Hemoglobin A1c % 6.1 % (4.2-6.3) 05/21/18 21:10 Lactic Acid 1.8 mmol/L (0.4-2.0) 05/21/18 19:18 Calcium 8.7 mg/dL (8.5-10.1) 05/30/18 06:45 Total Bilirubin 0.6 mg/dL (0.2-1) 05/30/18 06:45 AST 27 U/L (15-37) 05/30/18 06:45 ALT 40 U/L (13-61) 05/30/18 06:45 Alkaline Phosphatase 112 U/L (45-117) 05/30/18 06:45 Creatine Kinase 408 IU/L (26-308) H 05/21/18 14:07 Creatine Kinase Index 1.4 % (0.0-5.0) 05/21/18 14:07 CK-MB (CK-2) 5.9 ng/mL (0.5-3.6) H 05/21/18 14:07 Troponin I 0.04 ng/ml (0.00-0.05) 05/21/18 14:07 C-Reactive Protein 19.5 MG/DL (0.00-0.3) H 05/21/18 14:07 Total Protein 7.3 g/dl (6.4-8.2) 05/30/18 06:45 Albumin 2.6 g/dl (3.4-5.0) L 05/30/18 06:45 Current Medications Generic Name Dose Route Start Last Admin Trade Name Freq PRN Reason Stop Dose Admin Amlodipine Besylate 5 mg 05/23/18 10:00 05/31/18 09:19 Norvasc - PO 5 mg DAILY [facility] Administration Aspirin 81 mg 05/23/18 10:00 05/31/18 09:19 Asa - PO 81 mg DAILY [facility] Administration Atorvastatin Calcium 40 mg 05/22/18 22:00 05/30/18 22:10 Lipitor - PO 40 mg HS [facility] Administration Cholecalciferol 2,000 unit 05/22/18 22:00 05/31/18 09:19 Vitamin D3 - PO 2,000 unit BID [facility] Administration Clopidogrel Bisulfate 75 mg 05/23/18 10:00 05/31/18 09:19 Plavix - PO 75 mg DAILY [facility] Administration Glipizide 5 mg 05/30/18 16:30 05/31/18 06:23 Glucotrol - PO 5 mg BID@0700,1630 [facility] Administration Insulin Aspart 1 vial 05/23/18 22:00 05/30/18 22:11 Novolog Vial Sliding Scale - SQ Not Given HS [facility] Protocol Insulin Aspart 1 vial 05/27/18 11:03 05/31/18 11:57 Novolog Vial Sliding Scale - SQ 6 units TIDAC [facility] Administration Protocol Insulin Detemir 35 units 05/30/18 22:00 05/30/18 22:10 Levemir Vial SQ 35 units HS [facility] Administration Metoprolol Tartrate 50 mg 05/23/18 10:00 05/31/18 09:19 Lopressor - PO 50 mg DAILY [facility] Administration Sodium Hypochlorite 1 applic 05/23/18 10:00 05/31/18 09:19 Dakin's Solution 0.25% (Half-Strength) - TP Not Given BID [facility] Tamsulosin HCl 0.4 mg 05/23/18 08:30 05/31/18 09:19 Flomax - PO 0.4 mg DAILY@0830 TONNY Administration AP; T2DM uncontrolled S/P Amputation left big toe for infection HTN HLD CKD BGM Q ACHS Increase Levemir 37 units Daily at HS Novolog SS coverage Glipizide 5 mg BID with meals Local wound care Will f/u
--- NOTE | 2018-05-31 13:08 | PN ---
Progress Note (short form) - Note Progress Note: PT seen and examined today. Vac dressing changed. Vital Signs Period Temp Pulse Resp BP Sys/Alfonso Pulse Ox Last 24 Hr 97.1 F-97.5 F 57-77 20-20 131-150/61-76 100 Right foot: Vac dressing changed today. Irrigated with NS and cleaned with 4x4 gauze to remove any loose tissue. Bone exposed and wound bed grossly unchanged from Tuesday dressing change. Slight decrease to amount of necrotic tissue surrounding the wound edges. No foul odor. No purulent drainage. Reapplied white foam to bone and black foam to base. CBC, BMP 05/30/18 06:45 05/30/18 06:45 A/P: 68 yo male s/p Open ray amputation left 1st toe Continue local wound care with vac sponge dressing Plan for discharge to rehab with follow-up in Dr. Day office
[2018-05-31 14:37] VITALS: BP 121/72; PULSE 52; TEMP 97.8
--- NOTE | 2018-05-31 17:00 | DS ---
Physical Examination Vital Signs: Vital Signs Temperature 97.8 F 05/31/18 14:36 Pulse Rate 52 L 05/31/18 14:36 Respiratory Rate 18 05/31/18 14:36 Blood Pressure 121/72 05/31/18 14:36 O2 Sat by Pulse Oximetry (%) 100 05/30/18 21:00 Constitutional: Yes: No Distress HENT: Yes: Atraumatic Neck: Yes: Supple Cardiovascular: Yes: Regular Rate and Rhythm Respiratory: Yes: CTA Bilaterally Gastrointestinal: Yes: Normal Bowel Sounds Extremities: Yes: Other (left foot wound vac) Neurological: Yes: Alert, Oriented Labs: CBC, BMP 05/30/18 06:45 05/30/18 06:45 Discharge Summary Reason For Visit: WOUND CELLULITIS Current Active Problems Gangrene of toe of left foot (Acute) HTN (hypertension) (Acute) 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 (Acute) Sepsis (Acute) Wound cellulitis (Acute) Condition: Stable - Instructions Diet, Activity, Other Instructions: 1) continue wound vac changes M,W,F 2) elevate left LE 3) ABX per ID...total 10 days ,,,started on 05/26 Referrals: Hernando Santillan MD [Primary Care Provider] - Blanka James MD [Staff Physician] - Alok Nelson MD [Staff Physician] - - Home Medications Comprehensive Discharge Medication List: Ambulatory Orders Amlodipine Besylate [Norvasc -] 5 mg PO DAILY 08/04/14 Aspirin [ASA -] 81 mg PO DAILY 08/04/14 Atorvastatin Ca [Lipitor] 40 mg PO HS 08/04/14 Clopidogrel Bisulfate [Plavix -] 75 mg PO DAILY 08/04/14 Ergocalciferol [Vitamin D2] 2,000 unit PO BID 08/04/14 Glipizide [Glipizide ER] 10 mg PO DAILY 08/04/14 Insulin Aspart [Novolog Flexpen] 0 unit SQ BIDAC 08/04/14 Metoprolol Tartrate [Lopressor -] 50 mg PO DAILY 08/04/14 Tamsulosin HCl [Flomax -] 0.4 mg PO DAILY 08/04/14 Insulin Glargine,Hum.rec.anlog [Basaglar Kwikpen U-100] 31 unit SQ HS 05/21/18 Amox-Tr/K Cl [Augmentin 500-125mg Tablet -] 1 tab PO BID@0800,1730 #20 tablet dc snf
[2018-05-31] MEDS ORDERED: INSULIN (LEVEMIR) 100 UNITS/ML UNITS SQ SCH (22:00)
== END 2018-05-31 18:13 | DRG 854 ==
LOC: JER 13:01 → JERBED 19:05 → J5S 20:57
PROVIDERS: ADMIT Internal Medicine; ATTEND Internal Medicine
PROC: 0Y6Q0Z0 Detachment at Left 1st Toe, Complete, Open Approach (ICD-10-PCS; principal; 2018-05-22 17:30)
DX: A41.9 Sepsis, unspecified organism (principal); E11.52 Type 2 diabetes mellitus with diabetic peripheral angiopathy with gangrene; M86.172 Other acute osteomyelitis, left ankle and foot; I96 Gangrene, not elsewhere classified; Z68.41 Body mass index [BMI] 40.0-44.9, adult; E11.69 Type 2 diabetes mellitus with other specified complication; I25.10 Atherosclerotic heart disease of native coronary artery without angina pectoris; E11.621 Type 2 diabetes mellitus with foot ulcer; E66.9 Obesity, unspecified; I12.9 Hypertensive chronic kidney disease with stage 1 through stage 4 chronic kidney disease, or unspecified chronic kidney disease; E11.22 Type 2 diabetes mellitus with diabetic chronic kidney disease; N18.9 Chronic kidney disease, unspecified; E78.5 Hyperlipidemia, unspecified; E11.65 Type 2 diabetes mellitus with hyperglycemia; Z98.61 Coronary angioplasty status; Z79.4 Long term (current) use of insulin
CPT/HCPCS: 36415; 71045-TC-FY; 73590-TC-LT-FY; 73610-TC-LT-FY; 73630-TC-LT; 73700-TC-RT; 80053; 81003; 81015; 82550; 82553; 82962; 83036; 83605; 84484; 85025; 85610; 85651; 85730; 86140; 86850; 86900; 86901; 87040; 87070; 87086; 87186; 87205; 87324; 87449; 88305-TC; 88311-TC; 93005; 93010; 93926-TC; 93971-TC; 94760; 97116-GP; 97161-GP; 99285-25; J1644; J7030

== ENCOUNTER 2018-08-10 13:37 | Emergency (ER) | payer OTHER ==
--- NOTE | 2018-08-10 14:15 | PDOC ---
History of Present Illness - General Chief Complaint: Blood Pressure Problem Stated Complaint: HTN Time Seen by Provider: 08/10/18 14:10 - History of Present Illness Initial Comments: 08/10/18 14:14 68 yo M with h/o HTN, DM, CAD, CHF who p/w episode of isolated HTN. Patient reports isolated SBP of 200, while with visiting wound care nurse for diabetic toe wound. Pt. takes Amlodipine 5mg, and Metoprolol 50 mg. Patient took home dose of meds. Currently without symptoms. Patient denies CORTEZ, vision change, palpitations, cough, wheezing, orthopena, PND , leg swelling/pain, N/V, F,C, CP, SOB, urinary complaints, hematuria, BPR, abdominal pain, diarrhea, constipation, lightheadedness, weakness, sensory changes. PMHx: as noted above ROS: as noted Allergies: NKDA Past History - Past Medical History Allergies/Adverse Reactions: Allergies Allergy/AdvReac Type Severity Reaction Status Date / Time No Known Allergies Allergy Verified 08/10/18 14:07 Home Medications: Ambulatory Orders Amlodipine Besylate [Norvasc -] 5 mg PO DAILY 08/04/14 Aspirin [ASA -] 81 mg PO DAILY 08/04/14 Atorvastatin Ca [Lipitor] 40 mg PO HS 08/04/14 Clopidogrel Bisulfate [Plavix -] 75 mg PO DAILY 08/04/14 Ergocalciferol [Vitamin D2] 2,000 unit PO BID 08/04/14 Glipizide [Glipizide ER] 10 mg PO DAILY 08/04/14 Insulin Aspart [Novolog Flexpen] 0 unit SQ BIDAC 08/04/14 Metoprolol Tartrate [Lopressor -] 50 mg PO DAILY 08/04/14 Tamsulosin HCl [Flomax -] 0.4 mg PO DAILY 08/04/14 Insulin Glargine,Hum.rec.anlog [Basaglar Kwikpen U-100] 31 unit SQ HS 05/21/18 Anemia: No Asthma: No Cancer: No Cardiac Disorders: Yes (4 STENTS/ [place] 2014, BYPASS August) CVA: No COPD: No CHF: No Dementia: No Diabetes: Yes GI Disorders: No Disorders: No HTN: Yes Hypercholesterolemia: Yes Liver Disease: No Seizures: No Thyroid Disease: No - Surgical History Abdominal Surgery: (presently has abdominal hernia) Appendectomy: No Cardiac Surgery: Yes (cardiac stents x 4,August bypass) Cholecystectomy: No Lung Surgery: No Neurologic Surgery: No Orthopedic Surgery: No - Suicide/Smoking/Psychosocial Hx Smoking History: Unknown if ever smoked Have you smoked in the past 12 months: No Number of Cigarettes Smoked Daily: 0 If you are a former smoker, when did you quit?: 45 yrs ago Cigars Per Day: 0 Hx Alcohol Use: No Drug/Substance Use Hx: No Substance Use Type: None Hx Substance Use Treatment: No Review of Systems - Review of Systems Comments:: 08/10/18 14:14 GENERAL/CONSTITUTIONAL: No fever or chills. No weakness. HEAD, EYES, EARS, NOSE AND THROAT: No change in vision. No ear pain or discharge. No sore throat. CARDIOVASCULAR: No chest pain or shortness of breath RESPIRATORY: No cough, wheezing, or hemoptysis. GASTROINTESTINAL: No nausea, vomiting, diarrhea or constipation. GENITOURINARY: No dysuria, frequency, or change in urination. MUSCULOSKELETAL: No joint or muscle swelling or pain. No neck or back pain. SKIN: No rash NEUROLOGIC: No headache, vertigo, loss of consciousness, or change in strength/ sensation. ENDOCRINE: No increased thirst. No abnormal weight change HEMATOLOGIC/LYMPHATIC: No anemia, easy bleeding, or history of blood clots. ALLERGIC/IMMUNOLOGIC: No hives or skin allergy. *Physical Exam - Vital Signs Last Vital Signs Temp Pulse Resp BP Pulse Ox 97.7 F 52 L 16 139/80 99 08/10/18 14:08 08/10/18 14:08 08/10/18 14:08 08/10/18 14:08 08/10/18 14:08 - Physical Exam Comments: 08/10/18 14:14 GENERAL: Awake, alert, and fully oriented, in no acute distress HEAD: No signs of trauma, normocephalic, atraumatic EYES: PERRLA, EOMI, sclera anicteric, conjunctiva clear ENT: Auricles normal inspection, hearing grossly normal, nares patent, oropharynx clear without exudates. Moist mucosa NECK: Normal ROM, supple, no lymphadenopathy, JVD, or masses LUNGS: No distress, speaks full sentences, clear to auscultation bilaterally HEART: Regular rate and rhythm, normal S1 and S2, no murmurs, rubs or gallops, peripheral pulses normal and equal bilaterally. ABDOMEN: Soft, nontender, normoactive bowel sounds. No guarding, no rebound. No masses EXTREMITIES : Normal inspection, Normal range of motion, no edema. No clubbing or cyanosis. NEUROLOGICAL: Cranial nerves II through XII grossly intact. Normal speech, normal gait, no focal sensorimotor deficits SKIN: Warm, Dry, normal turgor, no rashes or lesions noted Moderate Sedation - Procedure Monitoring Vital Signs: Procedure Monitoring Vital Signs Temperature 97.7 F 08/10/18 14:08 Pulse Rate 52 L 08/10/18 14:08 Respiratory Rate 16 08/10/18 14:08 Blood Pressure 139/80 08/10/18 14:08 O2 Sat by Pulse Oximetry (%) 99 08/10/18 14:08 Medical Decision Making - Medical Decision Making 08/10/18 14:14 68 yo M with h/o HTN, DM, CAD, CHF who p/w episode of isolated HTN. BP 138/90, vitals wnl, AF, A&Ox3. Physical exam unremarkable. No evidence of end organ dysfunction or ischemia. Blood pressure currently well controlled. Will reassess. Ed Course: 08/10/18 14:33 Patient advised to f/u with PMD and continue antihypertensive regimen. Stable for d/c with return precautions. *DC/Admit/Observation/Transfer Diagnosis at time of Disposition: HTN (hypertension) Qualifiers: Hypertension type: unspecified Qualified Code(s): I10 - Essential (primary) hypertension - Discharge Dispostion Condition at time of disposition: Stable Decision to Admit order: No - Referrals Referrals: Hernando Santillan MD [Primary Care Provider] - - Patient Instructions Printed Discharge Instructions: DI for High Blood Pressure Additional Instructions: Please return to the emergency department with any new or worsening symptoms or concerns. Please follow up with your primary care physician within 72 hours. - Post Discharge Activity - Attestations Physician Attestion: 08/10/18 14:35 I attest to the information provided in this note.
[2018-08-10 14:18] VITALS: BP 139/80; PULSE 52; TEMP 97.7; BMI 35.9
--- NOTE | 2018-08-10 14:18 | PDOC ---
Attending Attestation - Resident Resident Name: Ranjeet Tucker - [facility] HPI: The patient is a 68 year old male, with a significant PMH of HTN, hypercholesterolemia, DM, CAD (s/p 4 stents), and CHF (s/p cardiac bypass), who presents to the emergency department today for elevated blood pressure earlier today. Patient notes he was in treatment earlier today for a toe wound secondary to his diabetes, when his systolic blood pressure was measured at 200. He notes his nurse contacted Dr. Santillan, who advised he come to the ED for treatment. Patient denies any symptoms at this time, and reports taking all of his daily medications today. The patient denies chest pain, shortness of breath, headache and dizziness. Denies fever, chills, nausea, vomit, diarrhea and constipation. Denies dysuria, frequency, urgency and hematuria. Allergies: NKA Past surgical history: 4 cardiac stents, cardiac bypass Social history: No reported PCP: Dr. Patience Santillan 08/10/18 14:40 - Physicial Exam PE: GENERAL: Awake, alert, and fully oriented, in no acute distress HEAD: No signs of trauma EYES: PERRLA, EOMI, sclera anicteric, conjunctiva clear ENT: Auricles normal inspection, hearing grossly normal, nares patent, oropharynx clear without exudates. Moist mucosa NECK: Normal ROM, supple, no lymphadenopathy, JVD, or masses LUNGS: Breath sounds equal, clear to auscultation bilaterally. No wheezes, and no crackles HEART: Regular rate and rhythm, normal S1 and S2, no murmurs, rubs or gallops ABDOMEN: Soft, nontender, normoactive bowel sounds. No guarding, no rebound. No masses EXTREMITIES: Normal range of motion, no edema. No clubbing or cyanosis. No cords, erythema, or tenderness NEUROLOGICAL: Cranial nerves II through XII grossly intact. Normal speech, normal gait SKIN: Warm, Dry, normal turgor, no rashes or lesions noted. 08/10/18 14:40 - Medical Decision Making Documentation prepared by DMITRY Guzman, acting as certified medical dosimetrist for Yvonne Castro MD. 08/10/18 14:40 <Jessiac Ahmadi - Last Filed: 08/10/18 14:40> - Medical Decision Making 08/12/18 16:48 Pt presents to the ED for asymptomatic HTN measured by [employer] that has now resolved. Will discharge home with follow up with PMD. <Yvonne Castro - Last Filed: 08/12/18 16:48>
== END 2018-08-10 14:52 | disposition home or self-care (01) ==
LOC: JER 13:37
DX: I10 Essential (primary) hypertension (principal); I25.810 Atherosclerosis of coronary artery bypass graft(s) without angina pectoris; I11.0 Hypertensive heart disease with heart failure; Z95.1 Presence of aortocoronary bypass graft; Z95.5 Presence of coronary angioplasty implant and graft; I25.2 Old myocardial infarction; E78.00 Pure hypercholesterolemia, unspecified; E11.9 Type 2 diabetes mellitus without complications; Z79.4 Long term (current) use of insulin
CPT/HCPCS: 99281-25

== ENCOUNTER 2020-01-14 10:16 | Emergency (ER) | payer OTHER ==
[2020-01-14 10:25] VITALS: TEMP 98.1; BMI 41.1
[2020-01-14] MEDS ORDERED: LABETALOL HCL 5 MG/1 ML (100MG/20 ML VIAL) IVPUSH ONE (11:23)
--- NOTE | 2020-01-14 11:48 | PDOC ---
History of Present Illness - General Chief Complaint: Blurry Vision Stated Complaint: BLURRY VISION Time Seen by Provider: 01/14/20 10:47 History Source: Patient Exam Limitations: No Limitations - History of Present Illness Initial Comments: 01/14/20 11:40 69M PMH HTN, HLD, IDDM, COPD, CAD s/p bypass presenting with b/l painless blurry vision. Noticed on Tuesday that right eye was blurry. subsequently, left eye became blurry last night apparently sudden onset. Denies headache, fevers, chills, sob, cp, palpitations. Denies new onset numbness, tingling, weakness. NKDA. PCP - Dr. Santillan. Pt takes amlodipine and metoprolol for pressure. Past History - Medical History Allergies/Adverse Reactions: Allergies Allergy/AdvReac Type Severity Reaction Status Date / Time No Known Allergies Allergy Verified 01/14/20 10:18 Home Medications: Ambulatory Orders Amlodipine Besylate [Norvasc -] 5 mg PO DAILY 08/04/14 Aspirin [ASA -] 81 mg PO DAILY 08/04/14 Atorvastatin Ca [Lipitor] 40 mg PO HS 08/04/14 Clopidogrel Bisulfate [Plavix -] 75 mg PO DAILY 08/04/14 Glipizide [Glipizide ER] 10 mg PO DAILY 08/04/14 Insulin Aspart [Novolog Flexpen] 0 unit SQ BIDAC 08/04/14 Metoprolol Tartrate [Lopressor -] 50 mg PO DAILY 08/04/14 Tamsulosin HCl [Flomax -] 0.4 mg PO DAILY 08/04/14 Insulin Glargine,Hum.rec.anlog [Basaglar Kwikpen U-100] 31 unit SQ HS 05/21/18 Becaplermin [Regranex] 15 gm TP DAILY #1 tube 11/07/18 Anemia: No Asthma: No Cancer: No Cardiac Disorders: Yes (4 STENTS/ [place] 2014, BYPASS August) CVA: No COPD: No CHF: No Dementia: No Diabetes: Yes GI Disorders: No Disorders: No HTN: Yes Hypercholesterolemia: Yes Liver Disease: No Seizures: No Thyroid Disease: No - Surgical History Abdominal Surgery: (presently has abdominal hernia) Appendectomy: No Cardiac Surgery: Yes (cardiac stents x 4,August bypass) Cholecystectomy: No Lung Surgery: No Neurologic Surgery: No Orthopedic Surgery: No - Immunization History Immunization Up to Date: No - Psycho-Social/Smoking History Smoking History: Former smoker Have you smoked in the past 12 months: No Number of Cigarettes Smoked Daily: 0 If you are a former smoker, when did you quit?: 1970 Cigars Per Day: 0 Information on smoking cessation initiated: No - Substance Abuse Hx (Audit-C & DAST Scrn) How often the patient has a drink containing alcohol: Never Score: In Men: 4 or > Positive; In Women: 3 or > Positive: 0 Screen Result (Pos requires Nsg. Audit-10AR): Negative In the last yr the pt used illegal drug/Rx for NonMed reason: No Score: Yes response is considered Positive: 0 Screen Result (Positive result requires Nsg. DAST-10): Negative Review of Systems - Review of Systems Able to Perform ROS?: Yes Comments:: 01/14/20 18:08 CONSTITUTIONAL: Denies F / C HEENT: + vision blurring / loss. + recent runny nose and ear pressure. Denies headache, lightheadedness, dizziness, sore throat, rhinorrhea RESP: Denies SOB CARD: Denies chest pain, palpitations GI: Denies N / V / D, abdominal pain, bloody stool, inability to tolerate PO : Denies dysuria, hematuria, frequency NEURO: Denies acute oneset numbness, tingling, weakness *Physical Exam - Vital Signs Last Vital Signs Temp Pulse Resp BP Pulse Ox 98.1 F 85 20 200/124 H 100 01/14/20 10:22 01/14/20 10:22 01/14/20 10:22 01/14/20 10:22 01/14/20 10:22 - Physical Exam 01/14/20 18:08 VS: BP 195/107 -> 160/95 GEN: Well appearing, NAD, comfortable. AAOx3. HEENT: NC/AT. PERRLA, EOMI. Able to grossly see figures but unable to accomplish snellen chart. Left vision worse than right. CN III-XII grossly intact. No facial asymmetry. CV: S1/S2, RRR, no m/r/g LUNG: CTAB, no wheezes, crackles, rales, rhonchi. GI: Obese, soft, ndnt, +BS, no guarding, no rebound. No masses. MSK: No obvious deformities of all extremities. SKIN: Warm, dry, no rashes appreciated. PSYCH: Normal mood and affect. NEURO: Moving all extremities well. Symmetric sensation. ED Treatment Course - LABORATORY CBC & Chemistry Diagram: 01/14/20 11:38 - RADIOLOGY Radiology Studies Ordered: Category Date Time Status HEAD CT (STROKE) [CT] Stat CT Scan 01/14/20 11:12 Ordered CHEST X-RAY PORTABLE* [RAD] Stat Radiology 01/14/20 10:47 Taken Medical Decision Making - Medical Decision Making 01/14/20 18:09 69M w/ b/l visual blurring / loss. Hypertensive but BP down to 140s/80s, will hold anti-HTN. CBC, CMP, Cardiac CXR CT Head environmental monitoring specialist BP q15m, if >/= 180/100 will start labetalol XFER [facility] Ophthomologist - Dr. Lane 01/14/20 12:23 Pt accepted to [facility] under Dr. Valdivia; patient endorsed by Dr. Crook pt endorsing worsening visual darkening, described as if "there is dried blood in eyes." // xfer [facility] 01/14/20 18:04 EKG 11:15 HR 79, sinus w/ 1st degree AV block. Left ax dev. QRS wide. TWI I, aVL, and V1. Discharge - Discharge Information Problems reviewed: Yes Clinical Impression/Diagnosis: Blurring of visual image of both eyes Condition: Guarded Disposition: TRANSFER ACUTE CARE/OTHER HOSP - Follow up/Referral Referrals: Hernando Santillan MD [Primary Care Provider] - - Patient Discharge Instructions - Post Discharge Activity
[2020-01-14 11:50] VITALS: BP 148/89; PULSE 76
[2020-01-14 12:29] LABS: INR 0.97 (0.83-1.09); PROTHROMBIN TIME (PATIENT) 11.5 SEC (9.7-13.0)
[2020-01-14 12:32] LABS: ACTIVATED PTT 32.5 SECONDS (25.2-36.5)
--- NOTE | 2020-01-14 12:44 | PDOC ---
Documentation entered by Shivani Ahmadi SCRIBE, acting as scribe for Rodri Ricardo MD. Rodri Ricardo MD: This documentation has been prepared by the Daiana morse Brenda, SCRIBE, under my direction and personally reviewed by me in its entirety. I confirm that the documentation accurately reflects all work, treatment, procedures, and medical decision making performed by me. Attending Attestation - Resident Resident Name: Andry Jain - ED Attending Attestation I have performed the following: I have examined & evaluated the patient, The case was reviewed & discussed with the resident, I agree w/resident's findings & plan, Exceptions are as noted - HPI HPI: 01/14/20 12:46 69 years old with past medical history significant for hypertension hyperlipidemia insulin-dependent diabetes COPD CAD status post bypass presents with bilateral painless decreased vision. Last week had a "head cold runny nose cough congestion" noticed that the vision in his right eye was very blurry. Left eye became blurry last night now can only see shapes and colors and movement. Denies headache chest pain shortness of breath no nausea no vomiting or diarrhea Insert my ROS statement - Physicial Exam PE: 01/14/20 12:46 Vitals: Triage Vital signs reviewed General Appearance: No acute distress, well nourished well developed, Head: Atraumatic, Eyes: Pupils equal reactive round, extraocular movement intact; Visual acuity unable to test can see basic movement and shapes and colors able to see light cannot do basic 1-2 finger discrimination Cardiac: Regular rate and rhythym, no murmurs, no rubs, no gallops, Lungs: Clear to auscultation bilateral, good air movement bilaterally, Abdomen: Soft, non distended, normal bowel sounds, non tender to palpation Genitourinary: Rectal: Exam deferred Extremities: Full range of motion to all extremities, no cyanosis, clubbing, or edema Skin: Warm and dry, no rashes or lesions, no rash, no petechiae Neuro: AOX3; strength intact to all extremities, sensation intact to all extremities, Psych: Normal mood, normal affect 01/14/20 18:20 - Critical Care Time Total Critical Care Time: 35 Critical Care Statement: The care of this patient involved high complexity decision making to prevent further life threatening deterioration of the patient's condition and/or to evaluate & treat vital organ system(s) failure or risk of failure. - Medical Decision Making 01/14/20 12:47 EKG performed at 1115 demonstrates sinus rhythm first-degree AV block left axis deviation left ventricular hypertrophy Interpreted by me 01/14/20 12:48 69 years old with past medical history significant for hypertension hyperlipidemia insulin-dependent diabetes COPD CAD status post bypass presents with bilateral painless decreased vision. Patient presented with abnormally high blood pressure both systolic and diastolic stat head CT ordered demonstrates no acute stroke BP controlled with IV labetalol Differential diagnosis includes CVA, hypertensive emergency, central vein occlusions, Case discussed with [facility] based on patient's preference Based on lack of ophthalmology on-call at our hospital patient will require transfer Patient hemodynamically stable for transfer at this time NIH Stroke Scale - Last Known Well Date/Time & Onset Date Last Known Well: 01/09/20 Time Last Known Well: 22:00 - Initial Evaluation Level of consciousness: Alert Ask patient the month and their age: Answers both correctly Ask patient to open & close eyes; make fist and let go: Obeys both correctly Visual field testing: No visual field loss Facial paresis (Show teeth/raise eyebrows/close eyes tight): Normal symmetrical movement Motor Function: Left Arm: Normal Motor Function: Right Arm: Normal (extends arm 90 (or 45) degrees for 10 seconds without drift Motor Function: Left Leg: Normal (extends leg 30 degrees for 5 seconds without drift) Motor Function: Right Leg: Normal (extends leg 30 degrees for 5 seconds without drift) Limb Ataxia: No ataxia Sensory(Use pinprick test arms,legs,trunk,face/side to side): Normal Best language (Describe picture, name items, read sentences): No Aphasia Dysarthria (read several words): Normal articulation Extinction and Inattention: No abnormality Discharge - Discharge Information Problems reviewed: Yes Clinical Impression/Diagnosis: Blurring of visual image of both eyes Condition: Guarded Disposition: TRANSFER ACUTE CARE/OTHER HOSP - Follow up/Referral Referrals: Hernando Santillan MD [Primary Care Provider] - - Patient Discharge Instructions - Post Discharge Activity
[2020-01-14 12:53] LABS: ALBUMIN 3.4 g/dl (3.4-5.0); BILIRUBIN,TOTAL 1.1 mg/dL (0.2-1); BLOOD UREA NITROGEN 30.4 mg/dL (7-18); CALCIUM 9.2 mg/dL (8.5-10.1); CREATININE 1.8 mg/dL (0.55-1.3); POTASSIUM 5.2 mmol/L (3.5-5.1)
--- NOTE | 2020-01-14 12:59 | EKG ---
Test Reason : Blood Pressure : / mmHG Vent. Rate : 079 BPM Atrial Rate : 079 BPM P-R Int : 242 ms QRS Dur : 134 ms QT Int : 424 ms P-R-T Axes : 057 -38 092 degrees QTc Int : 486 ms SINUS RHYTHM WITH 1ST DEGREE A-V BLOCK IVCD LEFT AXIS DEVIATION LEFT VENTRICULAR HYPERTROPHY WITH QRS WIDENING AND REPOLARIZATION ABNORMALITY CANNOT RULE OUT SEPTAL INFARCT (CITED ON OR BEFORE 21-MAY-2018) ABNORMAL ECG WHEN COMPARED WITH ECG OF 21-MAY-2018 14:04, PREMATURE ATRIAL COMPLEXES ARE NO LONGER PRESENT Confirmed by Eric Corrigan ([id number]) on 01/14/2020 12:58:46 PM Referred By: Confirmed By:Eric Corrigan
== END 2020-01-14 12:59 | disposition short-term general hospital (02) ==
LOC: JER 10:16
DX: H53.8 Other visual disturbances (principal)
CPT/HCPCS: 36415; 70450-TC; 71045-TC-FY; 80053; 82550; 82553; 84484; 85610; 85730; 93005; 93010; 99291

== ENCOUNTER 2020-08-10 12:20 | Inpatient (IN) | payer OTHER, MEDICARE ==
[2020-08-10] MEDS ORDERED: amLODIPine BESYLATE 10 MG TABLET (FP) PO ONE (12:56)
[2020-08-10] MEDS ORDERED: WATER IVPB ONE (12:58)
[2020-08-10] MEDS ORDERED: DEXTROSE 5% IVPB ONE (12:58)
[2020-08-10] MEDS ORDERED: VANCOMYCIN IVPB ONE (12:58)
[2020-08-10] MEDS ORDERED: VANCOMYCIN 2,000 MG in DEXTROSE 5%-WATER - 250 ML IVPB ONE (13:07)
[2020-08-10] MEDS ORDERED: VANCOMYCIN 2,000 MG in DEXTROSE 5%-WATER - 500 ML IVPB ONE (13:11)
[2020-08-10] MEDS ORDERED: PIPERACILLIN/TAZOB 2.25 GM 2.25 GM in DEXTROSE 5%-WATER - 50 ML IVPB SCH (13:15)
[2020-08-10 13:22] LABS: BASO % 1.1 % (0-2.0); EOS % 3.6 % (0-4.5); HEMATOCRIT 47.6 % (35.4-49); HEMOGLOBIN 15.8 GM/dL (11.7-16.9); MCH 29.1 pg (25.7-33.7); MCHC 33.2 g/dl (32.0-35.9); MEAN CELL VOLUME 87.6 fl (80-96); MEAN PLT VOLUME 9.3 fl (7.5-11.1); MONO % 6.6 % (3.8-10.2); NEUT % 73.7 % (42.8-82.8); PLATELET COUNT 162 K/MM3 (134-434); RBC 5.44 M/mm3 (4.00-5.60); RDW 14.3 % (11.9-15.9); WHITE BLOOD COUNT 7.4 K/mm3 (4.0-10.0)
[2020-08-10] MEDS ORDERED: amLODIPine BESYLATE 5 MG TABLET (FP) ONE (13:23)
[2020-08-10] MEDS ORDERED: VANCOMYCIN 1 GRAM (PRE-DOCKED) 2,000 MG/500 ML BAG IVPB ONE (13:23)
[2020-08-10 13:30] LABS: INR 0.98 (0.83-1.09); PROTHROMBIN TIME (PATIENT) 12.1 SEC (9.7-13.0)
[2020-08-10 13:34] LABS: ACTIVATED PTT 35.1 SECONDS (25.2-36.5)
[2020-08-10 13:41] LABS: POTASSIUM 4.9 mmol/L (3.5-5.1)
[2020-08-10 13:43] LABS: CALCIUM 9.2 mg/dL (8.5-10.1)
[2020-08-10 13:44] LABS: ALBUMIN 3.5 g/dl (3.4-5.0); BLOOD UREA NITROGEN 33.5 mg/dL (7-18)
[2020-08-10 13:47] LABS: CREATININE 1.8 mg/dL (0.55-1.3)
[2020-08-10 13:49] LABS: BILIRUBIN,TOTAL 1.4 mg/dL (0.2-1); TOT PROT 7.2 g/dl (6.4-8.2)
[2020-08-10] MEDS ORDERED: PIPERACILLIN/TAZOB 2.25 GM 2.25 GM/50 ML BAG IVPB ONE ×2 (16:19→22:33)
[2020-08-10] MEDS: PIPERACILLIN/TAZOB 2.25 GM 2.25 GM in DEXTROSE 5%-WATER - 50 ML IVPB SCH ×2 (17:39→22:46)
[2020-08-10 18:40] LABS: EPI CELLS 1 /uL (0-25.1); HYALINE CASTS 1 /uL (0-3.1); URINE APPEARANCE CLOUDY; URINE BACTERIA >9,000 /uL (0-1359); URINE BILIRUBIN NEGATIVE (NEGATIVE); URINE COLOR YELLOW; URINE GLUCOSE (UA) NEGATIVE (NEGATIVE); URINE KETONE NEGATIVE (NEGATIVE); URINE LEUK ESTERASE 1+ (NEGATIVE); URINE NITRITE NEGATIVE (NEGATIVE); URINE PROTEIN 3+ (NEGATIVE); URINE RBC 8 /uL (0-23.9); URINE UROBILINOGEN 0.2 mg/dL (0.2-1.0); URINE WBC 372 /uL (0-25.8)
[2020-08-10] MEDS ORDERED: HEPARIN NA (PORCINE) 5,000 UNITS/ML 1ML VIAL SQ SCH (22:00)
[2020-08-10] MEDS ORDERED: ASPIRIN 81 MG CHEWABLE TABLETS ONE (22:33)
[2020-08-10] MEDS ORDERED: METOPROLOL TARTRATE 50 MG TABLET (FP) ONE (22:33)
[2020-08-10] MEDS ORDERED: ATORVASTATIN CA 80 MG TABLET (FP) ONE (22:33)
[2020-08-10] MEDS: METOPROLOL TARTRATE 50 MG TABLET (FP) PO SCH (22:46)
[2020-08-10] MEDS: ATORVASTATIN CA 80 MG TABLET (FP) PO SCH (22:46)
[2020-08-10] MEDS: ASPIRIN 81 MG CHEWABLE TABLETS PO SCH (22:46)
[2020-08-10] MEDS: INSULIN SLIDING SCALE (NOVOLOG) 1 VIAL SQ SCH (22:47)
[2020-08-10] MEDS ORDERED: INSULIN (LEVEMIR) 100 UNITS/ML UNITS SQ ONE (22:50)
[2020-08-10] MEDS: INSULIN (LEVEMIR) 100 UNITS/ML UNITS SQ SCH (22:52)
[2020-08-10] MEDS: EZETIMIBE 10 MG TABLET (FP) PO SCH (23:52)
[2020-08-11] MEDS ORDERED: amLODIPine BESYLATE 5 MG TABLET (FP) PO ONE ×2 (03:03→15:45)
[2020-08-11] MEDS ORDERED: PIPERACILLIN/TAZOBACTAM 2.25 GM VIAL IVPB ONE ×2 (03:17→09:46)
[2020-08-11] MEDS ORDERED: DEXTROSE 5%-WATER - 50 ML IVPB ONE ×2 (03:17→09:46)
[2020-08-11] MEDS: PIPERACILLIN/TAZOB 2.25 GM 2.25 GM in DEXTROSE 5%-WATER - 50 ML IVPB SCH ×2 (03:34→09:56)
[2020-08-11 04:17] VITALS: BMI 41.8
[2020-08-11] MEDS: INSULIN SLIDING SCALE (NOVOLOG) 1 VIAL SQ SCH ×4 (06:08→21:44)
[2020-08-11] MEDS: glipiZIDE-XL 5 MG TAB.ER.24 PO SCH ×2 (06:08→17:00)
[2020-08-11] MEDS: ASPIRIN 81 MG CHEWABLE TABLETS PO SCH ×2 (09:55→21:48)
[2020-08-11] MEDS: TAMSULOSIN HCL 0.4 MG CAP PO SCH (09:55)
[2020-08-11] MEDS ORDERED: amLODIPine BESYLATE 5 MG TABLET (FP) PO SCH (10:00)
[2020-08-11] MEDS ORDERED: CLOPIDOGREL BISULFATE 75 MG TABLET (FP) PO SCH (10:00)
[2020-08-11] MEDS: METOPROLOL TARTRATE 50 MG TABLET (FP) PO SCH ×2 (10:02→21:48)
[2020-08-11] MEDS ORDERED: DEXTROSE 5%-WATER 100 ML IVPB ONE (11:33)
[2020-08-11] MEDS: CEFTRIAXONE 2 GM in DEXTROSE 5%-WATER 100 ML IVPB SCH (11:36)
[2020-08-11] MEDS ORDERED: PT OWN MED DRAWER 7, Y5N ONE (16:54)
[2020-08-11] MEDS: INSULIN (LEVEMIR) 100 UNITS/ML UNITS SQ SCH (21:45)
[2020-08-11] MEDS: ATORVASTATIN CA 80 MG TABLET (FP) PO SCH (21:48)
[2020-08-11] MEDS: EZETIMIBE 10 MG TABLET (FP) PO SCH (21:49)
[2020-08-12] MEDS: glipiZIDE-XL 5 MG TAB.ER.24 PO SCH ×2 (06:05→17:39)
[2020-08-12] MEDS: INSULIN SLIDING SCALE (NOVOLOG) 1 VIAL SQ SCH ×4 (06:08→21:32)
[2020-08-12] MEDS ORDERED: LIDOCAINE HCL 2% (20ML MULTI-DOSE VIAL) ONE (07:16)
[2020-08-12] MEDS ORDERED: LIDOCAINE HCL 1%, 10 MG/ML (20ML VIAL) ONE (07:17)
[2020-08-12] MEDS: PIPERACILLIN/TAZOB 2.25 GM 2.25 GM in DEXTROSE 5%-WATER - 50 ML IVPB SCH (07:24)
[2020-08-12] MEDS ORDERED: MIDAZOLAM HCL 2 MG/2 ML SINGLE DOSE VIAL ONE ×2 (07:46→08:53)
[2020-08-12] MEDS ORDERED: LIDOCAINE HCL 2% (50ML VIAL) SQ ONE ×2 (07:52)
[2020-08-12] MEDS ORDERED: ceFAZolin SODIUM 1 GM VIAL ONE (08:53)
[2020-08-12] MEDS ORDERED: BENZOIN/ALOE VERA/STORAX/TOLU 58 ML BOTTLE ONE (09:19)
[2020-08-12] MEDS ORDERED: PT OWN MED DRAWER 7, Y5N ONE ×3 (09:31→17:38)
[2020-08-12] MEDS ORDERED: DEXTROSE 5%-WATER 100 ML IVPB ONE (09:32)
[2020-08-12] MEDS: CEFTRIAXONE 2 GM in DEXTROSE 5%-WATER 100 ML IVPB SCH ×2 (09:47→12:33)
[2020-08-12] MEDS: TAMSULOSIN HCL 0.4 MG CAP PO SCH ×2 (09:47→12:32)
[2020-08-12] MEDS: METOPROLOL TARTRATE 50 MG TABLET (FP) PO SCH ×3 (09:47→21:29)
[2020-08-12] MEDS: ASPIRIN 81 MG CHEWABLE TABLETS PO SCH (09:47)
[2020-08-12] MEDS: amLODIPine BESYLATE 10 MG TABLET (FP) PO SCH ×2 (09:47→12:32)
[2020-08-12] MEDS ORDERED: ONDANSETRON 4 MG/2 ML VIAL IVPUSH PRN (09:54)
[2020-08-12] MEDS ORDERED: SODIUM CHLORIDE 1,000 ML IV SCH (10:00)
[2020-08-12] MEDS ORDERED: ACETAMINOPHEN 325 MG TABLET (FP) PO PRN (11:27)
[2020-08-12 12:01] LABS: BASO % 0.5 % (0-2.0); EOS % 1.5 % (0-4.5); HEMATOCRIT 44.6 % (35.4-49); HEMOGLOBIN 14.8 GM/dL (11.7-16.9); LYMPH % 7.3 % (8-40); MCHC 33.1 g/dl (32.0-35.9); MEAN CELL VOLUME 87.6 fl (80-96); MEAN PLT VOLUME 9.2 fl (7.5-11.1); MONO % 4.5 % (3.8-10.2); NEUT % 86.2 % (42.8-82.8); PLATELET COUNT 187 K/MM3 (134-434); RBC 5.09 M/mm3 (4.00-5.60); RDW 14.1 % (11.9-15.9); WHITE BLOOD COUNT 12.2 K/mm3 (4.0-10.0)
[2020-08-12 12:05] LABS: POTASSIUM 4.4 mmol/L (3.5-5.1)
[2020-08-12 12:07] LABS: CALCIUM 8.8 mg/dL (8.5-10.1)
[2020-08-12 12:11] LABS: CREATININE 1.8 mg/dL (0.55-1.3)
[2020-08-12 12:13] LABS: TOT PROT 6.1 g/dl (6.4-8.2)
[2020-08-12] MEDS ORDERED: INSULIN (NOVOLOG MIX 70/30) 100 UNITS/ML MDV SQ ONE (12:32)
[2020-08-12] MEDS ORDERED: DOCUSATE SODIUM 100 MG CAPSULE (FP) PO PRN (19:13)
[2020-08-12] MEDS: EZETIMIBE 10 MG TABLET (FP) PO SCH (21:28)
[2020-08-12] MEDS: ATORVASTATIN CA 80 MG TABLET (FP) PO SCH (21:30)
[2020-08-12] MEDS: INSULIN (LEVEMIR) 100 UNITS/ML UNITS SQ SCH (21:31)
[2020-08-13] MEDS ORDERED: PT OWN MED DRAWER 7, Y5N ONE ×5 (06:18→16:59)
[2020-08-13] MEDS: glipiZIDE-XL 5 MG TAB.ER.24 PO SCH ×2 (06:19→16:50)
[2020-08-13] MEDS: INSULIN SLIDING SCALE (NOVOLOG) 1 VIAL SQ SCH ×4 (06:20→21:46)
[2020-08-13 08:14] LABS: CALCIUM 8.7 mg/dL (8.5-10.1)
[2020-08-13 08:15] LABS: ALBUMIN 2.8 g/dl (3.4-5.0); BLOOD UREA NITROGEN 42.8 mg/dL (7-18)
[2020-08-13 08:18] LABS: CREATININE 2.5 mg/dL (0.55-1.3)
[2020-08-13 08:20] LABS: BILIRUBIN,TOTAL 1.1 mg/dL (0.2-1); TOT PROT 5.8 g/dl (6.4-8.2)
[2020-08-13 08:57] LABS: BASO % 0.6 % (0-2.0); EOS % 2.1 % (0-4.5); HEMOGLOBIN 13.2 GM/dL (11.7-16.9); LYMPH % 13.3 % (8-40); MCH 29.5 pg (25.7-33.7); MCHC 33.8 g/dl (32.0-35.9); MEAN CELL VOLUME 87.3 fl (80-96); MEAN PLT VOLUME 9.6 fl (7.5-11.1); PLATELET COUNT 142 K/MM3 (134-434); RBC 4.47 M/mm3 (4.00-5.60); RDW 14.1 % (11.9-15.9); WHITE BLOOD COUNT 8.5 K/mm3 (4.0-10.0)
[2020-08-13] MEDS ORDERED: DEXTROSE 5%-WATER 100 ML IVPB ONE (09:52)
[2020-08-13] MEDS: amLODIPine BESYLATE 10 MG TABLET (FP) PO SCH (09:57)
[2020-08-13] MEDS: CEFTRIAXONE 2 GM in DEXTROSE 5%-WATER 100 ML IVPB SCH (09:57)
[2020-08-13] MEDS: TAMSULOSIN HCL 0.4 MG CAP PO SCH (09:57)
[2020-08-13] MEDS: METOPROLOL TARTRATE 50 MG TABLET (FP) PO SCH ×2 (09:57→21:46)
[2020-08-13] MEDS: ASPIRIN 81 MG CHEWABLE TABLETS PO SCH ×2 (10:01→21:46)
[2020-08-13] MEDS ORDERED: SODIUM CHLORIDE 1,000 ML IV SCH (11:15)
[2020-08-13] MEDS: ATORVASTATIN CA 80 MG TABLET (FP) PO SCH (21:45)
[2020-08-13] MEDS: INSULIN (LEVEMIR) 100 UNITS/ML UNITS SQ SCH (21:46)
[2020-08-13] MEDS: EZETIMIBE 10 MG TABLET (FP) PO SCH (21:47)
[2020-08-14] MEDS ORDERED: PT OWN MED DRAWER 7, Y5N ONE (06:01)
[2020-08-14] MEDS: INSULIN SLIDING SCALE (NOVOLOG) 1 VIAL SQ SCH ×4 (06:02→21:55)
[2020-08-14] MEDS: glipiZIDE-XL 5 MG TAB.ER.24 PO SCH ×2 (06:03→17:38)
[2020-08-14 08:54] LABS: BASO % 0.8 % (0-2.0); EOS % 2.2 % (0-4.5); HEMATOCRIT 37.4 % (35.4-49); HEMOGLOBIN 12.6 GM/dL (11.7-16.9); LYMPH % 14.3 % (8-40); MCH 29.4 pg (25.7-33.7); MCHC 33.8 g/dl (32.0-35.9); MONO % 8.8 % (3.8-10.2); NEUT % 73.9 % (42.8-82.8); PLATELET COUNT 141 K/MM3 (134-434); RBC 4.29 M/mm3 (4.00-5.60); RDW 14.1 % (11.9-15.9); WHITE BLOOD COUNT 8.5 K/mm3 (4.0-10.0)
[2020-08-14 09:02] LABS: POTASSIUM 4.4 mmol/L (3.5-5.1)
[2020-08-14 09:11] LABS: CALCIUM 8.2 mg/dL (8.5-10.1)
[2020-08-14 09:12] LABS: BLOOD UREA NITROGEN 50.7 mg/dL (7-18); MAGNESIUM 2.2 mg/dL (1.8-2.4)
[2020-08-14 09:15] LABS: BILIRUBIN,TOTAL 0.9 mg/dL (0.2-1); CREATININE 2.4 mg/dL (0.55-1.3); PHOSPHOROUS 4.2 mg/dL (2.5-4.9)
[2020-08-14] MEDS ORDERED: DEXTROSE 5%-WATER 100 ML IVPB ONE (09:54)
[2020-08-14] MEDS: TAMSULOSIN HCL 0.4 MG CAP PO SCH (09:56)
[2020-08-14] MEDS: ASPIRIN 81 MG CHEWABLE TABLETS PO SCH ×2 (09:56→21:57)
[2020-08-14] MEDS: amLODIPine BESYLATE 10 MG TABLET (FP) PO SCH (09:57)
[2020-08-14] MEDS: METOPROLOL TARTRATE 50 MG TABLET (FP) PO SCH ×2 (09:57→21:56)
[2020-08-14] MEDS: CEFTRIAXONE 2 GM in DEXTROSE 5%-WATER 100 ML IVPB SCH (09:57)
[2020-08-14] MEDS ORDERED: INSULIN (NOVOLOG) ASPART 100 UNITS/ML 10ML VIAL ONE (20:41)
[2020-08-14] MEDS: INSULIN (LEVEMIR) 100 UNITS/ML UNITS SQ SCH (21:54)
[2020-08-14] MEDS: EZETIMIBE 10 MG TABLET (FP) PO SCH (21:56)
[2020-08-14] MEDS: ATORVASTATIN CA 80 MG TABLET (FP) PO SCH (21:56)
[2020-08-15] MEDS ORDERED: PT OWN MED DRAWER 7, Y5N ONE (05:53)
[2020-08-15] MEDS: INSULIN SLIDING SCALE (NOVOLOG) 1 VIAL SQ SCH ×2 (06:13→11:36)
[2020-08-15] MEDS: glipiZIDE-XL 5 MG TAB.ER.24 PO SCH (06:14)
[2020-08-15] MEDS ORDERED: INSULIN (NOVOLOG) ASPART 100 UNITS/ML 10ML VIAL ONE (07:41)
[2020-08-15] MEDS ORDERED: INSULIN (LEVEMIR) 100 UNITS/ML UNITS SQ ONE (07:41)
[2020-08-15 08:56] LABS: BASO % 0.8 % (0-2.0); EOS % 3.3 % (0-4.5); HEMATOCRIT 37.3 % (35.4-49); HEMOGLOBIN 12.3 GM/dL (11.7-16.9); LYMPH % 17.1 % (8-40); MEAN CELL VOLUME 87.9 fl (80-96); MEAN PLT VOLUME 10.2 fl (7.5-11.1); MONO % 8.2 % (3.8-10.2); NEUT % 70.6 % (42.8-82.8); PLATELET COUNT 134 K/MM3 (134-434); RBC 4.25 M/mm3 (4.00-5.60); RDW 14.2 % (11.9-15.9)
[2020-08-15 09:19] LABS: POTASSIUM 4.3 mmol/L (3.5-5.1)
[2020-08-15] MEDS: METOPROLOL TARTRATE 50 MG TABLET (FP) PO SCH (09:25)
[2020-08-15 09:26] LABS: BLOOD UREA NITROGEN 43.3 mg/dL (7-18); CALCIUM 8.7 mg/dL (8.5-10.1); MAGNESIUM 2.4 mg/dL (1.8-2.4)
[2020-08-15] MEDS: TAMSULOSIN HCL 0.4 MG CAP PO SCH (09:26)
[2020-08-15] MEDS: ASPIRIN 81 MG CHEWABLE TABLETS PO SCH (09:26)
[2020-08-15] MEDS: amLODIPine BESYLATE 10 MG TABLET (FP) PO SCH (09:26)
[2020-08-15 09:29] LABS: CREATININE 2.1 mg/dL (0.55-1.3); PHOSPHOROUS 3.4 mg/dL (2.5-4.9)
[2020-08-15 15:39] VITALS: BP 134/78; PULSE 55; TEMP 98.3
[2020-08-16] MEDS ORDERED: BACITRACIN 15 GM TUBE TOPICAL OINTMENT TP SCH (15:00)
== END 2020-08-15 17:13 | disposition home or self-care (01) | DRG 617 ==
LOC: JER 12:20 → JERBED 14:19 → UNDOADMIN 16:37 → J8W 08-11 02:42
PROVIDERS: ADMIT Internal Medicine; ATTEND Internal Medicine
PROC: 0Y6M0ZB Detachment at Right Foot, Partial 2nd Ray, Open Approach (ICD-10-PCS; 2020-08-12)
PROC: 0Y6M0ZC Detachment at Right Foot, Partial 3rd Ray, Open Approach (ICD-10-PCS; 2020-08-12)
PROC: 0Y6M0ZD Detachment at Right Foot, Partial 4th Ray, Open Approach (ICD-10-PCS; 2020-08-12)
PROC: 0Y6M0ZF Detachment at Right Foot, Partial 5th Ray, Open Approach (ICD-10-PCS; 2020-08-12)
PROC: 0Y6M0Z9 Detachment at Right Foot, Partial 1st Ray, Open Approach (ICD-10-PCS; principal; 2020-08-12 07:30)
DX: E11.69 Type 2 diabetes mellitus with other specified complication (principal); L97.515 Non-pressure chronic ulcer of other part of right foot with muscle involvement without evidence of necrosis; M86.9 Osteomyelitis, unspecified; I50.40 Unspecified combined systolic (congestive) and diastolic (congestive) heart failure; Z68.41 Body mass index [BMI] 40.0-44.9, adult; I13.0 Hypertensive heart and chronic kidney disease with heart failure and stage 1 through stage 4 chronic kidney disease, or unspecified chronic kidney disease; E11.621 Type 2 diabetes mellitus with foot ulcer; I25.10 Atherosclerotic heart disease of native coronary artery without angina pectoris; E66.01 Morbid (severe) obesity due to excess calories; N40.0 Benign prostatic hyperplasia without lower urinary tract symptoms; N17.9 Acute kidney failure, unspecified; N18.30 Chronic kidney disease, stage 3 unspecified; E11.21 Type 2 diabetes mellitus with diabetic nephropathy; Z95.1 Presence of aortocoronary bypass graft; E78.5 Hyperlipidemia, unspecified; K64.9 Unspecified hemorrhoids
CPT/HCPCS: 36415; 71045-TC-FY; 73630-TC-RT-FY; 80048; 80053; 81003; 82550; 82553; 82565; 82962; 83605; 83735; 84100; 84156; 84300; 84484; 85025; 85610; 85730; 86850; 86900; 86901; 87040; 87070; 87075; 87086; 87186; 87205; 93005; 93010; 94760; 99285-25; C9803; U0003

== ENCOUNTER 2020-08-16 10:06 | Inpatient (IN) | payer OTHER, MEDICARE ==
[2020-08-16 10:19] VITALS: BMI 40.4
[2020-08-16] MEDS ORDERED: morphine CARPU-JECT 2 MG/1 ML DISP.SYRIN IVPUSH PRN (13:24)
[2020-08-16] MEDS ORDERED: ACETAMINOPHEN 325 MG TABLET (FP) PO PRN (13:24)
[2020-08-16] MEDS ORDERED: HEPARIN NA (PORCINE) 5,000 UNITS/ML 1ML VIAL ONE (14:05)
[2020-08-16] MEDS: HEPARIN NA (PORCINE) 5,000 UNITS/ML 1ML VIAL SQ SCH ×2 (14:42→17:24)
[2020-08-16] MEDS: INSULIN SLIDING SCALE (NOVOLOG) 1 VIAL SQ SCH ×2 (17:25→22:30)
[2020-08-16] MEDS ORDERED: OMEGA PO SCH (22:00)
[2020-08-16] MEDS: EZETIMIBE 10 MG TABLET (FP) PO SCH (22:30)
[2020-08-16] MEDS: ASPIRIN 81 MG CHEWABLE TABLETS PO SCH (22:30)
[2020-08-16] MEDS: ATORVASTATIN CA 80 MG TABLET (FP) PO SCH (22:30)
[2020-08-16] MEDS: METOPROLOL TARTRATE 50 MG TABLET (FP) PO SCH (22:30)
[2020-08-16] MEDS: INSULIN (LEVEMIR) 100 UNITS/ML UNITS SQ SCH (22:30)
[2020-08-17] MEDS: HEPARIN NA (PORCINE) 5,000 UNITS/ML 1ML VIAL SQ SCH ×3 (03:19→17:53)
[2020-08-17] MEDS: INSULIN SLIDING SCALE (NOVOLOG) 1 VIAL SQ SCH ×4 (06:49→22:24)
[2020-08-17 08:37] LABS: EOS % 4.7 % (0-4.5); HEMATOCRIT 36.9 % (35.4-49); HEMOGLOBIN 12.5 GM/dL (11.7-16.9); LYMPH % 18.1 % (8-40); MCH 29.1 pg (25.7-33.7); MCHC 33.7 g/dl (32.0-35.9); MEAN CELL VOLUME 86.4 fl (80-96); MEAN PLT VOLUME 9.6 fl (7.5-11.1); NEUT % 68.2 % (42.8-82.8); PLATELET COUNT 183 K/MM3 (134-434); RBC 4.27 M/mm3 (4.00-5.60); RDW 14.1 % (11.9-15.9); WHITE BLOOD COUNT 6.9 K/mm3 (4.0-10.0)
[2020-08-17 08:43] LABS: INR 1.11 (0.83-1.09); PROTHROMBIN TIME (PATIENT) 13.4 SEC (9.7-13.0)
[2020-08-17] MEDS: TAMSULOSIN HCL 0.4 MG CAP PO SCH (08:48)
[2020-08-17 09:13] LABS: POTASSIUM 4.6 mmol/L (3.5-5.1)
[2020-08-17 09:24] LABS: BLOOD UREA NITROGEN 37.3 mg/dL (7-18); MAGNESIUM 2.4 mg/dL (1.8-2.4)
[2020-08-17 09:27] LABS: PHOSPHOROUS 3.2 mg/dL (2.5-4.9)
[2020-08-17 09:28] LABS: BILIRUBIN,TOTAL 1.1 mg/dL (0.2-1); TOT PROT 6.3 g/dl (6.4-8.2)
[2020-08-17] MEDS: OMEGA-3 ACID ETHYL ESTERS (FATTY-ACIDS) 1 GM CAPSULE (FP) PO SCH ×2 (09:31→22:20)
[2020-08-17] MEDS: METOPROLOL TARTRATE 50 MG TABLET (FP) PO SCH ×2 (09:31→22:20)
[2020-08-17] MEDS: CLOPIDOGREL BISULFATE 75 MG TABLET (FP) PO SCH (09:32)
[2020-08-17] MEDS ORDERED: amLODIPine BESYLATE 10 MG TABLET (FP) PO SCH (10:00)
[2020-08-17] MEDS: ASPIRIN 81 MG CHEWABLE TABLETS PO SCH ×2 (10:51→22:20)
[2020-08-17] MEDS: ATORVASTATIN CA 80 MG TABLET (FP) PO SCH (22:21)
[2020-08-17] MEDS: EZETIMIBE 10 MG TABLET (FP) PO SCH (22:21)
[2020-08-17] MEDS: INSULIN (LEVEMIR) 100 UNITS/ML UNITS SQ SCH (22:24)
[2020-08-18] MEDS: HEPARIN NA (PORCINE) 5,000 UNITS/ML 1ML VIAL SQ SCH ×2 (01:41→09:33)
[2020-08-18] MEDS: INSULIN SLIDING SCALE (NOVOLOG) 1 VIAL SQ SCH ×4 (06:20→21:08)
[2020-08-18] MEDS: ASPIRIN 81 MG CHEWABLE TABLETS PO SCH ×2 (09:33→21:09)
[2020-08-18] MEDS: TAMSULOSIN HCL 0.4 MG CAP PO SCH (09:33)
[2020-08-18] MEDS: METOPROLOL TARTRATE 50 MG TABLET (FP) PO SCH (09:33)
[2020-08-18] MEDS: OMEGA-3 ACID ETHYL ESTERS (FATTY-ACIDS) 1 GM CAPSULE (FP) PO SCH ×2 (09:34→21:07)
[2020-08-18] MEDS: CLOPIDOGREL BISULFATE 75 MG TABLET (FP) PO SCH (09:35)
[2020-08-18] MEDS: amLODIPine BESYLATE 5 MG TABLET (FP) PO SCH (10:39)
[2020-08-18 12:33] LABS: EOS % 3.4 % (0-4.5); LYMPH % 14.9 % (8-40); MCH 28.8 pg (25.7-33.7); MCHC 33.3 g/dl (32.0-35.9); MEAN CELL VOLUME 86.5 fl (80-96); NEUT % 74.7 % (42.8-82.8); PLATELET COUNT 192 K/MM3 (134-434); RBC 4.16 M/mm3 (4.00-5.60); RDW 13.8 % (11.9-15.9); WHITE BLOOD COUNT 7.6 K/mm3 (4.0-10.0)
[2020-08-18 12:55] LABS: POTASSIUM 4.4 mmol/L (3.5-5.1)
[2020-08-18 12:59] LABS: CALCIUM 8.8 mg/dL (8.5-10.1)
[2020-08-18 13:00] LABS: BLOOD UREA NITROGEN 36.5 mg/dL (7-18); MAGNESIUM 2.3 mg/dL (1.8-2.4)
[2020-08-18 13:04] LABS: BILIRUBIN,TOTAL 1.3 mg/dL (0.2-1); TOT PROT 6.5 g/dl (6.4-8.2)
[2020-08-18] MEDS: VITAMIN D3 PO SCH ×2 (17:07→23:56)
[2020-08-18 19:14] LABS: BILIRUBIN,DIRECT 0.2 mg/dL (0.0-0.2)
[2020-08-18] MEDS: INSULIN (LEVEMIR) 100 UNITS/ML UNITS SQ SCH (21:05)
[2020-08-18] MEDS: EZETIMIBE 10 MG TABLET (FP) PO SCH (21:07)
[2020-08-18] MEDS: ATORVASTATIN CA 80 MG TABLET (FP) PO SCH (21:09)
[2020-08-19] MEDS: INSULIN SLIDING SCALE (NOVOLOG) 1 VIAL SQ SCH ×3 (06:26→17:04)
[2020-08-19 07:59] LABS: HEMATOCRIT 35.6 % (35.4-49); HEMOGLOBIN 12.1 GM/dL (11.7-16.9); MCH 29.2 pg (25.7-33.7); MEAN PLT VOLUME 9.7 fl (7.5-11.1); PLATELET COUNT 201 K/MM3 (134-434); RBC 4.14 M/mm3 (4.00-5.60); RDW 13.9 % (11.9-15.9); WHITE BLOOD COUNT 6.5 K/mm3 (4.0-10.0)
[2020-08-19 08:13] LABS: POTASSIUM 4.3 mmol/L (3.5-5.1)
[2020-08-19 08:19] LABS: ALBUMIN 2.9 g/dl (3.4-5.0); BLOOD UREA NITROGEN 31.5 mg/dL (7-18); MAGNESIUM 2.3 mg/dL (1.8-2.4)
[2020-08-19 08:23] LABS: CREATININE 1.8 mg/dL (0.55-1.3); PHOSPHOROUS 3.4 mg/dL (2.5-4.9)
[2020-08-19 08:24] LABS: TOT PROT 6.3 g/dl (6.4-8.2)
[2020-08-19] MEDS ORDERED: CHOLECALCIFEROL (VIT D3) 1,000 UNIT (25 MCG) TABLET PO SCH (10:00)
[2020-08-19] MEDS: CLOPIDOGREL BISULFATE 75 MG TABLET (FP) PO SCH (11:15)
[2020-08-19] MEDS: amLODIPine BESYLATE 5 MG TABLET (FP) PO SCH (11:16)
[2020-08-19] MEDS: TAMSULOSIN HCL 0.4 MG CAP PO SCH (11:16)
[2020-08-19] MEDS: OMEGA-3 ACID ETHYL ESTERS (FATTY-ACIDS) 1 GM CAPSULE (FP) PO SCH (11:16)
[2020-08-19] MEDS: ASPIRIN 81 MG CHEWABLE TABLETS PO SCH (11:16)
[2020-08-19 15:24] VITALS: BP 150/83; PULSE 57; TEMP 98.2
== END 2020-08-19 19:39 | DRG 565 ==
LOC: JER 10:06 → JERBED 12:45 → J8W 16:55
PROVIDERS: ADMIT Internal Medicine; ATTEND Internal Medicine
PROC: 0HQMXZZ Repair Right Foot Skin, External Approach (ICD-10-PCS; principal; 2020-08-19)
DX: T87.81 Dehiscence of amputation stump (principal); M86.60 Other chronic osteomyelitis, unspecified site; M96.830 Postprocedural hemorrhage of a musculoskeletal structure following a musculoskeletal system procedure; Z68.41 Body mass index [BMI] 40.0-44.9, adult; Y83.5 Amputation of limb(s) as the cause of abnormal reaction of the patient, or of later complication, without mention of misadventure at the time of the procedure; Z89.431 Acquired absence of right foot; I25.10 Atherosclerotic heart disease of native coronary artery without angina pectoris; N40.0 Benign prostatic hyperplasia without lower urinary tract symptoms; I13.10 Hypertensive heart and chronic kidney disease without heart failure, with stage 1 through stage 4 chronic kidney disease, or unspecified chronic kidney disease; E11.69 Type 2 diabetes mellitus with other specified complication; E78.5 Hyperlipidemia, unspecified; N18.30 Chronic kidney disease, stage 3 unspecified; E11.21 Type 2 diabetes mellitus with diabetic nephropathy; Z95.1 Presence of aortocoronary bypass graft; E11.65 Type 2 diabetes mellitus with hyperglycemia; Z95.5 Presence of coronary angioplasty implant and graft; E66.9 Obesity, unspecified
CPT/HCPCS: 36415; 80053; 80076; 82962; 83735; 84100; 85025; 85027; 85610; 97116-GP; 97161-GP; 99285-25; C9803; J1644; U0003

== ENCOUNTER 2023-01-21 11:39 | Inpatient (IN) | payer OTHER, MEDICARE ==
[2023-01-21 11:46] VITALS: BMI 43.0
[2023-01-21] MEDS ORDERED: PIPERACILLIN/TAZOB 3.375 GM 3.375 GM in DEXTROSE 5%-WATER - 50 ML IVPB ONE (13:23)
[2023-01-21] MEDS ORDERED: VANCOMYCIN 1,000 MG in DEXTROSE 5%-WATER - 250 ML IVPB ONE (13:23)
[2023-01-21] MEDS ORDERED: VANCOMYCIN 1 GRAM (PRE-DOCKED) 1,000 MG/250 ML BAG IVPB ONE (14:24)
[2023-01-21] MEDS ORDERED: PIPERACILLIN/TAZOB 3.375 GM 3.375 GM/50 ML BAG IVPB ONE (14:24)
[2023-01-21 14:33] LABS: EOS % 3.2 % (0-4.5); HEMATOCRIT 46.3 % (35.4-49); HEMOGLOBIN 15.6 GM/dL (11.7-16.9); MCH 28.1 pg (25.7-33.7); MCHC 33.6 g/dl (32.0-35.9); MEAN CELL VOLUME 83.5 fl (80-96); MEAN PLT VOLUME 8.9 fl (7.5-11.1); MONO % 6.3 % (3.8-10.2); NEUT % 71.5 % (42.8-82.8); PLATELET COUNT 216 10^3/uL (134-434); RBC 5.54 M/mm3 (4.00-5.60); RDW 15.2 % (11.9-15.9); WHITE BLOOD COUNT 7.9 K/mm3 (4.0-10.0)
[2023-01-21 14:49] LABS: POTASSIUM 4.2 mmol/L (3.5-5.1)
[2023-01-21 14:51] LABS: CALCIUM 8.5 mg/dL (8.5-10.1)
[2023-01-21 14:52] LABS: ALBUMIN 3.2 g/dl (3.4-5.0); BLOOD UREA NITROGEN 30.9 mg/dL (7-18)
[2023-01-21 14:55] LABS: CREATININE 1.9 mg/dL (0.55-1.3)
[2023-01-21 14:56] LABS: TOT PROT 7.3 g/dl (6.4-8.2)
[2023-01-21 15:02] LABS: INR 1.1 (0.83-1.09); PROTHROMBIN TIME (PATIENT) 12.8 SEC (9.7-13.0)
[2023-01-21 15:05] LABS: ACTIVATED PTT 34.3 SECONDS (25.2-36.5)
[2023-01-21] MEDS ORDERED: ACETAMINOPHEN 325 MG TABLET (FP) PO PRN (22:34)
[2023-01-21] MEDS ORDERED: VANCOMYCIN/WATER 1250 MG 1,250 MG/250 ML BAG IVPB SCH (22:45)
[2023-01-22] MEDS ORDERED: CLINDAMYCIN 600MG PREMIX IVPB 600 MG/50 ML BAG IVPB ONE (00:18)
[2023-01-22] MEDS: CLINDAMYCIN 600MG PREMIX IVPB 600 MG/50 ML BAG IVPB SCH ×4 (00:25→18:11)
[2023-01-22] MEDS ORDERED: PIPERACILLIN/TAZOB 3.375 GM 3.375 GM in DEXTROSE 5%-WATER - 50 ML IVPB SCH (02:00)
[2023-01-22] MEDS ORDERED: CLINDAMYCIN 600MG PREMIX IVPB 600 MG/50 ML BAG IVPB SCH (02:00)
[2023-01-22] MEDS: glipiZIDE-XL 5 MG TAB.ER.24 PO SCH ×2 (08:29→16:57)
[2023-01-22 10:21] LABS: EOS % 2.3 % (0-4.5); HEMATOCRIT 44.7 % (35.4-49); HEMOGLOBIN 14.7 GM/dL (11.7-16.9); LYMPH % 13.7 % (8-40); MCH 28.1 pg (25.7-33.7); MCHC 32.8 g/dl (32.0-35.9); MEAN CELL VOLUME 85.5 fl (80-96); MEAN PLT VOLUME 9.8 fl (7.5-11.1); MONO % 5.1 % (3.8-10.2); NEUT % 77.9 % (42.8-82.8); PLATELET COUNT 205 10^3/uL (134-434); RBC 5.23 M/mm3 (4.00-5.60); RDW 14.9 % (11.9-15.9); WHITE BLOOD COUNT 7.4 K/mm3 (4.0-10.0)
[2023-01-22 10:38] LABS: POTASSIUM 5.4 mmol/L (3.5-5.1)
[2023-01-22 10:47] LABS: CALCIUM 8.7 mg/dL (8.5-10.1)
[2023-01-22 10:48] LABS: ALBUMIN 2.9 g/dl (3.4-5.0); BILIRUBIN,TOTAL 1.6 mg/dL (0.2-1); BLOOD UREA NITROGEN 36.2 mg/dL (7-18)
[2023-01-22 10:51] LABS: CREATININE 2.3 mg/dL (0.55-1.3)
[2023-01-22 10:53] LABS: TOT PROT 6.6 g/dl (6.4-8.2)
[2023-01-22] MEDS: TAMSULOSIN HCL 0.4 MG CAP PO SCH (11:17)
[2023-01-22] MEDS: CLOPIDOGREL BISULFATE 75 MG TABLET (FP) PO SCH (11:18)
[2023-01-22] MEDS: amLODIPine BESYLATE 10 MG TABLET (FP) PO SCH (11:18)
[2023-01-22] MEDS: FUROSEMIDE 40 MG TABLET (FP) PO SCH (11:19)
[2023-01-22] MEDS: ENOXAPARIN NA (PORCINE) 40 MG/0.4 ML DISP.SYRIN SQ SCH (11:20)
[2023-01-22] MEDS: LACTOBACILLUS ACIDOPHILUS 1 TABLET PO SCH (15:40)
[2023-01-22] MEDS: INSULIN SLIDING SCALE (NOVOLOG) 1 VIAL SQ SCH (16:26)
[2023-01-23] MEDS: ASPIRIN 81 MG CHEWABLE TABLETS PO SCH ×2 (00:33→21:57)
[2023-01-23] MEDS: ATORVASTATIN CA 40 MG TABLET (FP) PO SCH ×2 (00:33→21:58)
[2023-01-23] MEDS: INSULIN SLIDING SCALE (NOVOLOG) 1 VIAL SQ SCH ×5 (00:39→22:26)
[2023-01-23] MEDS: CLINDAMYCIN 600MG PREMIX IVPB 600 MG/50 ML BAG IVPB SCH ×3 (02:55→17:59)
[2023-01-23] MEDS: glipiZIDE-XL 5 MG TAB.ER.24 PO SCH ×2 (06:15→16:30)
[2023-01-23] MEDS: TAMSULOSIN HCL 0.4 MG CAP PO SCH (10:30)
[2023-01-23] MEDS: LACTOBACILLUS ACIDOPHILUS 1 TABLET PO SCH (10:30)
[2023-01-23] MEDS: FUROSEMIDE 40 MG TABLET (FP) PO SCH (10:30)
[2023-01-23] MEDS: ENOXAPARIN NA (PORCINE) 40 MG/0.4 ML DISP.SYRIN SQ SCH (10:30)
[2023-01-23] MEDS: CLOPIDOGREL BISULFATE 75 MG TABLET (FP) PO SCH (10:31)
[2023-01-23] MEDS: amLODIPine BESYLATE 10 MG TABLET (FP) PO SCH (10:31)
[2023-01-23 16:16] LABS: BASO % 1.1 % (0-2.0); EOS % 3.6 % (0-4.5); HEMOGLOBIN 14.2 GM/dL (11.7-16.9); LYMPH % 17.7 % (8-40); MCH 28.2 pg (25.7-33.7); MCHC 33.9 g/dl (32.0-35.9); MEAN CELL VOLUME 83.2 fl (80-96); MEAN PLT VOLUME 8.8 fl (7.5-11.1); MONO % 7.6 % (3.8-10.2); PLATELET COUNT 194 10^3/uL (134-434); RBC 5.06 M/mm3 (4.00-5.60); WHITE BLOOD COUNT 6.2 K/mm3 (4.0-10.0)
[2023-01-23 16:36] LABS: POTASSIUM 4.6 mmol/L (3.5-5.1)
[2023-01-23 16:39] LABS: ALBUMIN 2.8 g/dl (3.4-5.0); BLOOD UREA NITROGEN 38.8 mg/dL (7-18); CALCIUM 8.5 mg/dL (8.5-10.1)
[2023-01-23 16:42] LABS: CREATININE 2.2 mg/dL (0.55-1.3)
[2023-01-23 16:44] LABS: BILIRUBIN,TOTAL 0.7 mg/dL (0.2-1); TOT PROT 6.4 g/dl (6.4-8.2)
[2023-01-24] MEDS: CLINDAMYCIN 600MG PREMIX IVPB 600 MG/50 ML BAG IVPB SCH ×3 (01:13→17:20)
[2023-01-24] MEDS: INSULIN SLIDING SCALE (NOVOLOG) 1 VIAL SQ SCH ×4 (06:35→21:23)
[2023-01-24] MEDS: glipiZIDE-XL 5 MG TAB.ER.24 PO SCH ×2 (06:40→16:38)
[2023-01-24] MEDS: FUROSEMIDE 40 MG TABLET (FP) PO SCH (09:41)
[2023-01-24] MEDS: LACTOBACILLUS ACIDOPHILUS 1 TABLET PO SCH (09:41)
[2023-01-24] MEDS: TAMSULOSIN HCL 0.4 MG CAP PO SCH (09:41)
[2023-01-24] MEDS: amLODIPine BESYLATE 10 MG TABLET (FP) PO SCH (09:42)
[2023-01-24] MEDS: ENOXAPARIN NA (PORCINE) 40 MG/0.4 ML DISP.SYRIN SQ SCH (09:42)
[2023-01-24] MEDS: CLOPIDOGREL BISULFATE 75 MG TABLET (FP) PO SCH (09:43)
[2023-01-24] MEDS: ATORVASTATIN CA 40 MG TABLET (FP) PO SCH (21:22)
[2023-01-24] MEDS: ASPIRIN 81 MG CHEWABLE TABLETS PO SCH (21:23)
[2023-01-25] MEDS: CLINDAMYCIN 600MG PREMIX IVPB 600 MG/50 ML BAG IVPB SCH ×2 (01:15→09:54)
[2023-01-25] MEDS: INSULIN SLIDING SCALE (NOVOLOG) 1 VIAL SQ SCH ×4 (06:12→21:35)
[2023-01-25] MEDS: glipiZIDE-XL 5 MG TAB.ER.24 PO SCH ×2 (06:33→17:16)
[2023-01-25 06:38] VITALS: RESP 18
[2023-01-25] MEDS: ENOXAPARIN NA (PORCINE) 40 MG/0.4 ML DISP.SYRIN SQ SCH (09:53)
[2023-01-25] MEDS: FUROSEMIDE 40 MG TABLET (FP) PO SCH (09:53)
[2023-01-25] MEDS: amLODIPine BESYLATE 10 MG TABLET (FP) PO SCH (09:53)
[2023-01-25] MEDS: TAMSULOSIN HCL 0.4 MG CAP PO SCH (09:54)
[2023-01-25] MEDS: CLOPIDOGREL BISULFATE 75 MG TABLET (FP) PO SCH (09:54)
[2023-01-25] MEDS: LACTOBACILLUS ACIDOPHILUS 1 TABLET PO SCH (09:54)
[2023-01-25] MEDS: ATORVASTATIN CA 40 MG TABLET (FP) PO SCH (21:35)
[2023-01-25] MEDS: ASPIRIN 81 MG CHEWABLE TABLETS PO SCH (21:35)
[2023-01-26] MEDS: INSULIN SLIDING SCALE (NOVOLOG) 1 VIAL SQ SCH ×2 (06:04→11:36)
[2023-01-26] MEDS: glipiZIDE-XL 5 MG TAB.ER.24 PO SCH (06:05)
[2023-01-26 06:44] VITALS: TEMP 97.3
[2023-01-26] MEDS: TAMSULOSIN HCL 0.4 MG CAP PO SCH (08:18)
[2023-01-26] MEDS: FUROSEMIDE 40 MG TABLET (FP) PO SCH (09:43)
[2023-01-26] MEDS: LACTOBACILLUS ACIDOPHILUS 1 TABLET PO SCH (09:44)
[2023-01-26] MEDS: amLODIPine BESYLATE 10 MG TABLET (FP) PO SCH (09:44)
[2023-01-26] MEDS: CLOPIDOGREL BISULFATE 75 MG TABLET (FP) PO SCH (09:45)
[2023-01-26] MEDS: ENOXAPARIN NA (PORCINE) 40 MG/0.4 ML DISP.SYRIN SQ SCH (09:45)
[2023-01-26 11:45] VITALS: BP 157/79; PULSE 56
[2023-01-26 12:11] LABS: POTASSIUM 4.6 mmol/L (3.5-5.1)
[2023-01-26 12:24] LABS: BLOOD UREA NITROGEN 28.4 mg/dL (7-18); CALCIUM 8.8 mg/dL (8.5-10.1)
[2023-01-26 12:27] LABS: CREATININE 1.8 mg/dL (0.55-1.3)
[2023-01-26 12:29] LABS: BILIRUBIN,TOTAL 0.9 mg/dL (0.2-1)
[2023-01-26 12:30] LABS: TOT PROT 6.8 g/dl (6.4-8.2)
== END 2023-01-26 11:46 | disposition home or self-care (01) | DRG 603 ==
LOC: JER 11:39 → JERBED 13:39 → J5S 01-22 01:28
PROVIDERS: ADMIT Internal Medicine; ATTEND Internal Medicine
DX: L03.116 Cellulitis of left lower limb (principal); Z68.41 Body mass index [BMI] 40.0-44.9, adult; M86.672 Other chronic osteomyelitis, left ankle and foot; N17.9 Acute kidney failure, unspecified; I13.0 Hypertensive heart and chronic kidney disease with heart failure and stage 1 through stage 4 chronic kidney disease, or unspecified chronic kidney disease; I50.42 Chronic combined systolic (congestive) and diastolic (congestive) heart failure; L03.115 Cellulitis of right lower limb; E11.51 Type 2 diabetes mellitus with diabetic peripheral angiopathy without gangrene; J44.9 Chronic obstructive pulmonary disease, unspecified; E78.5 Hyperlipidemia, unspecified; E11.40 Type 2 diabetes mellitus with diabetic neuropathy, unspecified; E66.01 Morbid (severe) obesity due to excess calories; N40.0 Benign prostatic hyperplasia without lower urinary tract symptoms; I87.8 Other specified disorders of veins; I25.2 Old myocardial infarction; I25.119 Atherosclerotic heart disease of native coronary artery with unspecified angina pectoris; E11.22 Type 2 diabetes mellitus with diabetic chronic kidney disease; N18.9 Chronic kidney disease, unspecified; Z89.422 Acquired absence of other left toe(s); Z95.1 Presence of aortocoronary bypass graft
CPT/HCPCS: 36415; 80053; 82962; 83605; 85025; 85610; 85730; 86850; 86900; 86901; 87040; 93005; 93010; 93970-TC; 99285-25; G0463-25